=== PATIENT | male | born 1990 | race Caucasian/White ===

== ENCOUNTER 2016-12-09 09:08 | Emergency (ER) | payer OTHER ==
[~2016-12-09] VITALS: Ht 190.5 cm; Wt 82.8 kg
[2016-12-09 09:09] VITALS: TEMP 37.2; Ht 190.5 cm; Wt 82.8 kg
[2016-12-09 10:36] LABS: BASO % 0.2 %; BASO ABS # 0.02 K/uL (0-0.2); COMPLETE YES; EOS % 0.4 %; HEMATOCRIT 40.1 % (42-52); IG% 0.1 %; LYMPH ABS # 2.65 K/uL (1.2-3.4); MEAN CELL VOLUME 83.2 fL (80-100); MEAN CORPUSCULAR HEMOGLOBIN 29.3 pg (25-34); MEAN CORPUSCULAR HGB CONC 35.2 g/dl (32-36); MEAN PLATELET VOLUME 10.5 fL (7.4-10.4); MONO % 12.2 %; NEUT % 59.1 %; PLATELET COUNT 245 K/uL (130-400); RED BLOOD COUNT 4.82 M/uL (4.7-6.1); WHITE BLOOD COUNT 9.46 K/uL (4.8-10.8)
[2016-12-09 10:47] LABS: PARTIAL THROMBOPLASTIN RATIO 1.1
[2016-12-09 10:53] LABS: BUN/CREATININE RATIO 10.8 (10-20); CREATININE 0.88 mg/dl (0.60-1.40); MAGNESIUM 2.2 mg/dl (1.8-2.4); POTASSIUM 3.2 mmol/L (3.5-5.1)
[2016-12-09 10:57] LABS: C-REACTIVE PROTEIN 4.86 mg/dl (0-0.29)
--- NOTE | 2016-12-09 11:15 | DIAGNOSTIC IMAGING REPORT ---
LEFT FOREARM ULTRASOUND CLINICAL HISTORY: pain/swelling to mid forearm COMPARISON STUDY: None. FINDINGS: There is extensive subcutaneous edema within the mid left forearm is a thrombosed superficial vein at this location. Adjacent to the thrombus vessel there is a 1.3 x 1.0 x 0.6 cm complex hypoechoic area. IMPRESSION: Thrombus superficial vein within the mid left forearm. There is an adjacent 1.3 x 1.0 x 0.6 cm complex hypoechoic area. This may represent a small developing abscess or hematoma. Follow-up ultrasound is recommended to ensure resolution. Electronically signed by: Jhoan Yuan M.D. 12/09/2016 11:14 AM Dictated Date/Time: 12/09/2016 11:11 AM
--- NOTE | 2016-12-09 11:16 | DIAGNOSTIC IMAGING REPORT ---
LEFT UPPER EXTREMITY VENOUS DOPPLER HISTORY: pain/swelling to mid forearm COMPARISON STUDY: None. FINDINGS: The left internal jugular vein is patent. There is normal flow within the left subclavian vein. There is normal flow and compressibility within the left axillary, basilic, brachial, radial, ulnar, and visualized cephalic veins. There is a thrombosed superficial vein within the mid left forearm. IMPRESSION: No DVT within the left upper extremity. However, there is a thrombosed superficial vein within the mid left forearm. Electronically signed by: Jhoan Yuan M.D. 12/09/2016 11:15 AM Dictated Date/Time: 12/09/2016 11:14 AM
[2016-12-09] MEDS ORDERED: CEFTRIAXONE SOD INJ 1 GM ADDVIAL IV STA (11:49)
[2016-12-09] MEDS ORDERED: SULFAMETHOXAZOLE/TRIMETHOPRIM DS 800/160MG TAB PO STA (11:49)
--- NOTE | 2016-12-09 12:07 | DIAGNOSTIC IMAGING REPORT ---
LEFT FOREARM 2 VIEWS ROUTINE CLINICAL HISTORY: Left forearm pain and swelling. COMPARISON: None FINDINGS: No fracture or osseous lesion is identified within the left radius or ulna. Alignment of the left elbow is anatomic and there is no joint effusion. IMPRESSION: No osseous abnormality of the left radius or ulna. Electronically signed by: Gordo Alvarez M.D. 12/09/2016 12:05 PM Dictated Date/Time: 12/09/2016 12:04 PM
[2016-12-09] MEDS ORDERED: KETOROLAC TROMETHAMINE 30 MG/ML VIAL IV STA (12:27)
[2016-12-09] MEDS ORDERED: CEPH500C PO (13:31)
[2016-12-09] MEDS ORDERED: TRAM-10 PO (13:31)
[2016-12-09] MEDS ORDERED: SULF800T23 PO (13:31)
--- NOTE | 2016-12-09 13:32 | EMERGENCY ROOM VISIT NOTE ---
History First contact with patient: 09:47 Chief Complaint: ARM PAIN Stated Complaint: LEFT FOREARM SWOLLEN, FEVER, VOMITING History of Present Illness The patient is a 26 year old male who presents to the Emergency Department by private vehicle for evaluation of pain and swelling to the LEFT forearm. He reports that he recently returned from [place]. He has had symptoms of pain and increasing swelling over the past week. There has been no recent trauma to the affected area. He denies any recent IV drug use. He reports swelling to the area without redness. He reports subjective fevers at home. He has used Tylenol with minimal relief of symptoms. He is had nausea and vomiting at home as well. He denies any history of similar symptoms or history of MRSA infection. He rates his current discomfort as a 10/10. He reports pain with range of motion of the affected forearm. He denies any numbness or tingling into the distal extremity. He denies any dizziness, lightheadedness, chest pain , palpitations, shortness of breath. He has no history of blood clots or bleeding disorders otherwise. Review of Systems A complete 10-point Review of Systems was discussed with the patient, with pertinent positives and negatives listed in the History of Present Illness. All remaining Review of Systems questions can be considered negative unless otherwise specified. Past Medical/Surgical History Medical Problems: (1) Depression (2) PNA (pneumonia) (3) [place] Teeth Removal Family History Patient reports no known family medical history. Social History Smoking Status: Current Every Day Smoker Smokeless Tobacco Use: No Alcohol Use: occasionally Drug Use: none Marital Status: single Housing Status: lives alone Occupation Status: employed Current/Historical Medications Scheduled Cephalexin Monohydrate (Keflex), 500 MG PO TID Sulfa/Trimethoprim (Bactrim Ds 800MG/160MG), 1 TAB PO BID Scheduled PRN Tramadol (Ultram), 1-2 TAB PO Q4H PRN for Pain Allergies Coded Allergies: No Known Allergies (Unverified , NONE, 12/09/16) Physical Exam Vital Signs Date Time Temp Pulse Resp B/P Pulse Ox O2 Delivery O2 Flow Rate FiO2 12/09/16 13:48 84 16 135/74 96 12/09/16 12:20 70 16 122/74 97 Room Air 12/09/16 09:09 37.2 87 18 138/87 98 Room Air Pain Rating (0-10): 10 Physical Exam VITAL SIGNS - Vital signs and nursing notes were reviewed. GENERAL - 26-year-old male appearing his stated age and in noticeable discomfort throughout the exam. MUSCULOSKELETAL - palpable lump noted to the lateral surface of the mid LEFT forearm. No fluctuance to palpation. No overlying erythema or ecchymosis. Subjectively tender to palpation. Mild edema noted in this area. Decreased range of motion distally secondary to patient's subjective discomfort. No lymphangitic streaking. NEUROLOGIC - SENSORY: Spinothalamic tract was found to be intact with ability to discriminate sharp versus dull sensation at the level of the LEFT elbow down to the fingertips. No sensory deficits of the dorsal column were appreciated utilizing light touch for evaluation. VASCULAR - Capillary refill was brisk. +3/5 radial pulse palpated. Medical Decision & Procedures ER Provider Diagnostic Interpretation: Radiological imaging and reports were reviewed by myself. Radiologist's Interpretation as follows: LEFT FOREARM ULTRASOUND CLINICAL HISTORY: pain/swelling to mid forearm COMPARISON STUDY: None. FINDINGS: There is extensive subcutaneous edema within the mid left forearm is a thrombosed superficial vein at this location. Adjacent to the thrombus vessel there is a 1.3 x 1.0 x 0.6 cm complex hypoechoic area. IMPRESSION: Thrombus superficial vein within the mid left forearm. There is an adjacent 1.3 x 1.0 x 0.6 cm complex hypoechoic area. This may represent a small developing abscess or hematoma. Follow-up ultrasound is recommended to ensure resolution. LEFT FOREARM 2 VIEWS ROUTINE CLINICAL HISTORY: Left forearm pain and swelling. COMPARISON: None FINDINGS: No fracture or osseous lesion is identified within the left radius or ulna. Alignment of the left elbow is anatomic and there is no joint effusion. IMPRESSION: No osseous abnormality of the left radius or ulna. LEFT UPPER EXTREMITY VENOUS DOPPLER HISTORY: pain/swelling to mid forearm COMPARISON STUDY: None. FINDINGS: The left internal jugular vein is patent. There is normal flow within the left subclavian vein. There is normal flow and compressibility within the left axillary, basilic, brachial, radial, ulnar, and visualized cephalic veins. There is a thrombosed superficial vein within the mid left forearm. IMPRESSION: No DVT within the left upper extremity. However, there is a thrombosed superficial vein within the mid left forearm. Laboratory Results 12/09/16 10:10 Red Blood Count 4.82, Mean Corpuscular Volume 83.2, Mean Corpuscular Hemoglobin 29.3, Mean Corpuscular Hemoglobin Concent 35.2, Mean Platelet Volume 10.5, Neutrophils (%) (Auto) 59.1, Lymphocytes (%) (Auto) 28.0, Monocytes (%) (Auto) 12.2, Eosinophils (%) (Auto) 0.4, Basophils (%) (Auto) 0.2, Neutrophils # (Auto ) 5.59, Lymphocytes # (Auto) 2.65, Monocytes # (Auto) 1.15, Eosinophils # (Auto ) 0.04, Basophils # (Auto) 0.02 12/09/16 10:10 Test 12/09/16 10:10 White Blood Count 9.46 K/uL (4.8-10.8) Red Blood Count 4.82 M/uL (4.7-6.1) Hemoglobin 14.1 g/dL (14.0-18.0) Hematocrit 40.1 % (42-52) Mean Corpuscular Volume 83.2 fL (80-100) Mean Corpuscular Hemoglobin 29.3 pg (25-34) Mean Corpuscular Hemoglobin Concent 35.2 g/dl (32-36) Platelet Count 245 K/uL (130-400) Mean Platelet Volume 10.5 fL (7.4-10.4) Neutrophils (%) (Auto) 59.1 % Lymphocytes (%) (Auto) 28.0 % Monocytes (%) (Auto) 12.2 % Eosinophils (%) (Auto) 0.4 % Basophils (%) (Auto) 0.2 % Neutrophils # (Auto) 5.59 K/uL (1.4-6.5) Lymphocytes # (Auto) 2.65 K/uL (1.2-3.4) Monocytes # (Auto) 1.15 K/uL (0.11-0.59) Eosinophils # (Auto) 0.04 K/uL (0-0.5) Basophils # (Auto) 0.02 K/uL (0-0.2) RDW Standard Deviation 43.6 fL (36.4-46.3) RDW Coefficient of Variation 14.2 % (11.5-14.5) Immature Granulocyte % (Auto) 0.1 % Immature Granulocyte # (Auto) 0.01 K/uL (0.00-0.02) Erythrocyte Sedimentation Rate 14 mm/hr (0-14) Prothrombin Time 11.0 SECONDS (9.0-12.0) Prothromb Time International Ratio 1.0 (0.9-1.1) Activated Partial Thromboplast Time 29.8 SECONDS (21.0-31.0) Partial Thromboplastin Ratio 1.1 Anion Gap 9.0 mmol/L (3-11) Est Creatinine Clear Calc Drug Dose 147.7 ml/min Estimated GFR () 136.4 Estimated GFR (Non- 117.7 BUN/Creatinine Ratio 10.8 (10-20) Calcium Level 9.0 mg/dl (8.5-10.1) Magnesium Level 2.2 mg/dl (1.8-2.4) Total Bilirubin 0.5 mg/dl (0.2-1) Aspartate Amino Transf (AST/SGOT) 12 U/L (15-37) Alanine Aminotransferase (ALT/SGPT) 19 U/L (12-78) Alkaline Phosphatase 44 U/L (45-117) Total Creatine Kinase 26 U/L (39-308) C-Reactive Protein 4.86 mg/dl (0-0.29) Total Protein 6.9 gm/dl (6.4-8.2) Albumin 3.5 gm/dl (3.4-5.0) Globulin 3.4 gm/dl (2.5-4.0) Albumin/Globulin Ratio 1.0 (0.9-2) Medications Administered Medications (Trade) Dose Ordered Sig/Onofre Route Start Time Stop Time Status Last Admin Dose Admin Ceftriaxone Sodium (Rocephin Inj) 1 gm NOW STAT IV 12/09/16 11:49 12/09/16 11:50 DC 12/09/16 12:33 1 GM Trimethoprim/ Sulfamethoxazole (Septra Ds 800/ 160MG Tab) 1 tab NOW STAT PO 12/09/16 11:49 12/09/16 11:50 DC 12/09/16 12:33 1 TAB Ketorolac Tromethamine (Toradol Inj) 30 mg NOW STAT IV 12/09/16 12:27 12/09/16 12:28 DC 12/09/16 12:43 30 MG ED Course Patient was seen and evaluated by myself. Labs were drawn, saline lock in place. X-ray of the affected forearm and ultrasound of the affected area as well as DVT evaluation were performed. Laboratory results demonstrate no acute leukocytosis, worrisome anemia, or bandemia. The patient has no significant electrolyte abnormalities. ESR is not elevated. CRP is minimally elevated. Patient was treated with IV Rocephin and oral Bactrim. Imaging studies as above. Laboratory results and imaging studies were reviewed with the patient who acknowledges understanding. Patient was educated on wound recheck in 48 hours. He was educated on worrisome symptoms for return visit to the emergency department. Patient discharged home afebrile and in good condition. Medical Decision Given the patient's presentation and stated complaints, I did elect to perform the above-mentioned workup. The patient presents today with pain and swelling to the LEFT forearm. He has no fever leukocytosis. He does have subjective fevers at home, however. The patient declines any use of intravenous drugs, however on reviewing his records, the patient has had multi-substance abuse in the past. I do not appreciate any track ramirez on exam. X-ray demonstrates no foreign bodies. Ultrasound demonstrates an area of collection which could be consistent with abscess or hematoma to the affected area. Exam is not consistent with a cellulitis or abscess at this point. He will be covered prophylactically with Keflex and Bactrim. He will follow-up in 48 hours for wound recheck. He will return for any changing or worsening symptoms. Patient discharged home afebrile and in good condition. In the evaluation and treatment of this patient, the following differential diagnoses were considered: Cellulitis, dermatitis, foreign body, necrotizing fasciitis, amongst others. Impression Primary Impression: Left upper extremity swelling Departure Information Dispostion Home / Self-Care Condition GOOD Prescriptions Tramadol (Ultram) 50 Mg Tab 1-2 TAB PO Q4H Y for Pain, #16 TAB For Initial Treatment Prov: Nestor Wayne PA-C 12/09/16 Sulfa/Trimethoprim (Bactrim Ds 800MG/160MG) Tab 1 TAB PO BID for 10 Days, #20 TAB Prov: Nestor Wayne PA-C 12/09/16 Cephalexin Monohydrate (Keflex) 500 Mg Cap 500 MG PO TID for 10 Days, #30 CAP Prov: Nestor Wayne PA-C 12/09/16 Referrals Nohelia Pham M.D. (MEDICAL) (PCP) Patient Instructions My [facility] Additional Instructions You've been seen in the emergency department today for a hematoma or early abscess to the LEFT upper extremity. Please take the Keflex and Bactrim as prescribed. You have been prescribed Ultram to be used for pain control. This is a narcotic medication. You cannot drive or consume alcohol while on this medicine. This medicine should only be used for pain that cannot be controlled with over-the- counter pain medicines. For pain control, you can use the following [id number] medicines (if >12 yo): - Regular strength (325mg/tab) Tylenol (acetaminophen) 2 tabs every 4-6 hours as needed. Do not exceed 12 tablets in a 24 hour period. Avoid taking more than 4 grams (4000 mg) of Tylenol per day. This includes any other sources of acetaminophen you may take on a regular basis. - Regular strength (200 mg/tab) Advil (ibuprofen) 1-2 tabs every 4-6 hours as needed. Do not exceed a dose of 3200 mg per day. Follow-up with your primary care provider for recheck of the forearm in 48 hours. Return sooner for any changing or worsening symptoms.
[2016-12-09 13:48] VITALS: BP 135/74; PULSE 84; O2SAT 96
[2017-01-06] MEDS ORDERED: WARF5TAB90 PO (18:12)
[2017-01-06] MEDS ORDERED: CEPH-571 PO (18:12)
[2017-01-06] MEDS ORDERED: OXYC-57 PO (18:12)
[2017-01-06] MEDS ORDERED: LVNIS80 SQ (18:12)
[2017-01-06] MEDS ORDERED: METR-163 PO (18:12)
== END 2016-12-09 13:48 | disposition home or self-care (01) ==
LOC: C.EDB 09:09
DX: M79.89 Other specified soft tissue disorders (principal); F32.9 Major depressive disorder, single episode, unspecified; F17.210 Nicotine dependence, cigarettes, uncomplicated

== ENCOUNTER 2016-12-11 18:02 | Inpatient (IN) | payer OTHER ==
[~2016-12-11] VITALS: Ht 190.5 cm; Wt 81.3 kg
[~2016-12-11 18:02] MED LIST: CEPH500C PO; SULF800T23 PO; TRAM-10 PO
[2016-12-11 19:46] LABS: BASO % 0.3 %; BASO ABS # 0.04 K/uL (0-0.2); COMPLETE YES; EOS % 0.7 %; HEMATOCRIT 39.8 % (42-52); IG% 0.1 %; LYMPH % 22.2 %; LYMPH ABS # 3.01 K/uL (1.2-3.4); MEAN CELL VOLUME 84.1 fL (80-100); MEAN CORPUSCULAR HEMOGLOBIN 29.6 pg (25-34); MEAN CORPUSCULAR HGB CONC 35.2 g/dl (32-36); MEAN PLATELET VOLUME 10.3 fL (7.4-10.4); MONO % 11.3 %; NEUT % 65.4 %; PLATELET COUNT 270 K/uL (130-400); RED BLOOD COUNT 4.73 M/uL (4.7-6.1); WHITE BLOOD COUNT 13.57 K/uL (4.8-10.8)
[2016-12-11] MEDS ORDERED: HYDROmorphone INJ 1 MG/ML SYR IV STA ×2 (19:58→20:45)
[2016-12-11] MEDS ORDERED: ONDANSETRON INJ 2 MG/ML 2 ML VIAL IV STA (19:58)
[2016-12-11] MEDS ORDERED: HYDROmorphone INJ 0.5 MG/0.5 ML SYR ONE ×2 (20:09→20:48)
[2016-12-11 20:24] LABS: ALB/GLOB RATIO 0.8 (0.9-2); BUN/CREATININE RATIO 7.3 (10-20); CALCIUM 8.8 mg/dl (8.5-10.1); CREATININE 0.97 mg/dl (0.60-1.40); POTASSIUM 3.9 mmol/L (3.5-5.1)
[2016-12-11] MEDS ORDERED: FENTANYL CITRATE INJ 50 MCG/1 ML 2 ML VIAL IV PRN (21:45)
[2016-12-11] MEDS ORDERED: HYDROmorphone INJ 1 MG/ML SYR IV PRN (21:45)
[2016-12-11] MEDS ORDERED: ATROPINE SULFATE 0.1 MG/ML 5ML SYR IV PRN (21:45)
[2016-12-11] MEDS ORDERED: ONDANSETRON INJ 2 MG/ML 2 ML VIAL IV PRN (21:45)
[2016-12-11] MEDS ORDERED: MEPERIDINE HCL 25 MG/ML CARP IV PRN (21:45)
[2016-12-11] MEDS ORDERED: LABETALOL HCL IV 5 MG/ML 20ML IV PRN (21:45)
[2016-12-11] MEDS ORDERED: EpHEDrine SULFATE INJ 50 MG/ML AMP IV PRN (21:45)
--- NOTE | 2016-12-11 21:48 | History & Physical Bridge Note ---
H&P Re-Evaluation Bridge Note: I have examined the patient, reviewed the History & Physical and in the interval since the performance of the History & Physical I have noted the following changes of clinical significance: No changes noted. Left volar forearm abscess with impending compartment syndrome. Consult/H and P completed # [id number]. Gonzalo Castillo DO
[2016-12-11] MEDS ORDERED: MIDAZOLAM HCL 1 MG/ML 2ML VIAL ONE (21:57)
[2016-12-11] MEDS ORDERED: FENTANYL CITRATE INJ 50 MCG/1 ML 2 ML VIAL ONE ×4 (21:57→23:32)
[2016-12-11] MEDS ORDERED: BACITRACIN 50000 UNIT VIAL IR ONE (22:41)
--- NOTE | 2016-12-11 22:58 | [facility] Post Operative Brief Note ---
Immediate Operative Summary Operative Date Dec 11, 2016. Pre-Operative Diagnosis Left forearm abscess, Impending Compartment Syndrome Post-Operative Diagnosis Left forearm abscess, Impending Compartment Syndrome, Local Muscle necrosis Brachioradialis Procedure(s) Performed Incision and Drainage Volar Forearm Abscess; Debridement of fascia; Debridement of Brachioradialis Muscle Surgeon Dr. Castillo Marine Engine Machinist Apprentice Surgeon(s) none Estimated Blood Loss 20 cc Findings See Dict Specimens For culture #1 Left forearm abcess sent for aerobic/anaerobic/gram stain culture and sensitivity Drains Iodoform gauze 1/2" x 2 Anesthesia GLMA Complication(s) None Disposition Recovery Room / PACU
[2016-12-11] MEDS ORDERED: MAGNESIUM HYDROXIDE SUSP 30 ML UDC PO PRN (23:00)
[2016-12-11] MEDS ORDERED: ACETAMINOPHEN 325 MG TAB PO PRN (23:00)
[2016-12-11] MEDS ORDERED: ALUMINUM/MAGNESIUM/SIMETH (MAALOX MAX) 30 ML UDC PO PRN (23:00)
[2016-12-11] MEDS ORDERED: ZOLPIDEM TARTRATE 5 MG TAB PO PRN (23:00)
[2016-12-11] MEDS ORDERED: HYDROmorphone INJ 2 MG/ML SYR/VIAL ONE ×2 (23:08→23:47)
[2016-12-11] MEDS ORDERED: LIDOCAINE HCL 2% 2 ML VIAL (20MG/ML) ONE (23:08)
[2016-12-11] MEDS ORDERED: PROPOFOL IV EMULSION 10 MG/ML 20 ML VIAL IV ONE (23:08)
[2016-12-11] MEDS ORDERED: KETOROLAC TROMETHAMINE 30 MG/ML VIAL ONE (23:32)
[2016-12-12] VITALS (9 sets, daily range): BP systolic 95–119; BP diastolic 51–67; PULSE 56–72; TEMP 36.3–37; O2SAT 94–98; Ht 190.5 cm; Wt 81.3 kg
--- NOTE | 2016-12-12 00:27 | Anesthesiology Progress Note ---
Anesthesia Post Op Note Date & Time Dec 12, 2016 at 00:24 Vital Signs Pain Intensity: 8 Vital Signs Past 12 Hours Date Time Temp Pulse Resp B/P Pulse Ox O2 Delivery O2 Flow Rate FiO2 12/12/16 00:15 36.4 72 15 131/67 98 Nasal Cannula 2 12/12/16 00:05 68 15 111/78 97 Nasal Cannula 2 12/11/16 23:55 75 12 122/72 97 Nasal Cannula 2 12/11/16 23:45 70 12 120/77 98 Nasal Cannula 2 12/11/16 23:35 73 12 120/83 97 Nasal Cannula 2 12/11/16 23:25 72 12 128/80 100 Nasal Cannula 2 12/11/16 23:15 69 17 128/76 100 Mask 10 12/11/16 23:05 70 17 122/81 100 Mask 10 12/11/16 22:59 37.0 68 18 117/69 100 Mask 10 12/11/16 20:18 74 20 117/74 98 Room Air 12/11/16 18:24 37.2 93 18 127/81 97 Room Air Notes Mental Status: alert / awake / arousable, participated in evaluation Pt Amnestic to Procedure: Yes Nausea / Vomiting: adequately controlled Pain: adequately controlled Airway Patency, RR, SpO2: stable & adequate BP & HR: stable & adequate Hydration State: stable & adequate Anesthetic Complications: no major complications apparent
[2016-12-12] MEDS: OXYCODONE HCL IR 5 MG TAB (IMMEDIATE RELEASE) PO PRN ×5 (01:06→21:28)
--- NOTE | 2016-12-12 01:37 | EMERGENCY ROOM VISIT NOTE ---
History Report prepared by Tevin: June Carrillo Under the Supervision of: Dr. Tanmay Theodore M.D. First contact with patient: 19:45 Chief Complaint: INFECTION Stated Complaint: MASSIVE RED LUMP ON LEFT FORE ARM History of Present Illness The patient is a 26 year old male who presents to the Emergency Room with complaints of worsening redness to his left forearm that initially began a week and a half ago. The patient states that he was in [place] when he noticed a small red dot on his left arm. Since then, he has developed redness and swelling to his left forearm. 2 days ago, the patient came to the emergency room because he developed a fever and vomiting in addition to the redness and swelling to his left arm. He had an ultrasound which revealed a 1.3 cm abscess as well as a thrombosed superficial vein. It did not show a DVT. He was discharged home on Bactrim and Keflex and given prescriptions for pain medication. Since then, the redness on his left forearm has spread to his axilla. He has pain with any movement of his left arm. Last evening, his left hand became totally numb. He had difficulty getting dressed secondary to his numbness. He can move his left hand and fingers but does feel like he has some decreased strength. Last night, his fever reached up to 104. He had multiple episodes of vomiting last night. The patient has not had any relief of his pain when taking the prescription pain medication. He denies any known tick or bug bites. Denies IV drug use, injections, or recent blood work. Denies chest pain, shortness of breath, or other complaints. He does not smoke. Source of History: patient Onset: 1.5 weeks ago Position: arm (right) Quality: other (red, swollen) Timing: worsening Associated Symptoms: + fevers (tmax 104), + numbness (left hand), + vomiting , + weakness (left hand), No SOB, No chest pain Review of Systems See HPI for pertinent positives & negatives. A total of 10 systems reviewed and were otherwise negative. 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 Social History Smoking Status: Never Smoker Alcohol Use: occasionally Drug Use: none Marital Status: single Housing Status: lives alone Occupation Status: employed Current/Historical Medications Scheduled Cephalexin Monohydrate (Keflex), 500 MG PO TID Sulfa/Trimethoprim (Bactrim Ds 800MG/160MG), 1 TAB PO BID Scheduled PRN Tramadol (Ultram), 1-2 TAB PO Q4H PRN for Pain Allergies Coded Allergies: No Known Allergies (Unverified , NONE, 12/09/16) Physical Exam Vital Signs Date Time Temp Pulse Resp B/P Pulse Ox O2 Delivery O2 Flow Rate FiO2 12/11/16 23:05 70 17 122/81 100 Mask 10 12/11/16 22:59 37.0 68 18 117/69 100 Mask 10 12/11/16 20:18 74 20 117/74 98 Room Air 12/11/16 18:24 37.2 93 18 127/81 97 Room Air Physical Exam Constitutional: Vital signs reviewed. Eyes: Pupils are equal round reactive to light. Conjunctiva are noninjected. ENT: Pharynx is clear without erythema or exudate. Mucous membranes are moist. Neck supple without meningeal signs. Respiratory: Clear to auscultation bilaterally. Breath sounds are equal bilaterally. Cardiovascular: Regular rate and rhythm. No rubs or gallops. GI: Soft, nondistended and nontender. Bowel sounds are present. Musculoskeletal: Large erythematous abscess over the mid-forearm over the flexor aspect with cellulitis extending distally as well as proximally to the upper arm. Soft tissue is firm in the left forearm. No lymphadenopathy. Radial pulse is strong. Integumentary: No cyanosis. Neurological: The patient is awake and alert. Numbness to the entire left hand. No significant motor defect to the left hand. Psychiatric: Normal affect. Medical Decision & Procedures Laboratory Results 12/11/16 19:30 Red Blood Count 4.73, Mean Corpuscular Volume 84.1, Mean Corpuscular Hemoglobin 29.6, Mean Corpuscular Hemoglobin Concent 35.2, Mean Platelet Volume 10.3, Neutrophils (%) (Auto) 65.4, Lymphocytes (%) (Auto) 22.2, Monocytes (%) (Auto) 11.3, Eosinophils (%) (Auto) 0.7, Basophils (%) (Auto) 0.3, Neutrophils # (Auto ) 8.87, Lymphocytes # (Auto) 3.01, Monocytes # (Auto) 1.54, Eosinophils # (Auto ) 0.09, Basophils # (Auto) 0.04 12/11/16 19:30 Test 12/11/16 19:30 White Blood Count 13.57 K/uL (4.8-10.8) Red Blood Count 4.73 M/uL (4.7-6.1) Hemoglobin 14.0 g/dL (14.0-18.0) Hematocrit 39.8 % (42-52) Mean Corpuscular Volume 84.1 fL (80-100) Mean Corpuscular Hemoglobin 29.6 pg (25-34) Mean Corpuscular Hemoglobin Concent 35.2 g/dl (32-36) Platelet Count 270 K/uL (130-400) Mean Platelet Volume 10.3 fL (7.4-10.4) Neutrophils (%) (Auto) 65.4 % Lymphocytes (%) (Auto) 22.2 % Monocytes (%) (Auto) 11.3 % Eosinophils (%) (Auto) 0.7 % Basophils (%) (Auto) 0.3 % Neutrophils # (Auto) 8.87 K/uL (1.4-6.5) Lymphocytes # (Auto) 3.01 K/uL (1.2-3.4) Monocytes # (Auto) 1.54 K/uL (0.11-0.59) Eosinophils # (Auto) 0.09 K/uL (0-0.5) Basophils # (Auto) 0.04 K/uL (0-0.2) RDW Standard Deviation 43.3 fL (36.4-46.3) RDW Coefficient of Variation 14.0 % (11.5-14.5) Immature Granulocyte % (Auto) 0.1 % Immature Granulocyte # (Auto) 0.02 K/uL (0.00-0.02) Anion Gap 9.0 mmol/L (3-11) Est Creatinine Clear Calc Drug Dose 131.5 ml/min Estimated GFR () 123.5 Estimated GFR (Non- 106.6 BUN/Creatinine Ratio 7.3 (10-20) Calcium Level 8.8 mg/dl (8.5-10.1) Total Bilirubin 0.8 mg/dl (0.2-1) Aspartate Amino Transf (AST/SGOT) 12 U/L (15-37) Alanine Aminotransferase (ALT/SGPT) 14 U/L (12-78) Alkaline Phosphatase 43 U/L (45-117) Total Protein 7.3 gm/dl (6.4-8.2) Albumin 3.2 gm/dl (3.4-5.0) Globulin 4.1 gm/dl (2.5-4.0) Albumin/Globulin Ratio 0.8 (0.9-2) Laboratory results as reviewed by me. Medications Administered Medications (Trade) Dose Ordered Sig/Onofre Route Start Time Stop Time Status Last Admin Dose Admin Ondansetron HCl (Zofran Inj) 4 mg NOW STAT IV 12/11/16 19:58 12/11/16 20:01 DC 12/11/16 20:14 4 MG Hydromorphone HCl (Dilaudid Inj) 0.5 mg STK-MED ONCE .ROUTE 12/11/16 20:09 12/11/16 20:11 DC 12/11/16 20:14 0.5 MG Hydromorphone HCl (Dilaudid Inj) 0.5 mg NOW STAT IV 12/11/16 20:45 12/11/16 20:46 DC 12/11/16 20:45 0.5 MG Bacitracin (Bacitracin Inj) 100,000 units ONE ONCE IR 12/11/16 22:41 12/11/16 22:43 DC 12/11/16 22:41 100,000 UNITS Oxycodone HCl (Roxicodone Immediate Rel Tab) 1-2 TABS FOR PAIN 1 TABLET ... Q4H PRN PO 12/11/16 23:00 12/25/16 22:59 12/12/16 01:06 10 MG Hydromorphone HCl (Dilaudid Inj) 2 mg STK-MED ONCE .ROUTE 12/11/16 23:08 12/11/16 23:10 DC 12/11/16 23:30 0.5 MG ED Course 1947: The patient was evaluated in room B2. A complete history and physical exam was performed. 1954: I discussed the case with Dr. Castillo - Orthopedics. He will come in to see the patient. 1957: Ordered Zofran Inj 4 mg IV, Dilaudid Inj 0.5 mg IV. 2044: I reassessed the patient. He was still having pain. Dr. Castillo has not seen him yet. Ordered Dilaudid Inj 0.5 mg IV. 2136: I spoke with Dr. Castillo. He will take the patient to the OR and will take care of ordering antibiotics. Medical Decision This is a 26-year-old male presents with left arm pain. Differential diagnosis includes compartment syndrome, abscess, thrombophlebitis, cellulitis, lymphangitis. I did perform a limited focused review of portions of the patient 's old chart on the electronic medical record. The patient was here on the for left forearm swelling, fever, and vomiting. He had an ultrasound which showed a 1.3 cm abscess as well as a thrombosed superficial vein. It did not show DVT. He was placed on Bactrim and Keflex. I did evaluate the patient as noted above. The patient is presenting with worsening pain to his left arm. He was previously seen here for an abscess in superficial thrombophlebitis and placed on 2 antibiotics. He has been compliant with this medication but has recently developed worse pain, numbness to his left hand since yesterday as well as fevers. I was concerned the patient has developed compartment syndrome. IV access was established. I did treat the patient with Zofran and Dilaudid IV. I did review the patient's blood work as noted in the electronic medical record. I did discuss the case with Dr. Castillo of orthopedics. The patient states he previously had a relationship with [facility]. Dr. Castillo did come to the emergency department and assessed the patient and took him to the OR emergently for impending compartment syndrome and drainage of the abscess. Consults Time Called: 1952 Consulting Physician: Dr. Castillo - [facility]opedicos[facility] Returned Call: 1954 I discussed the case with him. He will come in to see the patient. Additional Consults: Time Called: 2134 Consulted Physician: Dr. Jonathan Ureña [facility] Returned Call: 2136 Additional Comments: I spoke with Dr. Castillo. He will take the patient to the OR and will take care of ordering antibiotics. Impression Primary Impression: Abscess of left forearm Additional Impressions: Left arm cellulitis Compartment syndrome Scribe Attestation The scribe's documentation has been prepared under my direct and personally reviewed by me in its entirety. I confirm that the note above accurately reflects all work, treatment, procedures, and medical decision making performed by me. Departure Information Dispostion Being Evaluated By Surgeon Referrals Nohelia Pham M.D. (MEDICAL) (PCP) Patient Instructions My [facility] Problem Qualifiers
[2016-12-12] MEDS: D5W AND 1/2NSS + 20MEQ KCL 1,000 ML IV SCH ×2 (01:47→11:18)
[2016-12-12] MEDS ORDERED: CEFAZOLIN IV 2,000 MG in DEXTROSE 5% 50ML 50 ML IV SCH (02:00)
--- NOTE | 2016-12-12 02:31 | HISTORY & PHYSICAL EXAMINATION ---
DATE OF CONSULTATION: 12/11/2016 EMERGENCY ROOM CONSULTATION HISTORY OF PRESENT ILLNESS: This is a right hand dominant 26-year-old who is seen at the request of Dr. Theodore in the Emergency Department. Apparently, the patient had complaints of pain and redness to his volar left forearm which initially began week and a half ago with a small red dot. The patient denies any particular injury. He does not use any IV drugs and he had no trauma to the arm which he can recall. Since that time he has developed palpable redness and swelling to his left forearm. Two days ago, the patient came to the [facility] Emergency Room. He developed a fever and vomiting in addition to the redness and swelling in his left forearm. He had an ultrasound which revealed a 1.3 cm abscess as well as a thrombosed superficial vein. It did not show DVT. He was discharged home on Bactrim and p.o. Keflex and given prescription for pain medication. Since that time the redness in his left forearm has spread to his more proximal antecubital fossa and then up into the brachium of the left upper extremity. He also complains of some discomfort in his left axilla. He has pain with movement of his left arm and hand. He states that his hand became worse with some numbness and tingling with limited strength in the hand and forearm due to worsening of his condition. He stated that he had a fever of 104 as of last evening. He had more vomiting last evening and had no relief of pain with prescription pain medication. He denied any tick or bug bites that he can recall. No recent blood work. No shortness of breath, chest pain. No double vision or blurry vision. He denies tobacco use. PAST MEDICAL HISTORY: Depression, pneumonia and wisdom tooth removal. ALLERGIES: No known drug allergies. MEDICATIONS: Keflex 500 mg p.o. t.i.d., Bactrim DS 1 tab p.o. b.i.d., Ultram 1-2 tabs p.o. q. 4 hours p.r.n. pain. SOCIAL HISTORY: Denies tobacco or drug use. Occasional to rare alcohol use. He is single, lives alone. 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 PHYSICAL EXAMINATION: GENERAL: This is a 26-year-old who is alert and oriented x3. Speech clear and fluent. Affect is appropriate. Cranial nerves II-XII are grossly intact. HEENT: EOMI, PERRLA. Oral mucosa is moist. Dentition is fair. Trachea is midline. No JVD. LUNGS: Clear to auscultation bilaterally. ABDOMEN: Soft, nontender, nondistended. No guarding, rebound or rigidity. HEART: Regular rate and rhythm. GENITAL AND RECTAL: Deferred. EXTREMITIES: Left upper extremity demonstrates intact skin in the left forearm. He has a raised erythematous region on the volar aspect of his left mid forearm. It is significantly tender to palpation. There is increased turgor of the left forearm compared to the right forearm. He has exquisite pain with examination. He has discomfort with passive extension of his left hand and digits, radiating from the left forearm. 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 Radial pulses 2/4 in bilateral upper extremities, symmetric and equal. Dorsal compartment of the left forearm is soft. The mobile wad is also soft. He has streaking redness into the left antecubital fossa and then along the medial border of the brachium, in their distribution of the basilic vein. No palpable ropes or cords are noted proximal to the antecubital fossa. LABORATORY DATA: Reviewed. IMAGING: Reviewed radiograph of the left forearm, no osseous abnormalities, dated 12/09/2016. Ultrasound dated 12/09/2016: Thrombosed superficial vein within the mid left forearm, adjacent to 1.3 x 1.0 x 0.6 cm complex hypoechoic area, representing small developing abscess or hematoma. IMPRESSION: 1. Left forearm volar abscess, possible hematoma with expansion. 2. Left hand weakness and concern for left volar compartment syndrome. RECOMMENDATIONS: NPO to the operative suite for an incision and drainage of left forearm volar abscess, likely debridement of muscle, tissue and fascia, admission to the hospital for IV antibiotics and further care and monitoring. Thank you for the opportunity to consult in the care of this patient.
--- NOTE | 2016-12-12 02:34 | OPERATIVE REPORT ---
DATE OF OPERATION: 12/11/2016 PREOPERATIVE DIAGNOSES: 1. Left volar forearm abscess. 2. Impending compartment syndrome, left upper extremity. 3. Left hand weakness. POSTOPERATIVE DIAGNOSES: 1. Left volar forearm abscess. 2. Impending compartment syndrome, left forearm. 3. Local necrosis of the brachioradialis. PROCEDURES: 1. Incision and drainage left volar forearm abscess. 2. Debridement fascia. 3. Debridement muscle brachioradialis. SURGEON: Dr. Castillo. RESIDENTIAL TREATMENT SPECIALIST: None. ANESTHESIA: General LMA. SPECIMENS: Aerobic, anaerobic and Gram stain cultures of the left volar forearm. DRAINS: Iodoform gauze 1/2 inch x2. COMPLICATIONS: None. BLOOD LOSS: 20 mL. PERTINENT HISTORY: This is a 26-year-old gentleman who noticed a red jennifer on his left volar forearm, denied any trauma, denied any drug use or injections. No recent blood draws, no trauma that worsened over the last [id number]. He was seen in the Emergency Department approximately 2 days ago, had IV and oral antibiotics dispensed. He had worsening of symptoms with worsening vomiting, fevers to 104 degrees Fahrenheit, loss of strength and sensation to the distal portion of his left hand and forearm. He presented to the Emergency Department, consultation was made by the emergency physician. The patient had a left forearm with increased turgor, loss of function of the hand, loss of sensation with palpable pulses and was then scheduled for surgery as indicated due to concern for impending compartment syndrome. All potential risks, benefits, complications, alternatives, rehab, potential for incomplete relief of symptoms, need for further surgery, DVT, PE, , persistent pain, swelling, scarring, weakness, neurovascular injury, wound complications, loss of function of the hand, forearm and wrist, loss of sensation in the left upper extremity, need for further surgery, possible risk for amputation was discussed with the patient. The patient decided to proceed with the procedure as indicated. DESCRIPTION OF PROCEDURE: The patient was taken to the operative suite, placed supine on the operating room table. After review of the consent and identification of proper operative site, the patient was anesthetized, LMA was placed. Tourniquet was placed high on the left upper extremity over cast padding. Left upper extremity was then sterilely prepped and draped in usual fashion, elevated and tourniquet inflated to 250 mmHg. There was no exsanguination performed due to the infection. Next, an incision was made in the volar compartment and the mobile wad. The incision was deepened through the subcutaneous tissue in the abscess compartment and high pressure abscess fluid extruded from the left volar forearm. Aerobic, anaerobic and Gram stain specimens were obtained and sent to the laboratory for processing. Next, the incision was expanded in the fascia of typical Pedro incision. Incision approximately 10 cm in length. The abscess fluid was then completely evacuated and was noted to be ma dusky changes of the volar fascia. This was debrided with a rongeur until clear. Next, the ulnar border of the brachioradialis was noted to have some local tissue necrosis, this was debrided with a rongeur until clear. Next, the pulsatile lavage 6 liters of fluid with bacitracin added was then used to cleanse the abscess pocket until clear. Once this was completed, a red flexible vessel loop was then knotted and then used to weave the volar incision loosely closed; however, appropriately approximated to encourage drainage and at the same time achieving a relatively close approximation. Next two 1/2 inch iodoform gauze were placed in the wound to encourage drainage. Next, the vessel loop was then stapled in a crisscross pattern with a skin stapler to the volar aspect of the forearm, tied off at the separate end and cut. Next, a lightly compressive sterile dressing was applied to the volar aspect of the forearm including ABD pads, 4 x 4's, Xeroform gauze, cast roll and Kerlix roll over wrapped with a 4-inch Merlin wrap. The tourniquet was released. The patient was awakened and taken to recovery in stable condition. I attest to the content of the Intraoperative Record and any orders documented therein. Any exceptio ns are noted below.
[2016-12-12] MEDS: MoRPHine SULFATE 4 MG/ML 1 ML CARP\\VIAL IV PRN ×4 (04:32→18:28)
[2016-12-12] MEDS: KETOROLAC TROMETHAMINE 30 MG/ML VIAL IV. SCH ×3 (05:33→17:29)
[2016-12-12 06:05] LABS: HEMATOCRIT 35.4 % (42-52); MEAN CELL VOLUME 83.3 fL (80-100); MEAN CORPUSCULAR HEMOGLOBIN 28.5 pg (25-34); MEAN CORPUSCULAR HGB CONC 34.2 g/dl (32-36); MEAN PLATELET VOLUME 10.3 fL (7.4-10.4); PLATELET COUNT 233 K/uL (130-400); RED BLOOD COUNT 4.25 M/uL (4.7-6.1); WHITE BLOOD COUNT 11.22 K/uL (4.8-10.8)
[2016-12-12 06:27] LABS: BUN/CREATININE RATIO 8.8 (10-20); CALCIUM 8.4 mg/dl (8.5-10.1); CREATININE 0.96 mg/dl (0.60-1.40); POTASSIUM 3.5 mmol/L (3.5-5.1)
[2016-12-12] MEDS ORDERED: ASPIRIN 325 MG ECTAB PO SCH (09:00)
[2016-12-12] MEDS ORDERED: SULFAMETHOXAZOLE/TRIMETHOPRIM DS 800/160MG TAB PO SCH (09:00)
--- NOTE | 2016-12-12 09:02 | Orthopedic Progress Note ---
Orthopedic Progress Note Date of Service Dec 12, 2016. Subjective Post OP Day: 1 Reports: feeling well, pain controlled w PO medications Additional Notes: Patient states he is feeling well. Still having pain in the left forearm. But, the sensation in the left hand has come back and feels normal. Objective N/V intact, capillary refill less than 2 sec., A&O x3 Left upper extremity: dressing kept in place. Fingers mobile in left hand. Light touch is intact in the LUE and equal to the RUE. Date Time Temp Pulse Resp B/P Pulse Ox O2 Delivery O2 Flow Rate FiO2 12/12/16 07:16 36.5 56 17 95/62 96 Room Air 12/12/16 03:15 36.3 57 16 97/56 94 Room Air 12/12/16 02:14 36.6 62 16 111/67 98 Room Air 12/12/16 01:21 36.3 65 16 119/51 97 Nasal Cannula 1.0 12/12/16 00:45 37.0 72 24 114/60 95 Nasal Cannula 2.0 12/12/16 00:45 37.0 72 24 114/60 95 Nasal Cannula 2.0 12/12/16 00:45 95 Nasal Cannula 2.0 12/12/16 00:45 95 Nasal Cannula 2.0 12/12/16 00:25 67 13 121/67 97 Nasal Cannula 2 12/12/16 00:15 36.4 72 15 131/67 98 Nasal Cannula 2 12/12/16 00:05 68 15 111/78 97 Nasal Cannula 2 12/11/16 23:55 75 12 122/72 97 Nasal Cannula 2 12/11/16 23:45 70 12 120/77 98 Nasal Cannula 2 12/11/16 23:35 73 12 120/83 97 Nasal Cannula 2 12/11/16 23:25 72 12 128/80 100 Nasal Cannula 2 12/11/16 23:15 69 17 128/76 100 Mask 10 12/11/16 23:05 70 17 122/81 100 Mask 10 12/11/16 22:59 37.0 68 18 117/69 100 Mask 10 12/11/16 20:18 74 20 117/74 98 Room Air 12/11/16 18:24 37.2 93 18 127/81 97 Room Air Laboratory Results 24 Hours: Test 12/11/16 19:30 12/12/16 05:22 White Blood Count 13.57 K/uL Red Blood Count 4.73 M/uL Hemoglobin 14.0 g/dL 12.1 g/dL Hematocrit 39.8 % 35.4 % Mean Corpuscular Volume 84.1 fL Mean Corpuscular Hemoglobin 29.6 pg Mean Corpuscular Hemoglobin Concent 35.2 g/dl Platelet Count 270 K/uL Mean Platelet Volume 10.3 fL Neutrophils (%) (Auto) 65.4 % Lymphocytes (%) (Auto) 22.2 % Monocytes (%) (Auto) 11.3 % Eosinophils (%) (Auto) 0.7 % Basophils (%) (Auto) 0.3 % Neutrophils # (Auto) 8.87 K/uL Lymphocytes # (Auto) 3.01 K/uL Monocytes # (Auto) 1.54 K/uL Eosinophils # (Auto) 0.09 K/uL Basophils # (Auto) 0.04 K/uL Additional Notes: GRAM STAIN Final 12/12/16-724 RESULT MANY WBCs SEEN MANY GRAM POSITIVE COCCI FEW GRAM POSITIVE BACILLI OR AER/ELO CULT Results Pending Assessment & Plan Assessment: ~6-7 hours s/p 1. Incision and drainage left volar forearm abscess. 2. Debridement fascia. 3. Debridement muscle brachioradialis Plan: Dressing kept in place today. Plan for dressing change tomorrow and removal of some of the packing. Will re-evaluate for possible repeat I & D tomorrow. Awaiting culture results for antibiotic choice. ID consulted. Continue IV Ancef until ID input for any change. Inhouse Planning Pain Management: Toradol, Morphine, PO Tylenol, Oxy IR Discharge Planning Discharge Planning: uncertain
[2016-12-12] MEDS: MULTIVITAMIN TAB PO SCH (09:05)
[2016-12-12] MEDS: DOCUSATE SODIUM 100 MG CAP PO SCH ×2 (09:05→21:28)
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
[2016-12-12] MEDS: CEFTAROLINE FOSAMIL INJ 600 MG in SODIUM CHLORIDE 0.9% 250ML 250 ML IV SCH ×2 (10:44→21:28)
[2016-12-12] MEDS: ASPIRIN 81 MG ECTAB PO SCH (11:17)
[2016-12-12] MEDS: SODIUM CHLORIDE 0.9% 1000ML 1,000 ML IV SCH (14:18)
[2016-12-12] MEDS: TRAMADOL HCL 50 MG TAB PO PRN ×2 (16:15→21:27)
[2016-12-12] MEDS: ACETAMINOPHEN 500 MG TAB PO SCH (21:29)
[2016-12-13] VITALS (8 sets, daily range): BP systolic 96–132; BP diastolic 59–83; PULSE 55–100; TEMP 36.4–37.7; O2SAT 96–98
[2016-12-13] MEDS: KETOROLAC TROMETHAMINE 30 MG/ML VIAL IV. SCH (00:16)
[2016-12-13] MEDS: SODIUM CHLORIDE 0.9% 1000ML 1,000 ML IV SCH ×2 (03:42→17:43)
[2016-12-13] MEDS: MoRPHine SULFATE 4 MG/ML 1 ML CARP\\VIAL IV PRN ×2 (03:46→08:02)
[2016-12-13 05:38] LABS: HEMATOCRIT 34.9 % (42-52); MEAN CELL VOLUME 84.1 fL (80-100); MEAN CORPUSCULAR HEMOGLOBIN 28.2 pg (25-34); MEAN CORPUSCULAR HGB CONC 33.5 g/dl (32-36); MEAN PLATELET VOLUME 9.9 fL (7.4-10.4); PLATELET COUNT 210 K/uL (130-400); RED BLOOD COUNT 4.15 M/uL (4.7-6.1); WHITE BLOOD COUNT 7.24 K/uL (4.8-10.8)
[2016-12-13] MEDS: ACETAMINOPHEN 500 MG TAB PO SCH ×3 (06:07→21:53)
[2016-12-13] MEDS: OXYCODONE HCL IR 5 MG TAB (IMMEDIATE RELEASE) PO PRN ×2 (06:15→23:34)
[2016-12-13 06:31] LABS: BUN/CREATININE RATIO 7.5 (10-20); CALCIUM 8.4 mg/dl (8.5-10.1); CREATININE 0.83 mg/dl (0.60-1.40); POTASSIUM 4.1 mmol/L (3.5-5.1)
[2016-12-13] MEDS: MULTIVITAMIN TAB PO SCH (09:00)
[2016-12-13] MEDS: ASPIRIN 81 MG ECTAB PO SCH (09:00)
[2016-12-13] MEDS: DOCUSATE SODIUM 100 MG CAP PO SCH ×2 (09:00→21:53)
[2016-12-13] MEDS: CEFTAROLINE FOSAMIL INJ 600 MG in SODIUM CHLORIDE 0.9% 250ML 250 ML IV SCH ×2 (09:13→21:52)
--- NOTE | 2016-12-13 11:47 | Orthopedic Progress Note ---
Orthopedic Progress Note Date of Service Dec 13, 2016. Subjective Post OP Day: 2 Reports: complaints, Denies: pain controlled w PO medications (Still having a lot of pain despite IV Morphine and PO Oxy IR.) Objective N/V intact, capillary refill less than 2 sec., dressing C/D/I, A&O x3 LUE fingers are mobile. Sensation intact. Mild fluctuance over the left olecranon--possible start of septic olecranon bursitis in addition to the forearm infection. LUE swelling into the upper arm. Date Time Temp Pulse Resp B/P Pulse Ox O2 Delivery O2 Flow Rate FiO2 12/13/16 08:28 36.7 55 16 96/59 96 Room Air 12/13/16 07:45 Room Air 12/13/16 06:09 36.4 12/12/16 23:15 Room Air 12/12/16 22:37 36.7 68 17 98/61 95 Room Air 12/12/16 19:29 36.9 70 17 105/62 97 Room Air 12/12/16 16:00 Room Air 12/12/16 15:20 36.9 70 17 102/61 97 Room Air Laboratory Results 24 Hours: Test 12/13/16 05:25 Hematocrit 34.9 % Hemoglobin 11.7 g/dL Assessment & Plan Assessment: POD #2 s/p 1. Incision and drainage left volar forearm abscess. 2. Debridement fascia. 3. Debridement muscle brachioradialis Possible left elbow septic olecranon bursitis starting. Plan: Dressing kept in place today. ID changed IV antibiotic to Teflaro. Awaiting final cultures and sensitivities. Plan for to go to OR today for repeat I & D of the forearm and possible I & D of the left elbow bursitis. Inhouse Planning Pain Management: Toradol, Morphine, PO Tylenol, Oxy IR Discharge Planning Discharge Planning: uncertain
--- NOTE | 2016-12-13 11:59 | History & Physical Bridge Note ---
H&P Re-Evaluation Bridge Note: I have examined the patient, reviewed the History & Physical and in the interval since the performance of the History & Physical I have noted the following changes of clinical significance: No changes noted
[2016-12-13] MEDS: MoRPHine SULFATE 2 MG/ML CARP IV PRN ×6 (12:13→23:34)
[2016-12-13] MEDS ORDERED: PROPOFOL IV EMULSION 10 MG/ML 20 ML VIAL IV ONE (13:17)
[2016-12-13] MEDS ORDERED: LIDOCAINE HCL 2% 2 ML VIAL (20MG/ML) ONE (13:17)
[2016-12-13] MEDS ORDERED: ONDANSETRON INJ 2 MG/ML 2 ML VIAL ONE (13:17)
[2016-12-13] MEDS ORDERED: FENTANYL CITRATE INJ 50 MCG/1 ML 2 ML VIAL ONE ×3 (13:18→15:19)
[2016-12-13] MEDS ORDERED: MIDAZOLAM HCL 1 MG/ML 2ML VIAL ONE (13:18)
[2016-12-13] MEDS ORDERED: PHENYLEPHRINE 100MCG/ML 5ML SYR IV PRN (13:30)
[2016-12-13] MEDS ORDERED: EpHEDrine SULFATE INJ 50 MG/ML AMP IV PRN (13:30)
[2016-12-13] MEDS ORDERED: ATROPINE SULFATE 0.1 MG/ML 5ML SYR IV PRN (13:30)
[2016-12-13] MEDS ORDERED: ONDANSETRON INJ 2 MG/ML 2 ML VIAL IV PRN (13:30)
[2016-12-13] MEDS ORDERED: BACITRACIN 50000 UNIT VIAL IR ONE (15:27)
[2016-12-13] MEDS: HYDROmorphone INJ 2 MG/ML SYR/VIAL IV PRN ×4 (16:27→16:50)
--- NOTE | 2016-12-13 16:28 | [facility] Post Operative Brief Note ---
Immediate Operative Summary Operative Date Dec 13, 2016. Pre-Operative Diagnosis Left forearm abscess, septic left olecranon bursitis Post-Operative Diagnosis Same as pre-operative diagnosis Procedure(s) Performed Left Forearm Irrigation and Debridement, Left Olecranon Bursectomy, Partial Fasciectomy Forearm, Forearm Fascial Biopsy Surgeon Dr. Gene Castillo Inside Barrel Lathe Operator Surgeon(s) None Estimated Blood Loss 20ml Findings See Dict Specimens B: Left olecranon bursa Drains 1/2" iodoform gauze x 3 forearm and x3 elbow Anesthesia GLMA Complication(s) None Disposition Recovery Room / PACU
--- NOTE | 2016-12-13 16:56 | Anesthesiology Progress Note ---
Anesthesia Post Op Note Date & Time Dec 13, 2016 at 16:56 Vital Signs Pain Intensity: 8 Vital Signs Past 12 Hours Date Time Temp Pulse Resp B/P Pulse Ox O2 Delivery O2 Flow Rate FiO2 12/13/16 16:50 71 15 135/80 98 Nasal Cannula 2 12/13/16 16:40 76 12 134/80 94 Room Air 12/13/16 16:30 79 15 137/82 93 Room Air 12/13/16 16:22 36.7 98 12 133/88 93 Room Air 12/13/16 08:28 36.7 55 16 96/59 96 Room Air 12/13/16 07:45 Room Air 12/13/16 06:09 36.4 Notes Mental Status: alert / awake / arousable, participated in evaluation Pt Amnestic to Procedure: Yes Nausea / Vomiting: adequately controlled Pain: adequately controlled Airway Patency, RR, SpO2: stable & adequate BP & HR: stable & adequate Hydration State: stable & adequate Anesthetic Complications: no major complications apparent
--- NOTE | 2016-12-13 17:26 | OPERATIVE REPORT ---
DATE OF OPERATION: 12/13/2016 PREOPERATIVE DIAGNOSES: 1. Left forearm abscess. 2. Left septic olecranon bursitis. POSTOPERATIVE DIAGNOSES: Same. PROCEDURES: 1. Left forearm repeat irrigation and debridement including muscle and fascia. 2. Olecranon bursectomy. 3. Partial fasciectomy of the forearm. 4. Fascial biopsy. SURGEON: Gene Castillo DO [employer]: None. ANESTHESIA: General LMA. SPECIMENS: Aerobic, anaerobic and Gram stain specimens from the left olecranon bursa and fascial biopsy from the left volar forearm. DRAINS: [id number] iodoform gauze x3 in the forearm and x3 in the left olecranon region of the elbow. COMPLICATIONS: None. BLOOD LOSS: 20 mL. PERTINENT HISTORY OF PRESENT ILLNESS: This is a 26-year-old who had previous incision and drainage of a left forearm abscess 2 days prior, was placed on IV antibiotics in the hospital and he has had iodoform gauze and drains in the forearm. Initially, he improved with IV antibiotics; however, then began feeling poorly and had some pain in his posterior left elbow adjacent to the left olecranon. The patient was scheduled for repeat I\T\D of his left forearm and then was also scheduled for resection of a septic olecranon bursitis as indicated. All potential risks, benefits, complications, alternatives, rehab, potential for incomplete relief of symptoms, need for further surgery, DVT, PE, , persistent pain, swelling, scarring, weakness, neurovascular injury or wound dehiscence was discussed with the patient. The patient decided to proceed with the procedure as indicated. DESCRIPTION OF PROCEDURE: The patient was taken to the operative suite, placed supine on the operating room table. I reviewed the consent and identification of proper operative site, the patient was anesthetized, LMA was placed. Tourniquet was placed high on the left upper extremity over cast padding. Left upper extremity was then sterilely prepped and draped. The packing pulled from the left volar forearm. The left upper extremity was then elevated and the tourniquet was inflated to 250 mmHg. There was no exsanguination due to the infection. Next, the vessel loop closure was removed from the left forearm, skin marcial were left intact and the volar forearm was then carefully debrided with a rongeur including the fascia and some of the muscular fibers in the volar aspect of the forearm. The fibers were noted to be pink and with normal consistency, some increased turgor in general; however, there was no sequestered fluid collections were encountered. The tissue was not overly friable and fascial biopsy was obtained with a rongeur. Next, a partial fasciectomy was performed in the region of the left forearm volar aspect. This was performed with a rongeur. The tissue was noted to be contractile with electrocautery. Color was pink and red with appearance of viable tissue. The wound was then packed with moist sponge. New top gloves and top sheet were applied and attention was then directed toward the left olecranon bursa. There was noted to be boggy fluctuant region centered over the olecranon bursa and in light of the fact that the patient had an abscess in the forearm, incision was made for olecranon bursectomy. A 15 blade scalpel was used to make an incision in a curvilinear approach over the left olecranon bursa. Incision was deepened through subcutaneous tissue. Meticulous hemostasis was achieved with electrocautery. Full thickness skin flaps were developed and care was taken not to overly undermine the soft tissue. Olecranon bursa was then carefully dissected and then excised in its entirety using a Metzenbaum scissor. The bursa was partially ruptured and cultured for aerobic, anaerobic, Gram stain. Next, after the bursectomy had been completed, pulsatile lavage approximately 3 liters of bacitracin was used to cleanse the left olecranon bursal region. Next, the skin over the olecranon bursa was then closed using interrupted 3-0 nylon sutures, closed over iodoform gauze drains x3. Next, a top gloves were changed and the top sheet was applied followed by further irrigation of the left volar forearm with pulsatile lavage approximately 3 liters with bacitracin. Next, a vessel loop was then used to provisionally close the left volar forearm through the skin marcial that were left intact. This flexible wound closure was left intact to allow for soft tissue swelling and ease of repeat irrigation and debridement. The wound was packed with half inch iodoform gauze drains x3 and a lightly compressive sterile dressing was applied to the left forearm and left elbow consisting of Xeroform gauze, sterile 4 x 4's, ABD pads x2, sterile Webril and sterile Merlin wraps from the palm to the upper arm. The tourniquet was released. The patient was awakened and taken to recovery in stable condition. I attest to the content of the Intraoperative Record and any orders documented therein. Any exceptio ns are noted below.
--- NOTE | 2016-12-13 17:26 | Infectious Disease Progress Nt ---
Progress Note Date of Service Dec 13, 2016. Subjective Pt evaluation today including: conversation w/ patient, conversation w/ family , physical exam, chart review, lab review, review of studies, conversation w/ guidance consultant, review of inpatient medication list Patient developed worsening left elbow swelling consistent with development of septic bursitis. now status postoperative debridement of bursa and previously infected area. Cultures now growing alpha strep, non enterococcal, further identification sensitivities pending. Patient comfortable and hemodynamically stable postop. Currently afebrile. All Other Systems: Reviewed and Negative Medications Current Inpatient Medications Medications (Trade) Dose Ordered Sig/Onofre Route Start Time Stop Time Status Last Admin Dose Admin Oxycodone HCl (Roxicodone Immediate Rel Tab) 1-2 TABS FOR PAIN 1 TABLET ... Q4H PRN PO 12/11/16 23:00 12/25/16 22:59 12/13/16 06:15 10 MG Magnesium Hydroxide (Milk Of Magnesia Susp) 30 ml Q6H PRN PO 12/11/16 23:00 01/10/17 22:59 Docusate Sodium (coLACE CAP) 100 mg BID PO 12/12/16 09:00 01/11/17 08:59 12/12/16 21:28 100 MG Diphenhydramine HCl (Benadryl Inj) 25 mg Q8H PRN IV 12/11/16 23:00 01/10/17 22:59 Al Hydrox/Mg Hydrox/Simethicone (Maalox Max Susp) 15 ml Q4H PRN PO 12/11/16 23:00 01/10/17 22:59 Zolpidem Tartrate (Ambien Tab) 5 mg HSZ PRN PO 12/11/16 23:00 01/10/17 22:59 Multivitamins 1 tab 1 tab QAM PO 12/12/16 09:00 01/11/17 08:59 12/12/16 09:05 1 TAB Ceftaroline Fosamil/Sodium Chloride (Teflaro Inj/Nss 250ml) 270 ml @ 250 mls/hr Q12@0900,2100 IV 12/12/16 10:00 12/22/16 09:59 12/13/16 09:13 250 MLS/HR Aspirin 81 mg 81 mg QAM PO 12/12/16 11:00 01/11/17 10:59 12/12/16 11:17 81 MG Sodium Chloride (Nss 1000ml) 1,000 ml @ 75 mls/hr [id number] IV 12/12/16 14:00 01/11/17 13:59 12/13/16 03:42 75 MLS/HR Tramadol HCl (Ultram Tab) `1-2 tabs for pain 1 tab ... Q4H PRN PO 12/12/16 14:30 01/11/17 14:29 12/12/16 21:27 100 MG Acetaminophen (Tylenol Tab) 1,000 mg Q8 PO 12/12/16 22:00 01/11/17 21:59 12/13/16 06:07 1,000 MG Morphine Sulfate (MoRPHine SULFATE INJ) 2 mg Q1HWA PRN IV 12/13/16 12:00 12/27/16 11:59 12/13/16 12:13 2 MG Hydromorphone HCl (Dilaudid Inj) 0.5 mg Q5M PRN IV 12/13/16 13:30 12/13/16 18:30 12/13/16 16:50 0.5 MG Ondansetron HCl (Zofran Inj) 4 mg ONE PRN IV 12/13/16 13:30 12/13/16 18:30 Ephedrine Sulfate (EpHEDrine SULFATE INJ) 5 mg Q5M PRN IV 12/13/16 13:30 12/13/16 18:30 Atropine Sulfate (Atropine Sulfate 0.1MG/Ml Inj) 0.5 mg Q1M PRN IV 12/13/16 13:30 12/13/16 18:30 Phenylephrine HCl (Parminder-Synephrine 500MCG/5ML Syr) 100 mcg Q5M PRN IV 12/13/16 13:30 12/13/16 18:30 Objective Vital Signs Date Time Temp Pulse Resp B/P Pulse Ox O2 Delivery O2 Flow Rate FiO2 12/13/16 17:10 36.3 68 12 126/83 98 Nasal Cannula 2 12/13/16 17:00 70 14 125/75 98 Nasal Cannula 2 12/13/16 16:50 71 15 135/80 98 Nasal Cannula 2 12/13/16 16:40 76 12 134/80 94 Room Air 12/13/16 16:30 79 15 137/82 93 Room Air 12/13/16 16:22 36.7 98 12 133/88 93 Room Air 12/13/16 08:28 36.7 55 16 96/59 96 Room Air 12/13/16 07:45 Room Air 12/13/16 06:09 36.4 12/12/16 23:15 Room Air 12/12/16 22:37 36.7 68 17 98/61 95 Room Air 12/12/16 19:29 36.9 70 17 105/62 97 Room Air Physical Exam General Appearance: WD/WN, no apparent distress Eyes: normal inspection, EOMI, sclerae normal ENT: normal ENT inspection, hearing grossly normal, pharynx normal Neck: supple, no adenopathy, trachea midline Respiratory/Chest: lungs clear, normal breath sounds, no respiratory distress Cardiovascular: regular rate, rhythm, no gallop, no murmur Abdomen: normal bowel sounds, non tender, soft, no organomegaly Extremities: non-tender, no calf tenderness, normal capillary refill Neurologic/Psychiatric: alert, oriented x 3 Skin: normal color, no rash, + pertinent finding ( Surgical dressing intact left arm) Lymphatic: no adenopathy Laboratory Results Date/Time Source Procedure Growth Status 12/13/16 15:09 Joint Fluid/Space (Synovial) Elbow Left Gram Stain Pending Received 12/13/16 15:09 Joint Fluid/Space (Synovial) Elbow Left Bacterial Culture Pending Received Last 24 Hours Test 12/13/16 05:25 White Blood Count 7.24 K/uL Red Blood Count 4.15 M/uL Hemoglobin 11.7 g/dL Hematocrit 34.9 % Mean Corpuscular Volume 84.1 fL Mean Corpuscular Hemoglobin 28.2 pg Mean Corpuscular Hemoglobin Concent 33.5 g/dl RDW Standard Deviation 43.1 fL RDW Coefficient of Variation 14.0 % Platelet Count 210 K/uL Mean Platelet Volume 9.9 fL Sodium Level 142 mmol/L Potassium Level 4.1 mmol/L Chloride Level 108 mmol/L Carbon Dioxide Level 28 mmol/L Anion Gap 6.0 mmol/L Blood Urea Nitrogen 6 mg/dl Creatinine 0.83 mg/dl Est Creatinine Clear Calc Drug Dose 153.7 ml/min Estimated GFR () 139.8 Estimated GFR (Non- 120.6 BUN/Creatinine Ratio 7.5 Random Glucose 98 mg/dl Calcium Level 8.4 mg/dl Assessment and Plan year-old male with necrotizing infection and abscess of left forearm with developing compartment syndrome, status post initial debridement, then with developing septic bursitis, now status post re-debridement with cultures thus far growing alpha strep. Patient to be continued on current IV antibiotics pending final culture results. Length of IV antibiotics will be determined by clinical response. Will follow.
[2016-12-14] VITALS (9 sets, daily range): BP systolic 103–133; BP diastolic 66–77; PULSE 67–108; TEMP 36.6–39.6; O2SAT 94–97
[2016-12-14] MEDS: MoRPHine SULFATE 2 MG/ML CARP IV PRN ×8 (00:53→23:48)
[2016-12-14] MEDS: OXYCODONE HCL IR 5 MG TAB (IMMEDIATE RELEASE) PO PRN ×5 (03:13→22:20)
[2016-12-14] MEDS ORDERED: NURSING VERBAL MED ORDER ONE ×2 (04:45→22:15)
[2016-12-14] MEDS ORDERED: KETOROLAC TROMETHAMINE 30 MG/ML VIAL ONE ×2 (04:46→22:18)
[2016-12-14] MEDS ORDERED: KETOROLAC TROMETHAMINE 30 MG/ML VIAL IV. STA ×2 (05:01→22:18)
[2016-12-14] MEDS: SODIUM CHLORIDE 0.9% 1000ML 1,000 ML IV SCH ×2 (05:33→19:34)
[2016-12-14] MEDS: ACETAMINOPHEN 500 MG TAB PO SCH ×3 (05:34→21:53)
[2016-12-14 06:21] LABS: HEMATOCRIT 37.8 % (42-52); MEAN CELL VOLUME 82.5 fL (80-100); MEAN CORPUSCULAR HEMOGLOBIN 28.6 pg (25-34); MEAN CORPUSCULAR HGB CONC 34.7 g/dl (32-36); MEAN PLATELET VOLUME 10.2 fL (7.4-10.4); PLATELET COUNT 329 K/uL (130-400); RED BLOOD COUNT 4.58 M/uL (4.7-6.1); WHITE BLOOD COUNT 12.61 K/uL (4.8-10.8)
[2016-12-14] MEDS: MULTIVITAMIN TAB PO SCH (08:55)
[2016-12-14] MEDS: ASPIRIN 81 MG ECTAB PO SCH (08:55)
[2016-12-14] MEDS: DOCUSATE SODIUM 100 MG CAP PO SCH ×2 (08:55→21:06)
[2016-12-14] MEDS: CEFTAROLINE FOSAMIL INJ 600 MG in SODIUM CHLORIDE 0.9% 250ML 250 ML IV SCH ×2 (08:57→21:07)
--- NOTE | 2016-12-14 14:00 | Orthopedic Progress Note ---
Orthopedic Progress Note Date of Service Dec 14, 2016. Subjective Post OP Day: 3 Reports: feeling well, Denies: SOB, calf pain, chest pain, light headedness, nausea / vomiting, pain controlled w PO medications Objective calves soft nontender, N/V intact, capillary refill less than 2 sec., A&O x3, hemovac drainage (packing pulled today and reapplied new dressing) Date Time Temp Pulse Resp B/P Pulse Ox O2 Delivery O2 Flow Rate FiO2 12/14/16 08:08 36.6 67 16 104/68 97 Room Air 12/14/16 07:47 Room Air 12/14/16 06:31 37.1 12/14/16 03:44 39.5 12/14/16 03:03 103 16 133/77 95 Room Air 12/14/16 02:51 39.2 12/14/16 02:40 39.6 108 18 122/68 94 Room Air 12/13/16 23:30 Room Air 12/13/16 22:45 37.7 100 18 124/71 97 Room Air 12/13/16 20:23 37.1 84 18 132/83 98 Room Air 12/13/16 19:14 37.1 78 18 128/79 97 Room Air 12/13/16 18:22 37.2 70 18 124/77 97 Room Air 12/13/16 18:00 36.8 74 16 130/77 96 Room Air 12/13/16 17:20 97 Nasal Cannula 2.0 12/13/16 17:20 Nasal Cannula 2.0 12/13/16 17:20 37.0 75 16 128/79 97 Nasal Cannula 2.0 12/13/16 17:10 36.3 68 12 126/83 98 Nasal Cannula 2 12/13/16 17:00 70 14 125/75 98 Nasal Cannula 2 12/13/16 16:50 71 15 135/80 98 Nasal Cannula 2 12/13/16 16:40 76 12 134/80 94 Room Air 12/13/16 16:30 79 15 137/82 93 Room Air 12/13/16 16:22 36.7 98 12 133/88 93 Room Air Laboratory Results 24 Hours: Test 12/14/16 05:51 Hematocrit 37.8 % Hemoglobin 13.1 g/dL Assessment & Plan Assessment: POD #3 s/p 1. Incision and drainage left volar forearm abscess. 2. Debridement fascia. 3. Debridement muscle brachioradialis POD #1 S/P repeat I and D forearm with olecranon bursectomy . Plan: Dressing changed and partial packing pulled. ID changed IV antibiotic to Teflaro. Awaiting final cultures and sensitivities. Plan for to go to OR tomorrow for repeat I & D of the forearm and repeat I & D of the left elbow with closure of incisions tomorrow NPO after midnight. Inhouse Planning Pain Management: Toradol, Morphine, PO Tylenol, Oxy IR Discharge Planning Discharge Planning: uncertain
[2016-12-15] VITALS (10 sets, daily range): BP systolic 108–134; BP diastolic 66–78; PULSE 67–84; TEMP 36.5–37.6; O2SAT 94–100
[2016-12-15] MEDS: MoRPHine SULFATE 2 MG/ML CARP IV PRN ×7 (04:38→21:24)
[2016-12-15] MEDS: ACETAMINOPHEN 500 MG TAB PO SCH ×3 (05:01→21:26)
[2016-12-15 05:37] LABS: HEMATOCRIT 38.1 % (42-52); MEAN CORPUSCULAR HEMOGLOBIN 27.9 pg (25-34); MEAN CORPUSCULAR HGB CONC 33.6 g/dl (32-36); MEAN PLATELET VOLUME 10.1 fL (7.4-10.4); PLATELET COUNT 280 K/uL (130-400); RED BLOOD COUNT 4.59 M/uL (4.7-6.1)
[2016-12-15] MEDS ORDERED: LIDOCAINE HCL 2% 2 ML VIAL (20MG/ML) ONE (07:37)
[2016-12-15] MEDS ORDERED: PROPOFOL IV EMULSION 10 MG/ML 20 ML VIAL IV ONE ×2 (07:37→09:22)
[2016-12-15] MEDS ORDERED: HYDROmorphone INJ 2 MG/ML SYR/VIAL IV PRN (08:00)
[2016-12-15] MEDS ORDERED: ATROPINE SULFATE 0.1 MG/ML 5ML SYR IV PRN (08:00)
[2016-12-15] MEDS ORDERED: PHENYLEPHRINE 100MCG/ML 5ML SYR IV PRN (08:00)
[2016-12-15] MEDS ORDERED: EpHEDrine SULFATE INJ 50 MG/ML AMP IV PRN (08:00)
[2016-12-15] MEDS ORDERED: ONDANSETRON INJ 2 MG/ML 2 ML VIAL IV PRN (08:00)
[2016-12-15] MEDS ORDERED: MIDAZOLAM HCL 1 MG/ML 2ML VIAL ONE (08:09)
[2016-12-15] MEDS ORDERED: FENTANYL CITRATE INJ 50 MCG/1 ML 2 ML VIAL ONE ×4 (08:09→09:16)
[2016-12-15] MEDS ORDERED: BACITRACIN 50000 UNIT VIAL IR ONE (08:55)
[2016-12-15] MEDS: CEFTAROLINE FOSAMIL INJ 600 MG in SODIUM CHLORIDE 0.9% 250ML 250 ML IV SCH ×2 (09:00→21:33)
[2016-12-15] MEDS ORDERED: DEXAMETHASONE SOD INJ 4 MG/ML VIAL ONE (09:22)
[2016-12-15] MEDS ORDERED: ONDANSETRON INJ 2 MG/ML 2 ML VIAL ONE (09:22)
[2016-12-15] MEDS ORDERED: DiphenhydrAMINE HCL 50 MG/ML VIAL ONE (09:38)
[2016-12-15] MEDS ORDERED: HYDROmorphone INJ 1 MG/ML SYR ONE (09:55)
--- NOTE | 2016-12-15 10:13 | [facility] Post Operative Brief Note ---
Immediate Operative Summary Operative Date Dec 15, 2016. Pre-Operative Diagnosis ABSCESS LEFT FOREARM; SEPTIC OLECRANON BURSITIS Post-Operative Diagnosis ABSCESS LEFT FOREARM; SEPTIC OLECRANON BURSITIS Procedure(s) Performed IRRIGATION AND DEBRIDEMENT LEFT FOREARM; IRRIGATION AND DEBRIDEMENT LEFT ELBOW Surgeon DR. 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
[2016-12-15] MEDS: SODIUM CHLORIDE 0.9% 1000ML 1,000 ML IV SCH ×2 (10:53→21:26)
--- NOTE | 2016-12-15 10:58 | Anesthesiology Progress Note ---
Anesthesia Post Op Note Date & Time Dec 15, 2016 at 10:58 Vital Signs Pain Intensity: 9.0 Vital Signs Past 12 Hours Date Time Temp Pulse Resp B/P Pulse Ox O2 Delivery O2 Flow Rate FiO2 12/15/16 10:36 79 14 135/67 97 Nasal Cannula 2 12/15/16 10:25 36.9 77 12 136/80 97 Nasal Cannula 2 12/15/16 10:15 78 17 133/81 96 Nasal Cannula 2 12/15/16 10:05 83 13 141/82 95 Mask 10 12/15/16 09:55 82 16 135/85 99 Mask 10 12/15/16 09:47 37.9 89 15 145/85 99 Mask 10 12/15/16 07:10 Room Air 12/15/16 06:46 37.6 81 18 122/77 98 Room Air 12/15/16 05:35 36.9 73 16 123/75 100 Room Air 12/14/16 23:45 Room Air Notes Mental Status: alert / awake / arousable, participated in evaluation Pt Amnestic to Procedure: Yes Nausea / Vomiting: adequately controlled Pain: adequately controlled Airway Patency, RR, SpO2: stable & adequate BP & HR: stable & adequate Hydration State: stable & adequate Anesthetic Complications: no major complications apparent
--- NOTE | 2016-12-15 11:19 | OPERATIVE REPORT ---
DATE OF OPERATION: 12/15/2016 PREOPERATIVE DIAGNOSES: 1. Abscess, left forearm. 2. Septic olecranon bursitis. POSTOPERATIVE DIAGNOSIS: Same. PROCEDURE: 1. Irrigation and debridement, left forearm. 2. Irrigation and debridement, left elbow. SURGEON: Dr. Castillo. MASK DESIGNER: None. ANESTHESIA: General LMA. SPECIMENS: None. DRAINS: Hemovac x2 and 1/2 inch iodoform gauze x4. COMPLICATIONS: None. BLOOD LOSS: 40 mL. 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 Seen in the Emergency Department. Ultrasound demonstrated a fluid collection, noted to have an abscess, and then began the process of multiple irrigations and debridements of the forearm and now the left elbow. He has been on IV antibiotics and has had drains placed after every procedure; however, continues to have discharged from the forearm and the elbow. The patient was then scheduled for removal of packing and delayed primary closure today as indicated. All potential risks, benefits, complications, alternatives, rehab, potential for incomplete relief of symptoms, need for further surgery, DVT, PE, , persistent pain, swelling, scarring, weakness, neurovascular injury, wound complications were discussed with the patient. The patient decided to proceed with the procedure as indicated. PROCEDURE: The patient was taken to the operative suite, placed supine on the operating room table. I reviewed the consent and identification of proper operative site, patient anesthetized, LMA was placed. Tourniquet was placed high on the left upper extremity over cast padding, and packing pulled and sterilely prepped and draped in usual fashion. Next, the limb was then elevated and tourniquet inflated to 250 mmHg. There was no exsanguination performed due to the infection. The vessel loop closure from the left forearm was removed and there was noted to be purulent drainage from the forearm, therefore there was no indication for delayed primary closure and repeat irrigation and debridement was then performed using first a curette to curette the fascia and the soft tissues. There was no evidence of friable tissue. There was also no clear evidence of muscle necrosis. All purulent material was then evacuated from the forearm and pulsatile lavage was then used to cleanse the tissues with bacitracin, approximately 4.5 liters was used. Next, attention was then directed toward the elbow and sutures were removed. There was noted to be purulent drainage and decision made to perform a repeat irrigation and debridement with curette and rongeur to bleeding tissue. There is healthy tissue. There was no evidence of inflammation in the fascia. The wound was then irrigated with approximately 4 liters of sterile normal saline and pulse lavage with bacitracin. The incision was then loosely closed over a Hemovac drain and 2 separate 1/2 inch iodoform gauze drains. Next, attention was then directed back toward the forearm and the volar radial incision was then packed with iodoform gauze, drains x2 and a Hemovac drain. This was loosely closed using a vessel loop closure to allow free drainage of the left forearm. Next, a sterile lightly compressive dressing was applied to the left forearm and the left elbow, followed by application of Merlin wrap. The tourniquet was released. The patient was awakened and taken to recovery in stable condition. I attest to the content of the Intraoperative Record and any orders documented therein. Any exceptio ns are noted below.
[2016-12-15] MEDS ORDERED: CEFAZOLIN SOD 1 GM VIAL ONE (12:43)
[2016-12-15] MEDS: ASPIRIN 81 MG ECTAB PO SCH (13:24)
[2016-12-15] MEDS: DOCUSATE SODIUM 100 MG CAP PO SCH ×2 (13:24→21:25)
[2016-12-15] MEDS: MULTIVITAMIN TAB PO SCH (13:25)
[2016-12-15] MEDS: OXYCODONE HCL IR 5 MG TAB (IMMEDIATE RELEASE) PO PRN (17:10)
[2016-12-15] MEDS: DiphenhydrAMINE HCL 50 MG/ML VIAL IV PRN (21:24)
[2016-12-16] MEDS: OXYCODONE HCL IR 5 MG TAB (IMMEDIATE RELEASE) PO PRN ×5 (01:47→21:07)
[2016-12-16 04:15] VITALS: BP 94/64; PULSE 63; TEMP 36.4; O2SAT 97
[2016-12-16] MEDS: ACETAMINOPHEN 500 MG TAB PO SCH ×3 (05:37→21:55)
[2016-12-16 06:09] LABS: HEMATOCRIT 34.5 % (42-52); MEAN CELL VOLUME 82.9 fL (80-100); MEAN CORPUSCULAR HEMOGLOBIN 28.1 pg (25-34); MEAN CORPUSCULAR HGB CONC 33.9 g/dl (32-36); MEAN PLATELET VOLUME 10.2 fL (7.4-10.4); PLATELET COUNT 339 K/uL (130-400); RED BLOOD COUNT 4.16 M/uL (4.7-6.1)
[2016-12-16 07:15] VITALS: BP 109/67; PULSE 66; TEMP 36.6; O2SAT 95
[2016-12-16] MEDS: MoRPHine SULFATE 2 MG/ML CARP IV PRN ×5 (07:23→21:59)
--- NOTE | 2016-12-16 07:39 | Orthopedic Progress Note ---
Orthopedic Progress Note Date of Service Dec 16, 2016. Subjective Post OP Day: 1 Reports: complaints (Still having quite a bit of pain in the right forearm.), feeling well, Denies: pain controlled w PO medications Objective N/V intact, capillary refill less than 2 sec., dressing C/D/I, A&O x3 LUE: Incision at the elbow is well approximated. No erythema noted. Iodoform gauze packing noted in 3 areas. One area removed completely. 2 other areas had ~ 6-8 inches of packing removed. The left forearm continues to have the vessel loop closure. No purulence noted today. Skin is still taut but seems to be softer. No erythema noted. 2 packing sites of the forearm are in place. ~8-10 inches of packing removed from each site. There was a hemovac drain in place that had drained ~15 cc since yesterday's surgery. It was removed today. Date Time Temp Pulse Resp B/P Pulse Ox O2 Delivery O2 Flow Rate FiO2 12/16/16 07:15 36.6 66 18 109/67 95 Room Air 12/16/16 04:15 36.4 63 18 94/64 97 Room Air 12/15/16 23:01 36.7 67 18 108/66 96 Room Air 12/15/16 19:31 Room Air 12/15/16 19:08 36.8 84 14 113/72 95 Room Air 12/15/16 15:20 Room Air 12/15/16 15:06 36.5 80 18 114/70 94 Room Air 12/15/16 13:45 36.6 82 19 108/68 98 Nasal Cannula 2.0 12/15/16 12:45 36.6 74 16 119/77 97 2.0 12/15/16 11:45 36.7 74 17 131/78 96 Nasal Cannula 2.0 12/15/16 11:15 36.7 73 18 134/77 96 Nasal Cannula 2.0 12/15/16 10:45 37.0 77 14 128/78 94 Nasal Cannula 2.0 12/15/16 10:45 94 Nasal Cannula 2.0 12/15/16 10:36 79 14 135/67 97 Nasal Cannula 2 12/15/16 10:25 36.9 77 12 136/80 97 Nasal Cannula 2 12/15/16 10:15 78 17 133/81 96 Nasal Cannula 2 12/15/16 10:05 83 13 141/82 95 Mask 10 12/15/16 09:55 82 16 135/85 99 Mask 10 12/15/16 09:47 37.9 89 15 145/85 99 Mask 10 Laboratory Results 24 Hours: Test 12/16/16 05:18 Hematocrit 34.5 % Hemoglobin 11.7 g/dL Assessment & Plan Assessment: POD #1 s/p 1. Irrigation and debridement, left forearm. 2. Irrigation and debridement, left elbow. POD #4 s/p 1. Incision and drainage left volar forearm abscess. 2. Debridement fascia. 3. Debridement muscle brachioradialis POD #3 S/P repeat I and D forearm with olecranon bursectomy . Plan: Dressing changed and partial packing pulled. Continue IV Teflaro. May require another I & D and possible primary closure of the left forearm. Will discuss case with Dr. Castillo. Inhouse Planning Pain Management: Toradol, Morphine, PO Tylenol, Oxy IR Discharge Planning Discharge Planning: uncertain
--- NOTE | 2016-12-16 08:21 | Anesthesiology Progress Note ---
Anesthesia Post Op Note Date & Time Dec 16, 2016 at 08:20 Vital Signs Pain Intensity: 9.0 Vital Signs Past 12 Hours Date Time Temp Pulse Resp B/P Pulse Ox O2 Delivery O2 Flow Rate FiO2 12/16/16 07:15 36.6 66 18 109/67 95 Room Air 12/16/16 07:15 Room Air 12/16/16 04:15 36.4 63 18 94/64 97 Room Air 12/15/16 23:01 36.7 67 18 108/66 96 Room Air Notes Mental Status: alert / awake / arousable, participated in evaluation Pt Amnestic to Procedure: Yes Nausea / Vomiting: adequately controlled Pain: adequately controlled Airway Patency, RR, SpO2: stable & adequate BP & HR: stable & adequate Hydration State: stable & adequate Anesthetic Complications: no major complications apparent
[2016-12-16] MEDS: DOCUSATE SODIUM 100 MG CAP PO SCH ×2 (08:48→21:07)
[2016-12-16] MEDS: ASPIRIN 81 MG ECTAB PO SCH (08:48)
[2016-12-16] MEDS: MULTIVITAMIN TAB PO SCH (08:48)
[2016-12-16] MEDS: CEFTAROLINE FOSAMIL INJ 600 MG in SODIUM CHLORIDE 0.9% 250ML 250 ML IV SCH ×2 (08:54→21:07)
[2016-12-16] MEDS: TRAMADOL HCL 50 MG TAB PO PRN (08:55)
[2016-12-16] MEDS: SODIUM CHLORIDE 0.9% 1000ML 1,000 ML IV SCH (11:02)
--- NOTE | 2016-12-16 11:03 | Infectious Disease Progress Nt ---
Progress Note Date of Service Dec 16, 2016. Subjective Pt evaluation today including: conversation w/ patient, physical exam, chart review, lab review, review of studies, conversation w/ claims consultant ([facility]), review of inpatient medication list WBC count this morning was 9.20. Creatinine was 0.83. Blood cultures continued to show no growth. Culture from left lower arm abscess is growing alpha strep and now also growing anaerobic gram negative bacilli. Reviewed orthopedic progress notes. Noted packing taken out this morning and changed- may consider another I & D or primary closure. Patient continues to have pain in his left arm. He continues to have swelling of the left fingers and also tenderness up into the left elbow. He denies N/V/D , urinary symptoms, SOB, or cough. All Other Systems: Reviewed and Negative Medications Current Inpatient Medications Medications (Trade) Dose Ordered Sig/Onofre Route Start Time Stop Time Status Last Admin Dose Admin Oxycodone HCl (Roxicodone Immediate Rel Tab) 1-2 TABS FOR PAIN 1 TABLET ... Q4H PRN PO 12/11/16 23:00 12/25/16 22:59 12/16/16 05:38 10 MG Magnesium Hydroxide (Milk Of Magnesia Susp) 30 ml Q6H PRN PO 12/11/16 23:00 01/10/17 22:59 Docusate Sodium (coLACE CAP) 100 mg BID PO 12/12/16 09:00 01/11/17 08:59 12/16/16 08:48 100 MG Diphenhydramine HCl (Benadryl Inj) 25 mg Q8H PRN IV 12/11/16 23:00 01/10/17 22:59 12/15/16 21:24 25 MG Al Hydrox/Mg Hydrox/Simethicone (Maalox Max Susp) 15 ml Q4H PRN PO 12/11/16 23:00 01/10/17 22:59 Zolpidem Tartrate (Ambien Tab) 5 mg HSZ PRN PO 12/11/16 23:00 01/10/17 22:59 Multivitamins 1 tab 1 tab QAM PO 12/12/16 09:00 01/11/17 08:59 12/16/16 08:48 1 TAB Ceftaroline Fosamil/Sodium Chloride (Teflaro Inj/Nss 250ml) 270 ml @ 250 mls/hr Q12@0900,2100 IV 12/12/16 10:00 12/22/16 09:59 12/16/16 08:54 250 MLS/HR Aspirin 81 mg 81 mg QAM PO 12/12/16 11:00 01/11/17 10:59 12/16/16 08:48 81 MG Sodium Chloride (Nss 1000ml) 1,000 ml @ 75 mls/hr [id number] IV 12/12/16 14:00 01/11/17 13:59 12/15/16 21:26 75 MLS/HR Tramadol HCl (Ultram Tab) `1-2 tabs for pain 1 tab ... Q4H PRN PO 12/12/16 14:30 01/11/17 14:29 12/16/16 08:55 100 MG Acetaminophen (Tylenol Tab) 1,000 mg Q8 PO 12/12/16 22:00 01/11/17 21:59 12/16/16 05:37 1,000 MG Morphine Sulfate 2 mg 2 mg Q1HWA PRN IV 12/13/16 12:00 12/27/16 11:59 12/16/16 07:23 2 MG Metronidazole/Prmx (Flagyl / Nss/ Premixed Nss) 100 ml @ 100 mls/hr Q8H IV 12/16/16 11:00 12/26/16 10:59 UNV Objective Vital Signs Date Time Temp Pulse Resp B/P Pulse Ox O2 Delivery O2 Flow Rate FiO2 12/16/16 07:15 36.6 66 18 109/67 95 Room Air 12/16/16 07:15 Room Air 12/16/16 04:15 36.4 63 18 94/64 97 Room Air 12/15/16 23:01 36.7 67 18 108/66 96 Room Air 12/15/16 19:31 Room Air 12/15/16 19:08 36.8 84 14 113/72 95 Room Air 12/15/16 15:20 Room Air 12/15/16 15:06 36.5 80 18 114/70 94 Room Air 12/15/16 13:45 36.6 82 19 108/68 98 Nasal Cannula 2.0 12/15/16 12:45 36.6 74 16 119/77 97 2.0 12/15/16 11:45 36.7 74 17 131/78 96 Nasal Cannula 2.0 12/15/16 11:15 36.7 73 18 134/77 96 Nasal Cannula 2.0 Physical Exam General Appearance: WD/WN, no apparent distress Eyes: normal inspection, sclerae normal ENT: hearing grossly normal Neck: supple, trachea midline Respiratory/Chest: no respiratory distress, no accessory muscle use Cardiovascular: regular rate, rhythm Extremities: + pertinent finding (left arm with large dressing in place. Left fingers continue to be swollen. Tenderness and mild erythema into the left axilla) Neurologic/Psychiatric: alert, normal mood/affect Skin: warm/dry, no rash, + pertinent finding (mild erythema as described above) Laboratory Results RUN DATE: 12/16/16 [facility] LAB PAGE 1 RUN TIME: 1004 Specimen Inquiry PATIENT: MANASA MAURER LOC: Camila # : [id number] AGE/SX: 26/M ROOM: E311 REG : 12/11/[address]: Gene Castillo D.O. : 1990 BED: 1 DIS : STATUS: ADM IN TLOC: SPEC #: [id number] GASTON: 12/11/16 STATUS: RES REQ #: [id number] RECD: 12/11/[address] [facility] [address]: Tanmay Theodore M.D. SOURCE: ABSCESS ENTR: 12/11/16 [facility] DR: Gene Castillo D.O. [facility]: Liborio WHEELER Evan T MD Burke, P Brian, M.D. (MEDICAL) ORDERED: AER/ELO CULTSMR Procedure Result Verified Site GRAM STAIN Final 12/12/16 RESULT MANY WBCs SEEN MANY GRAM POSITIVE COCCI FEW GRAM POSITIVE BACILLI OR AER/ELO CULT Preliminary 12/16/16 Organism 1 ALPHA STREP. NOT ENTEROCOCCUS QUANITY MODERATE SENS NO SENSITIVITY TO FOLLOW Organism 2 ANAEROBIC GRAM NEGATIVE BACILL QUANITY MODERATE SENS NO SENSITIVITY TO FOLLOW Item Value Date Time Gram Stain - Final Resulted 12/13/16 1509 Joint Fluid/Space (Synovial) Elbow Left Gram Stain - Final Resulted 12/11/16 2225 Abscess Arm , Left Lower Blood Culture - Preliminary Resulted 12/11/162014 Blood NO GROWTH TO DATE. Blood Culture - Preliminary Resulted 12/11/162009 Blood NO GROWTH TO DATE. Last 24 Hours Test 12/16/16 05:18 White Blood Count 9.20 K/uL Red Blood Count 4.16 M/uL Hemoglobin 11.7 g/dL Hematocrit 34.5 % Mean Corpuscular Volume 82.9 fL Mean Corpuscular Hemoglobin 28.1 pg Mean Corpuscular Hemoglobin Concent 33.9 g/dl RDW Standard Deviation 40.9 fL RDW Coefficient of Variation 13.4 % Platelet Count 339 K/uL Mean Platelet Volume 10.2 fL Assessment and Plan Patient with necrotizing infection, abscess, and developing compartment syndrome of the left forearm along with septic left olecranon bursitis now s/p multiple I & D's. Initial surgical culture growing alpha strep and now also anaerobic GNB. He is currently on IV Teflaro. Will add IV Flagyl as well to cover anaerobes. He likely will need continued IV antibiotic therapy even post- discharge. Will probably change to IV Ceftriaxone plus PO Flagyl prior to discharge, but will continue current therapy pending final cultures, further washout/closure, and improvement. The patient will also need a PICC line if possible. We will follow. Plan: 1. Continue Teflaro 2. Add Flagyl PROVIDER ADDENDUM: Pt. reviewed with Ms. Rose. Agree with above assessment.
[2016-12-16 11:17] VITALS: BP 105/65; PULSE 68; TEMP 36.5; O2SAT 96
[2016-12-16] MEDS: METRONIDAZOLE / NSS 500 MG in PREMIXED NSS 100 ML IV SCH ×2 (12:00→19:44)
[2016-12-16 14:50] VITALS: BP 132/75; PULSE 61; TEMP 36.6; O2SAT 97
[2016-12-16 23:19] VITALS: BP 114/76; PULSE 62; PULSE 63; TEMP 36.8; O2SAT 96; O2SAT 97
[2016-12-17] MEDS: SODIUM CHLORIDE 0.9% 1000ML 1,000 ML IV SCH ×2 (00:02→13:21)
[2016-12-17] MEDS: DiphenhydrAMINE HCL 50 MG/ML VIAL IV PRN (00:02)
[2016-12-17] MEDS: OXYCODONE HCL IR 5 MG TAB (IMMEDIATE RELEASE) PO PRN ×2 (04:14→18:22)
[2016-12-17] MEDS: METRONIDAZOLE / NSS 500 MG in PREMIXED NSS 100 ML IV SCH ×3 (04:15→19:59)
[2016-12-17] MEDS: MoRPHine SULFATE 2 MG/ML CARP IV PRN ×7 (05:50→21:10)
[2016-12-17] MEDS: ACETAMINOPHEN 500 MG TAB PO SCH ×3 (05:53→22:00)
[2016-12-17 07:31] VITALS: BP 108/69; PULSE 64; TEMP 36.6; O2SAT 96
[2016-12-17] MEDS: DOCUSATE SODIUM 100 MG CAP PO SCH ×2 (08:16→21:10)
[2016-12-17] MEDS: MULTIVITAMIN TAB PO SCH (08:16)
[2016-12-17] MEDS: ASPIRIN 81 MG ECTAB PO SCH (08:16)
[2016-12-17] MEDS: TRAMADOL HCL 50 MG TAB PO PRN ×2 (08:24)
[2016-12-17] MEDS: CEFTAROLINE FOSAMIL INJ 600 MG in SODIUM CHLORIDE 0.9% 250ML 250 ML IV SCH ×2 (08:24→21:10)
--- NOTE | 2016-12-17 09:53 | Orthopedic Progress Note ---
Orthopedic Progress Note Date of Service Dec 17, 2016. Subjective Post OP Day: 2 Reports: complaints (Pain is better controlled today. ), feeling well Objective N/V intact, capillary refill less than 2 sec., A&O x3 LUE fingers are mobile. Overall swelling of the forearm has improved. No erythema or streaking noted. Some purulence noted at the forearm and the elbow when the remaining packing was removed. New dressing applied. Date Time Temp Pulse Resp B/P Pulse Ox O2 Delivery O2 Flow Rate FiO2 12/17/16 07:31 36.6 64 16 108/69 96 Room Air 12/17/16 07:30 Room Air 12/17/16 00:00 Room Air 12/16/16 23:19 36.8 62 18 114/76 97 Room Air 12/16/16 17:09 Room Air 12/16/16 14:50 36.6 61 18 132/75 97 Room Air 12/16/16 11:17 36.5 68 18 105/65 96 Room Air Laboratory Results 24 Hours: GRAM STAIN Final 12/12/16-12 RESULT MANY WBCs SEEN MANY GRAM POSITIVE COCCI FEW GRAM POSITIVE BACILLI OR AER/ELO CULT Preliminary 12/16/16-532 Organism 1 ALPHA STREP. NOT ENTEROCOCCUS QUANITY MODERATE SENS NO SENSITIVITY TO FOLLOW Organism 2 ANAEROBIC GRAM NEGATIVE BACILL QUANITY MODERATE SENS NO SENSITIVITY TO FOLLOW Assessment & Plan Assessment: POD #2 s/p 1. Irrigation and debridement, left forearm. 2. Irrigation and debridement, left elbow. POD #5 s/p 1. Incision and drainage left volar forearm abscess. 2. Debridement fascia. 3. Debridement muscle brachioradialis POD #4 S/P repeat I and D forearm with olecranon bursectomy . Plan: Dressing changed and packing pulled. Continue IV Teflaro. May require another I & D and possible primary closure of the left forearm. Will discuss case with Dr. Castillo Will have patient NPO in case he goes to OR today. May need to consider transfer to place with hyperbaric tx. Inhouse Planning Pain Management: Toradol, Morphine, PO Tylenol, Oxy IR Discharge Planning Discharge Planning: uncertain
--- NOTE | 2016-12-17 11:24 | Infectious Disease Progress Nt ---
Progress Note Date of Service Dec 17, 2016. Subjective Pt evaluation today including: conversation w/ patient, physical exam, chart review, lab review, review of studies, conversation w/ solutions consultant, review of inpatient medication list A bit more purulence expressed from wound today. Pain better controlled. Remains afebrile. Cultures growing strep and anaerobic gram-negative bacilli. Continues on ceftaroline and metronidazole. Awaiting decision regarding need for further operative debridement and closure. All Other Systems: Reviewed and Negative Medications Current Inpatient Medications Medications (Trade) Dose Ordered Sig/Onofre Route Start Time Stop Time Status Last Admin Dose Admin Oxycodone HCl (Roxicodone Immediate Rel Tab) 1-2 TABS FOR PAIN 1 TABLET ... Q4H PRN PO 12/11/16 23:00 12/25/16 22:59 12/17/16 04:14 10 MG Magnesium Hydroxide (Milk Of Magnesia Susp) 30 ml Q6H PRN PO 12/11/16 23:00 01/10/17 22:59 Docusate Sodium (coLACE CAP) 100 mg BID PO 12/12/16 09:00 01/11/17 08:59 12/17/16 08:16 100 MG Diphenhydramine HCl (Benadryl Inj) 25 mg Q8H PRN IV 12/11/16 23:00 01/10/17 22:59 12/17/16 00:02 25 MG Al Hydrox/Mg Hydrox/Simethicone (Maalox Max Susp) 15 ml Q4H PRN PO 12/11/16 23:00 01/10/17 22:59 Zolpidem Tartrate (Ambien Tab) 5 mg HSZ PRN PO 12/11/16 23:00 01/10/17 22:59 Multivitamins 1 tab 1 tab QAM PO 12/12/16 09:00 01/11/17 08:59 12/17/16 08:16 1 TAB Ceftaroline Fosamil/Sodium Chloride (Teflaro Inj/Nss 250ml) 270 ml @ 250 mls/hr Q12@0900,2100 IV 12/12/16 10:00 12/22/16 09:59 12/17/16 08:24 250 MLS/HR Aspirin 81 mg 81 mg QAM PO 12/12/16 11:00 01/11/17 10:59 12/17/16 08:16 81 MG Sodium Chloride (Nss 1000ml) 1,000 ml @ 75 mls/hr [id number] IV 12/12/16 14:00 01/11/17 13:59 12/17/16 00:02 75 MLS/HR Tramadol HCl (Ultram Tab) `1-2 tabs for pain 1 tab ... Q4H PRN PO 12/12/16 14:30 01/11/17 14:29 12/17/16 08:24 100 MG Acetaminophen (Tylenol Tab) 1,000 mg Q8 PO 12/12/16 22:00 01/11/17 21:59 12/17/16 05:53 1,000 MG Morphine Sulfate 2 mg 2 mg Q1HWA PRN IV 12/13/16 12:00 12/27/16 11:59 12/17/16 10:59 2 MG Metronidazole/Prmx (Flagyl / Nss/ Premixed Nss) 100 ml @ 100 mls/hr Q8H IV 12/16/16 12:00 12/26/16 11:59 12/17/16 04:15 100 MLS/HR Objective Vital Signs Date Time Temp Pulse Resp B/P Pulse Ox O2 Delivery O2 Flow Rate FiO2 12/17/16 07:31 36.6 64 16 108/69 96 Room Air 12/17/16 07:30 Room Air 12/17/16 00:00 Room Air 12/16/16 23:19 36.8 62 18 114/76 97 Room Air 12/16/16 17:09 Room Air 12/16/16 14:50 36.6 61 18 132/75 97 Room Air Physical Exam General Appearance: WD/WN, no apparent distress Eyes: normal inspection, EOMI ENT: normal ENT inspection, pharynx normal Neck: supple, no adenopathy, trachea midline Respiratory/Chest: lungs clear, normal breath sounds, no respiratory distress Cardiovascular: regular rate, rhythm, no gallop, no murmur Abdomen: normal bowel sounds, non tender, soft, no organomegaly Extremities: no calf tenderness, normal capillary refill Neurologic/Psychiatric: alert, oriented x 3 Skin: normal color, no rash, + pertinent finding ( Slightly improved erythema left arm, small amount of purulence) Laboratory Results RUN DATE: 12/16/16 [facility] [address] LAB PAGE 1 RUN TIME: 1456 Specimen Inquiry PATIENT: MANASA MAURER LOC: Camila U # : [id number] AGE/SX: 26/M ROOM: 11 REG : 12/11/[address]: Gene Castillo D.O. : 1990 BED: 1 DIS : STATUS: ADM IN TLOC: SPEC #: [id number] G[place]ON: 12/11/16 STATUS: RES REQ #: [id number] RECD: 12/11/[address]: Tanmay Theodore M.D. SOURCE: ABSCESS ENTR: 12/11/16 [facility] DR: Gene Castillo D.O. [facility]: Liborio WHEELER Evan T MD Burke, P Brian, M.D. (MEDICAL) ORDERED: AER/ELO CULTSMR Procedure Result Verified Site GRAM STAIN Final 12/12/1671 RESULT MANY WBCs SEEN MANY GRAM POSITIVE COCCI FEW GRAM POSITIVE BACILLI OR AER/ELO CULT Preliminary 12/16/163072 Organism 1 ALPHA STREP. NOT ENTEROCOCCUS QUANITY MODERATE SENS NO SENSITIVITY TO FOLLOW Organism 2 ANAEROBIC GRAM NEGATIVE BACILL QUANITY MODERATE SENS NO SENSITIVITY TO FOLLOW Assessment and Plan Patient with necrotizing infection, abscess, and developing compartment syndrome of the left forearm along with septic left olecranon bursitis now s/p multiple I & D's. Initial surgical culture growing alpha strep and now also anaerobic GNB. He is currently on IV Teflaro and IV Flagyl as well to cover anaerobes. He likely will need continued IV antibiotic therapy even post- discharge. Will probably change to IV Ceftriaxone plus PO Flagyl prior to discharge, but will continue current therapy pending final cultures, further washout/closure, and improvement. The patient will also need a PICC line if possible. We will follow. Plan: 1. Continue Teflaro and Flagyl
[2016-12-17 14:59] VITALS: BP 114/77; PULSE 72; TEMP 36.7; O2SAT 95
[2016-12-17 19:00] VITALS: O2SAT 95
[2016-12-17 22:46] VITALS: BP 114/67; PULSE 61; TEMP 36.8; O2SAT 97
[2016-12-18] VITALS (8 sets, daily range): BP systolic 101–131; BP diastolic 62–80; PULSE 59–79; TEMP 36.3–36.9; O2SAT 92–99
[2016-12-18] MEDS: MoRPHine SULFATE 2 MG/ML CARP IV PRN ×8 (00:02→22:15)
[2016-12-18] MEDS: METRONIDAZOLE / NSS 500 MG in PREMIXED NSS 100 ML IV SCH ×3 (04:16→21:05)
[2016-12-18] MEDS: SODIUM CHLORIDE 0.9% 1000ML 1,000 ML IV SCH ×2 (04:17→15:24)
[2016-12-18] MEDS: ACETAMINOPHEN 500 MG TAB PO SCH ×3 (05:56→22:11)
[2016-12-18] MEDS: CEFTAROLINE FOSAMIL INJ 600 MG in SODIUM CHLORIDE 0.9% 250ML 250 ML IV SCH ×2 (08:59→22:10)
[2016-12-18] MEDS: DOCUSATE SODIUM 100 MG CAP PO SCH ×2 (08:59→22:11)
[2016-12-18] MEDS: OXYCODONE HCL IR 5 MG TAB (IMMEDIATE RELEASE) PO PRN ×2 (08:59→20:58)
[2016-12-18] MEDS: MULTIVITAMIN TAB PO SCH (08:59)
[2016-12-18] MEDS: ASPIRIN 81 MG ECTAB PO SCH (09:00)
[2016-12-18] MEDS ORDERED: MIDAZOLAM HCL 1 MG/ML 2ML VIAL ONE (16:50)
[2016-12-18] MEDS ORDERED: FENTANYL CITRATE INJ 50 MCG/1 ML 2 ML VIAL ONE ×3 (16:51→19:06)
[2016-12-18] MEDS ORDERED: EpHEDrine SULFATE INJ 50 MG/ML AMP IV PRN (17:00)
[2016-12-18] MEDS ORDERED: ONDANSETRON INJ 2 MG/ML 2 ML VIAL IV PRN (17:00)
[2016-12-18] MEDS ORDERED: ATROPINE SULFATE 0.1 MG/ML 5ML SYR IV PRN (17:00)
--- NOTE | 2016-12-18 17:18 | History & Physical Bridge Note ---
H&P Re-Evaluation Bridge Note: I have examined the patient, reviewed the History & Physical and in the interval since the performance of the History & Physical I have noted the following changes of clinical significance: Trace purulence forearm, diminished erythema. Will require repeat I and D forearm and elbow with implantation antibiotic beads forearm and elbow with placement of wound vac.
[2016-12-18] MEDS ORDERED: CEFAZOLIN SOD 1000MG/55 ML D5W IV ONE (17:36)
[2016-12-18] MEDS ORDERED: PROPOFOL IV EMULSION 10 MG/ML 20 ML VIAL IV ONE (18:54)
[2016-12-18] MEDS ORDERED: ONDANSETRON INJ 2 MG/ML 2 ML VIAL ONE (18:54)
[2016-12-18] MEDS ORDERED: LIDOCAINE HCL 2% 2 ML VIAL (20MG/ML) ONE (18:54)
[2016-12-18] MEDS ORDERED: DEXAMETHASONE SOD INJ 4 MG/ML VIAL ONE (18:54)
[2016-12-18] MEDS ORDERED: CEFAZOLIN SOD 1 GM VIAL ONE (18:54)
[2016-12-18] MEDS ORDERED: BACITRACIN 50000 UNIT VIAL IR ONE (19:06)
[2016-12-18] MEDS ORDERED: VANCOMYCIN 1 GM TOP ONE (19:07)
[2016-12-18] MEDS ORDERED: GENTAMICIN 80 MG IRRIG ONE (19:10)
[2016-12-18] MEDS: FENTANYL CITRATE INJ 50 MCG/1 ML 2 ML VIAL IV PRN ×4 (20:00→20:15)
--- NOTE | 2016-12-18 20:01 | [facility] Post Operative Brief Note ---
Immediate Operative Summary Operative Date Dec 18, 2016. Pre-Operative Diagnosis Abscess left forearm, fasciitis, abscess left elbow Post-Operative Diagnosis Abscess left forearm; fasciitis; Local muscle necrosis Brachioradialis; abscess left elbow Procedure(s) Performed Repeat Left Upper Extremity Forearm Irrigation and Debridement 11cm wound with Primary Closure over Stimulan Antibiotic Beads; Subtotal Fasciectomy Forearm; Debridement Brachioradialis Muscle; Application Prevena Drain Forearm; Repeat Irrigation and Debridement Left Elbow with Primary Closure over Stimulan Antibiotic Beads Surgeon Dr. Castillo Teacher Pres[employer] Surgeon(s) Dr. Marie Estimated Blood Loss 20ml Findings See dict Specimens None Drains Prevena drain forearm Anesthesia GLMA Complication(s) None Disposition Recovery Room / PACU
[2016-12-18] MEDS ORDERED: ALBUT/IPRATROP 3MG/0.5MG NEB 3 ML VIAL INH PRN (20:15)
[2016-12-18] MEDS: HYDROmorphone INJ 1 MG/ML SYR IV PRN ×3 (20:15→20:25)
--- NOTE | 2016-12-18 20:35 | Anesthesiology Progress Note ---
Anesthesia Post Op Note Date & Time Dec 18, 2016 at 20:34 Vital Signs Pain Intensity: 5 Vital Signs Past 12 Hours Date Time Temp Pulse Resp B/P Pulse Ox O2 Delivery O2 Flow Rate FiO2 12/18/16 20:20 78 20 147/83 98 Nasal Cannula 3 12/18/16 20:14 79 16 98 Diffusion Mask 10.0 12/18/16 20:10 76 20 133/85 98 Mask 10 12/18/16 20:00 92 20 128/86 98 Mask 10 12/18/16 19:56 36.3 90 20 139/86 98 Mask 10 12/18/16 15:17 36.6 60 14 101/62 97 Room Air Notes Mental Status: alert / awake / arousable, participated in evaluation Pt Amnestic to Procedure: Yes Nausea / Vomiting: adequately controlled Pain: adequately controlled, improving with treatment Airway Patency, RR, SpO2: stable & adequate BP & HR: stable & adequate Hydration State: stable & adequate Anesthetic Complications: no major complications apparent Patient coughing postop so have nebulizer with excellent results. Pain improving with IV dilaudid. Ok for transfer back to floor.
--- NOTE | 2016-12-18 21:47 | DIAGNOSTIC IMAGING REPORT ---
LEFT FOREARM 2 VIEWS ROUTINE CLINICAL HISTORY: Postop study. Abscess. COMPARISON: None. DISCUSSION: 3 views are provided for interpretation. Multiple radiopaque granular opacities are visualized within the mid forearm, as well as adjacent to the olecranon. There is air within soft tissues. The findings may represent iatrogenically placed antibiotic pledgets. No fractures are visualized. IMPRESSION: Postsurgical changes. Electronically signed by: Anatoly Jacques M.D. 12/18/2016 9:45 PM Dictated Date/Time: 12/18/2016 9:43 PM
--- NOTE | 2016-12-18 21:58 | Infectious Disease Progress Nt ---
Progress Note Date of Service Dec 18, 2016. Subjective Pt evaluation today including: conversation w/ patient, physical exam, chart review, lab review, review of studies, conversation w/ territory sales consultant, review of inpatient medication list Patient is status post re-debridement with placement of antibiotic beads. Still with significant pain in his arm. Remains afebrile. Cultures growing strep, prevotella, and peptostreptococcus. Tolerating antibiotics without apparent difficulty. All Other Systems: Reviewed and Negative Medications Current Inpatient Medications Medications (Trade) Dose Ordered Sig/Onofre Route Start Time Stop Time Status Last Admin Dose Admin Oxycodone HCl (Roxicodone Immediate Rel Tab) 1-2 TABS FOR PAIN 1 TABLET ... Q4H PRN PO 12/11/16 23:00 12/25/16 22:59 12/18/16 20:58 10 MG Magnesium Hydroxide (Milk Of Magnesia Susp) 30 ml Q6H PRN PO 12/11/16 23:00 01/10/17 22:59 Docusate Sodium (coLACE CAP) 100 mg BID PO 12/12/16 09:00 01/11/17 08:59 12/18/16 08:59 100 MG Diphenhydramine HCl (Benadryl Inj) 25 mg Q8H PRN IV 12/11/16 23:00 01/10/17 22:59 12/17/16 00:02 25 MG Al Hydrox/Mg Hydrox/Simethicone (Maalox Max Susp) 15 ml Q4H PRN PO 12/11/16 23:00 01/10/17 22:59 Zolpidem Tartrate (Ambien Tab) 5 mg HSZ PRN PO 12/11/16 23:00 01/10/17 22:59 Multivitamins 1 tab 1 tab QAM PO 12/12/16 09:00 01/11/17 08:59 12/18/16 08:59 1 TAB Ceftaroline Fosamil/Sodium Chloride (Teflaro Inj/Nss 250ml) 270 ml @ 250 mls/hr Q12@0900,2100 IV 12/12/16 10:00 12/22/16 09:59 12/18/16 08:59 250 MLS/HR Aspirin 81 mg 81 mg QAM PO 12/12/16 11:00 01/11/17 10:59 12/17/16 08:16 81 MG Sodium Chloride (Nss 1000ml) 1,000 ml @ 75 mls/hr [id number] IV 12/12/16 14:00 01/11/17 13:59 12/18/16 15:24 75 MLS/HR Tramadol HCl (Ultram Tab) `1-2 tabs for pain 1 tab ... Q4H PRN PO 12/12/16 14:30 01/11/17 14:29 12/17/16 08:24 100 MG Acetaminophen (Tylenol Tab) 1,000 mg Q8 PO 12/12/16 22:00 01/11/17 21:59 12/18/16 13:51 1,000 MG Morphine Sulfate 2 mg 2 mg Q1HWA PRN IV 12/13/16 12:00 12/27/16 11:59 12/18/16 20:59 2 MG Metronidazole/Prmx (Flagyl / Nss/ Premixed Nss) 100 ml @ 100 mls/hr Q8H IV 12/16/16 12:00 12/26/16 11:59 12/18/16 21:05 100 MLS/HR Fentanyl Citrate (Fentanyl Inj) 25 mcg Q5M PRN IV 12/18/16 17:00 12/18/16 22:00 12/18/16 20:15 25 MCG Hydromorphone HCl (Dilaudid Inj) 0.25 mg Q5M PRN IV 12/18/16 17:00 12/18/16 22:00 12/18/16 20:25 1.5 MG Ondansetron HCl (Zofran Inj) 4 mg ONE PRN IV 12/18/16 17:00 12/18/16 22:00 Ephedrine Sulfate (EpHEDrine SULFATE INJ) 5 mg Q5M PRN IV 12/18/16 17:00 12/18/16 22:00 Atropine Sulfate (Atropine Sulfate 0.1MG/Ml Inj) 0.5 mg Q1M PRN IV 12/18/16 17:00 12/18/16 22:00 Albuterol/ Ipratropium (Duoneb) 3 ml ONE PRN INH 12/18/16 20:15 12/19/16 01:15 12/18/16 20:14 3 ML Objective Vital Signs Date Time Temp Pulse Resp B/P Pulse Ox O2 Delivery O2 Flow Rate FiO2 2/1/17 20:40 71 16 145/87 97 Nasal Cannula 3 12/18/16 20:30 36.4 71 26 134/85 97 Nasal Cannula 3 12/18/16 20:20 78 20 147/83 98 Nasal Cannula 3 12/18/16 20:14 79 16 98 Diffusion Mask 10.0 12/18/16 20:10 76 20 133/85 98 Mask 10 12/18/16 20:00 92 20 128/86 98 Mask 10 12/18/16 19:56 36.3 90 20 139/86 98 Mask 10 12/18/16 15:17 36.6 60 14 101/62 97 Room Air 12/18/16 07:40 Room Air 12/18/16 07:34 36.9 59 19 105/65 98 Room Air 12/18/16 00:00 Room Air 12/17/16 22:46 36.8 61 17 114/67 97 Room Air Physical Exam General Appearance: WD/WN, no apparent distress Eyes: normal inspection, EOMI ENT: normal ENT inspection, pharynx normal Neck: supple, no adenopathy, trachea midline Respiratory/Chest: lungs clear, normal breath sounds, no respiratory distress Cardiovascular: regular rate, rhythm, no gallop, no JVD, no murmur Abdomen: normal bowel sounds, non tender, soft, no organomegaly Extremities: no pedal edema, no calf tenderness, normal capillary refill Neurologic/Psychiatric: alert, oriented x 3 Skin: normal color, no rash Lymphatic: no adenopathy Assessment and Plan Patient with necrotizing infection, abscess, and developing compartment syndrome of the left forearm along with septic left olecranon bursitis now s/p multiple I & D's. Initial surgical culture growing alpha strep and now also anaerobic GNB. He is currently on IV Teflaro and IV Flagyl as well to cover anaerobes. He likely will need continued IV antibiotic therapy even post- discharge. Will probably change to IV Ceftriaxone plus PO Flagyl prior to discharge, but will continue current therapy pending final cultures, Plan: 1. Continue Teflaro and Flagyl
[2016-12-18] MEDS: TRAMADOL HCL 50 MG TAB PO PRN (22:14)
--- NOTE | 2016-12-19 00:13 | SURGICAL CONSULTATION ---
DATE OF CONSULTATION: 12/18/2016 ATTENDING PHYSICIAN: Dr. Gene Castillo. REASON FOR CONSULTATION: Evaluate for possible antibiotic bead placement. HISTORY OF PRESENT ILLNESS: This is a 26-year-old male who is actually healthy, who was out in [place] vacationing with his and 2 small children when he noticed a small area of redness on the volar aspect of his mid forearm. This worsened, he had fever and chills and was noted to have a questionable superficial cellulitis. He was seen in the ER and discharged after receiving parenteral antibiotics and prescription for Bactrim and Keflex. He worsened and had evidence of an early compartment syndrome and was taken to the operating room urgently and had necrotizing fasciitis and necrosis. He was treated with antibiotics and he had improved, but he is still having pain and tingling in his arm. He does not recall any type of injury. He has had no history of IV drug abuse. There is no insect bite. PAST MEDICAL HISTORY: 1. Depression. 2. Lifetime nonsmoker. PAST SURGICAL HISTORY: 1. Extraction of wisdom teeth. 2. Repeated incision and drainage of his forearm. ALLERGIES: No known drug allergies. MEDICATIONS: None before this incident. SOCIAL HISTORY: The patient states he is ; however, he also states that he lives alone. His father is very supportive. He has 1-year-old and 3-year-old children. He has never smoked cigarettes. 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 FAMILY MEDICAL HISTORY: His parents are still quite young and he states that he is unaware of any major medical conditions. His children are healthy. REVIEW OF SYSTEMS: He had no weight loss. He did travel to [place] but has had no international travel. He denies any IV drug use. Denies any trauma to his forearm during work. He has had no GI or symptoms. He has had no weight loss, no night sweats, no productive cough. Denies chest pain or palpitations. He has had no other skin breakdown other than that noted in the history of present illness. PHYSICAL EXAMINATION: GENERAL: This is a well-developed, well-nourished male who appears his stated age of 26. He stands 6 feet 3 inches tall and weighs 180 pounds. HEENT: Extraocular movements are intact. Pupils are equally round and reactive. His sclerae are anicteric. He has no obvious oral mucosal lesions. I detect no oral candidiasis. His tongue is midline. NECK: Supple. He has no supraclavicular or cervical lymphadenopathy or neck vein distention. He has no axillary adenopathy. LUNGS: Clear. HEART: He has a regular rate and rhythm of his heart. ABDOMEN: Soft, nontender. EXTREMITIES: He has no peripheral edema. He has excellent peripheral pulses. He does have a small area on his distal right foot which appears to have been the site of some scratching, but no evidence of abscess. NEUROLOGIC: He is completely awake and alert. I unwrapped his arm and he does have an incision which is partially closed on the volar aspect of his left mid forearm and also has skin clips holding an olecranon area incision which is longitudinal, closed. There is very little in the way of erythema. He does have what appears to be purulent drainage from both on the dressings, however. ASSESSMENT AND PLAN: Recurrent abscess with apparent fasciitis of his left volar forearm and left olecranon process. Dr. Castillo is planning on taking this patient back for another washout due to the purulence. As I have had experience with pharmaceutical calcium sulfate, Dr Castillo has asked me to assist. We will comply. I had a long talk with the patient about this. Thank you very much. GIUSEPPE
[2016-12-19] MEDS: MoRPHine SULFATE 2 MG/ML CARP IV PRN ×2 (00:36→03:05)
--- NOTE | 2016-12-19 01:49 | OPERATIVE REPORT ---
DATE OF OPERATION: 12/18/2016 PREOPERATIVE DIAGNOSES: 1. Abscess, left forearm. 2. Fasciitis of the forearm. 3. Abscess, elbow. 4. Local muscle necrosis of the brachioradialis, open incision forearm 11.5 cm. PROCEDURE: 1. Repeat left upper extremity forearm irrigation and debridement with primary closure over Stimulan antibiotic beads. 2. Subtotal fasciectomy of the forearm. 3. Debridement of the brachioradialis muscle. 4. Application Prevena drain to the forearm. 5. Repeat irrigation and debridement with primary closure of the elbow over Stimulan antibiotic beads. SURGEON: Dr. Castillo. COLLATERAL SPECIALIST: Virgilio Marie MD, who was present for positioning, sterile prep and drape, incision, assistance with retraction and debridement of tissue, placement of antibiotic beads, irrigation, wound closure. ANESTHESIA: General LMA. SPECIMENS: None. Note, specimens taken on 2 other occasions. DRAINS: Prevena drain, left forearm incision. COMPLICATIONS: None. BLOOD LOSS: 20 mL PERTINENT HISTORY: This is a 26-year-old who had developed an abscess in left forearm, had several other incision and drainage, irrigation and debridement, with multiple attempts with drains and iodoform packing with continued IV antibiotics. Continued to have purulent discharge and open incision in the left forearm and purulence also noted in the left elbow closure. The patient was then scheduled for repeat irrigation and debridement with primary closure as indicated. All potential risks, benefits, complications, alternatives, rehab, potential for incomplete relief of symptoms, need for further surgery, DVT, PE, , persistent pain, swelling, scarring, weakness, neurovascular injury, loss of function, weakness, wound complications up to and including amputation were discussed with the patient. The patient decided to proceed with the procedure as indicated. PROCEDURE IN DETAIL: The patient was taken to the operative suite, placed supine on the operating room table. After review of the consent and identification of proper operative site, the patient was anesthetized, LMA was placed. Tourniquet was placed high on the left upper extremity over cast padding. Left upper extremity had the Vesseloops temporizing wound closure removed from the left forearm, skin clips removed from left forearm, and sutures removed from the left elbow. Purulent discharge was noted in the left forearm and the left elbow. Next, the left upper extremity was then sterilely prepped and draped in usual fashion. The limb was elevated and the pneumatic tourniquet was inflated to 250 mmHg. There was no exsanguination performed due to the nature of the infection. There was no culture obtained because there were 2 other cultures obtained on prior procedures with positive identification of the bacterial species present. The left forearm incision was noted to be approximately 11.5 cm in length, elbow incision was approximately 6 cm in length. The forearm was addressed first with evacuation of any obvious purulent abscess fluid and debridement with a rongeur and curette of the soft tissue including the fascia and subcutaneous fat. There was noted to be pseudomembranous tissue overlying the fascia. Therefore, a subtotal fasciectomy was performed in the left forearm with a rongeur, forceps, and Metzenbaum scissors. This included the flexor compartment, the extensor compartment, and the mobile wad. The brachioradialis was noted to have local muscle necrosis along its radial and volar border. This was debrided with Metzenbaum scissors and forceps and rongeur. The remainder of the brachioradialis was left intact as there was contractility of it with minor electrocautery. After debridement was completed in the forearm, attention was then directed toward the elbow. There was pseudomembranous tissue overlying the fascia. This was removed with healthy fascia beneath. Decision was made to retain the fascia in the elbow. The subcutaneous fat was also debrided with a curette and rongeur. After all questionable or necrotic-appearing tissue was resected, pulsatile lavage 6 liters with bacitracin added was used to cleanse the left forearm incision and the left elbow incision until clear. Next, new top gloves and top sheet were placed on the field, and Stimulan antibiotic beads mixed with vancomycin powder and gentamicin liquid was prepared with the bead packets provided, one 10 mL, one 5 mL. Next, after bead preparation was completed, the completed Stimulan beads were then placed, first into the forearm wound and the forearm incision was then closed primarily over the Stimulan beads using interrupted horizontal and vertical 2-0 nylon mattress sutures. Next, attention was then directed toward the elbow and Stimulan beads were then placed into the soft tissues of the elbow, taking care to provide a consistent layer of beads throughout the space in the elbow. Incision was then closed using interrupted vertical and horizontal mattress 2-0 nylon sutures. The forearm was noted to be supple, no fluctuance, and there was noted to be no undue tissue tension at the suture line of the forearm or of the elbow. Next, after preparation of the skin of the forearm, a Prevena suction drain was applied to the incision line of the forearm. It was felt necessary to perform external wound drainage due to the copious amounts of abscess fluid which had been noted on the 3 prior debridements of the forearm. This was not case with the elbow and further drainage of the elbow was not indicated. Next, a sterile compressive dressing was applied to the left forearm and elbow, overwrapped with an Merlin wrap. Tourniquet was released. The patient was awakened and taken to recovery in stable condition. I attest to the content of the Intraoperative Record and any orders documented therein. Any exceptio ns are noted below.
[2016-12-19 02:58] VITALS: BP 113/67; PULSE 72; TEMP 36.7; O2SAT 95
[2016-12-19] MEDS: METRONIDAZOLE / NSS 500 MG in PREMIXED NSS 100 ML IV SCH ×3 (04:19→19:48)
[2016-12-19] MEDS: SODIUM CHLORIDE 0.9% 1000ML 1,000 ML IV SCH ×2 (05:43→19:48)
[2016-12-19] MEDS: ACETAMINOPHEN 500 MG TAB PO SCH ×3 (05:44→21:58)
[2016-12-19 06:59] VITALS: BP 105/66; PULSE 60; TEMP 36.5; O2SAT 95
--- NOTE | 2016-12-19 07:38 | Orthopedic Progress Note ---
Orthopedic Progress Note Date of Service Dec 19, 2016. Subjective Post OP Day: 1 Reports: complaints (Main complaint is pain not being controlled.), Denies: pain controlled w PO medications Objective N/V intact, dressing C/D/I, A&O x3 Patient is alert but sleeping this AM. Fingers mobile LUE. Prevena dressing in place and functioning. Lying comfortably in bed. Date Time Temp Pulse Resp B/P Pulse Ox O2 Delivery O2 Flow Rate FiO2 12/19/16 06:59 36.5 60 20 105/66 95 Room Air 12/19/16 02:58 36.7 72 17 113/67 95 Room Air 12/19/16 00:42 Room Air 12/18/16 22:50 36.4 67 17 125/75 92 Room Air 12/18/16 21:50 36.5 78 16 127/75 99 Nasal Cannula 2.0 12/18/16 21:20 36.5 74 16 129/78 96 Nasal Cannula 2.0 12/18/16 20:55 94 Nasal Cannula 2.0 12/18/16 20:55 Nasal Cannula 2.0 12/18/16 20:50 36.3 71 14 131/80 94 Nasal Cannula 2.0 12/18/16 20:40 71 16 145/87 97 Nasal Cannula 3 12/18/16 20:30 36.4 71 26 134/85 97 Nasal Cannula 3 12/18/16 20:20 78 20 147/83 98 Nasal Cannula 3 12/18/16 20:14 79 16 98 Diffusion Mask 10.0 12/18/16 20:10 76 20 133/85 98 Mask 10 12/18/16 20:00 92 20 128/86 98 Mask 10 12/18/16 19:56 36.3 90 20 139/86 98 Mask 10 12/18/16 15:17 36.6 60 14 101/62 97 Room Air 12/18/16 07:40 Room Air Assessment & Plan Assessment: POD #1 s/p 1. Repeat left upper extremity forearm irrigation and debridement with primary closure over Stimulan antibiotic beads. 2. Subtotal fasciectomy of the forearm. 3. Debridement of the brachioradialis muscle. 4. Application Prevena drain to the forearm. 5. Repeat irrigation and debridement with primary closure of the elbow over Stimulan antibiotic beads s/p 1. Irrigation and debridement, left forearm. 2. Irrigation and debridement, left elbow. s/p 1. Incision and drainage left volar forearm abscess. 2. Debridement fascia. 3. Debridement muscle brachioradialis s/p repeat I and D forearm with olecranon bursectomy . Plan: Dressing kept in place. Order PICC line for placement for IV ABX therapy. Consent for PICC line signed by patient. D/C planning. Continue IV Teflaro. Inhouse Planning Pain Management: Oxycontin, Morphine (Will d/c tomorrow AM to try to get patient to PO medications only in preparation for d/c.), PO Tylenol, Oxy IR Discharge Planning Discharge Planning: uncertain
[2016-12-19] MEDS: OXYCODONE HCL IR 5 MG TAB (IMMEDIATE RELEASE) PO PRN ×4 (07:39→21:59)
--- NOTE | 2016-12-19 09:18 | SURGERY PROGRESS NOTE ---
DATE: 12/19/2016 Mr. Frazier is seen today [address] Castillo performed an irrigation with debridement of the volar forearm, as well as the olecranon area, with primary closure over pharmaceutical grade calcium sulfate reconstituted with vancomycin and gentamicin. Really looks quite good. I took down his outer dressings, but left the incisional dressing and wound VAC on. His arm is much softer. He has really very little in the way of edema. I replaced the wrap. He states he is still having pain, but I think he looks quite good. He has got good flexion and extension of his fingers.
[2016-12-19] MEDS: ASPIRIN 81 MG ECTAB PO SCH (09:35)
[2016-12-19] MEDS: OXYCODONE HCL 10 MG TABCR (OXYCONTIN) PO SCH ×2 (09:35→21:15)
[2016-12-19] MEDS: MULTIVITAMIN TAB PO SCH (09:35)
[2016-12-19] MEDS: DOCUSATE SODIUM 100 MG CAP PO SCH ×2 (09:35→21:12)
--- NOTE | 2016-12-19 09:57 | Anesthesiology Progress Note ---
Anesthesia Post Op Note Date & Time Dec 19, 2016 at 09:57 Vital Signs Pain Intensity: 8.0 Vital Signs Past 12 Hours Date Time Temp Pulse Resp B/P Pulse Ox O2 Delivery O2 Flow Rate FiO2 12/19/16 07:45 Room Air 12/19/16 06:59 36.5 60 20 105/66 95 Room Air 12/19/16 02:58 36.7 72 17 113/67 95 Room Air 12/19/16 00:42 Room Air 12/18/16 22:50 36.4 67 17 125/75 92 Room Air Notes Mental Status: alert / awake / arousable, participated in evaluation Pt Amnestic to Procedure: Yes Nausea / Vomiting: adequately controlled Pain: adequately controlled Airway Patency, RR, SpO2: stable & adequate BP & HR: stable & adequate Hydration State: stable & adequate Anesthetic Complications: no major complications apparent
[2016-12-19] MEDS: CEFTAROLINE FOSAMIL INJ 600 MG in SODIUM CHLORIDE 0.9% 250ML 250 ML IV SCH ×2 (10:44→21:12)
[2016-12-19] MEDS: TRAMADOL HCL 50 MG TAB PO PRN ×3 (10:44→23:58)
[2016-12-19 10:55] VITALS: BP 114/71; PULSE 56; TEMP 36.7; O2SAT 96
[2016-12-19 15:01] VITALS: BP 116/72; PULSE 62; TEMP 36.6; O2SAT 94
--- NOTE | 2016-12-19 19:36 | Infectious Disease Progress Nt ---
Progress Note Date of Service Dec 19, 2016. Subjective Pt evaluation today including: conversation w/ patient, physical exam, chart review, lab review, review of studies, conversation w/ [facility] consultant, review of inpatient medication list Patient relatively comfortable, offers no new complaints today. Tolerating antibiotics. Remains afebrile and hemodynamically stable. All Other Systems: Reviewed and Negative Medications Current Inpatient Medications Medications (Trade) Dose Ordered Sig/Onofre Route Start Time Stop Time Status Last Admin Dose Admin Oxycodone HCl (Roxicodone Immediate Rel Tab) 1-2 TABS FOR PAIN 1 TABLET ... Q4H PRN PO 12/11/16 23:00 12/25/16 22:59 12/19/16 18:02 10 MG Magnesium Hydroxide (Milk Of Magnesia Susp) 30 ml Q6H PRN PO 12/11/16 23:00 01/10/17 22:59 Docusate Sodium (coLACE CAP) 100 mg BID PO 12/12/16 09:00 01/11/17 08:59 12/19/16 09:35 100 MG Diphenhydramine HCl (Benadryl Inj) 25 mg Q8H PRN IV 12/11/16 23:00 01/10/17 22:59 12/17/16 00:02 25 MG Al Hydrox/Mg Hydrox/Simethicone (Maalox Max Susp) 15 ml Q4H PRN PO 12/11/16 23:00 01/10/17 22:59 Zolpidem Tartrate (Ambien Tab) 5 mg HSZ PRN PO 12/11/16 23:00 01/10/17 22:59 Multivitamins 1 tab 1 tab QAM PO 12/12/16 09:00 01/11/17 08:59 12/19/16 09:35 1 TAB Ceftaroline Fosamil/Sodium Chloride (Teflaro Inj/Nss 250ml) 270 ml @ 250 mls/hr Q12@0900,2100 IV 12/12/16 10:00 12/22/16 09:59 12/19/16 10:44 250 MLS/HR Aspirin 81 mg 81 mg QAM PO 12/12/16 11:00 01/11/17 10:59 12/19/16 09:35 81 MG Sodium Chloride (Nss 1000ml) 1,000 ml @ 75 mls/hr [id number] IV 12/12/16 14:00 01/11/17 13:59 12/19/16 05:43 75 MLS/HR Tramadol HCl (Ultram Tab) `1-2 tabs for pain 1 tab ... Q4H PRN PO 12/12/16 14:30 01/11/17 14:29 12/19/16 10:44 100 MG Acetaminophen (Tylenol Tab) 1,000 mg Q8 PO 12/12/16 22:00 01/11/17 21:59 12/19/16 13:29 1,000 MG Morphine Sulfate 2 mg 2 mg Q1HWA PRN IV 12/13/16 12:00 12/20/16 06:00 12/19/16 03:05 2 MG Metronidazole/Prmx (Flagyl / Nss/ Premixed Nss) 100 ml @ 100 mls/hr Q8H IV 12/16/16 12:00 12/26/16 11:59 12/19/16 13:29 100 MLS/HR Oxycodone HCl (Oxycontin Tab) 10 mg Q12 PO 12/19/16 07:45 01/02/17 07:44 12/19/16 09:35 10 MG Heparin Sodium (Porcine) (Heparin 10 Unit/ ml 5 ml Flush) 5 ml PRN PRN FLUSH 12/19/16 11:00 01/18/17 10:59 Objective Vital Signs Date Time Temp Pulse Resp B/P Pulse Ox O2 Delivery O2 Flow Rate FiO2 12/19/16 17:45 Room Air 12/19/16 15:01 36.6 62 16 116/72 94 Room Air 12/19/16 11:53 Room Air 12/19/16 10:55 36.7 56 16 114/71 96 Room Air 12/19/16 07:45 Room Air 12/19/16 06:59 36.5 60 20 105/66 95 Room Air 12/19/16 02:58 36.7 72 17 113/67 95 Room Air 12/19/16 00:42 Room Air 12/18/16 22:50 36.4 67 17 125/75 92 Room Air 12/18/16 21:50 36.5 78 16 127/75 99 Nasal Cannula 2.0 12/18/16 21:20 36.5 74 16 129/78 96 Nasal Cannula 2.0 12/18/16 20:55 94 Nasal Cannula 2.0 12/18/16 20:55 Nasal Cannula 2.0 12/18/16 20:50 36.3 71 14 131/80 94 Nasal Cannula 2.0 12/18/16 20:40 71 16 145/87 97 Nasal Cannula 3 12/18/16 20:30 36.4 71 26 134/85 97 Nasal Cannula 3 12/18/16 20:20 78 20 147/83 98 Nasal Cannula 3 12/18/16 20:14 79 16 98 Diffusion Mask 10.0 12/18/16 20:10 76 20 133/85 98 Mask 10 12/18/16 20:00 92 20 128/86 98 Mask 10 12/18/16 19:56 36.3 90 20 139/86 98 Mask 10 Physical Exam General Appearance: WD/WN, no apparent distress Eyes: normal inspection, EOMI, sclerae normal ENT: normal ENT inspection, pharynx normal Neck: supple, no adenopathy, trachea midline Respiratory/Chest: lungs clear, normal breath sounds, no respiratory distress Cardiovascular: regular rate, rhythm, no gallop, no murmur Abdomen: normal bowel sounds, non tender, soft, no organomegaly Extremities: no calf tenderness, normal capillary refill Neurologic/Psychiatric: alert, oriented x 3 Skin: normal color, no rash, + pertinent finding ( Surgical dressing intact) Lymphatic: no adenopathy Laboratory Results RUN DATE: 12/18/16 [facility] LAB PAGE 1 RUN TIME: 1448 Specimen Inquiry PATIENT: MANASA MAURER LOC: [place] U # : [id number] AGE/SX: 26/M ROOM: [facility] REG : 12/11/[address]: Gene Castillo D.O. : 1990 BED: 1 DIS : STATUS: ADM IN TLOC: SPEC #: [id number] [place]: 12/11/16 STATUS: COMP REQ #: [id number] RECD: 12/11/16 [facility] DR: Tanmay Theodore M.D. SOURCE: ABSCESS ENTR: 12/11/[address] [facility] [address]: Gene Castillo [facility] Liborio WHEELER Evan T MD Burke, P Brian, M.D. (MEDICAL) ORDERED: AER/ELO CULTSMR Procedure Result Verified Site GRAM STAIN Final 12/12/16 RESULT MANY WBCs SEEN MANY GRAM POSITIVE COCCI FEW GRAM POSITIVE BACILLI OR AER/ELO CULT Final 12/18/16 Organism 1 ALPHA STREP. NOT ENTEROCOCCUS QUANITY MODERATE SENS NO SENSITIVITY TO FOLLOW Organism 2 PREVOTELLA MELANINOGENICA QUANITY MODERATE SENS NO SENSITIVITY TO FOLLOW Organism 3 PEPTOSTREPTOCOCCUS SPECIES QUANITY MODERATE SENS NO SENSITIVITY TO FOLLOW Assessment and Plan Patient with necrotizing infection, abscess, and developing compartment syndrome of the left forearm along with septic left olecranon bursitis now s/p multiple I & D's. Initial surgical culture growing alpha strep and now also anaerobic GNB. He is currently on IV Teflaro and IV Flagyl as well to cover anaerobes. He likely will need continued IV antibiotic therapy even post- discharge. Will probably change to IV Ceftriaxone plus PO Flagyl prior to discharge, but will continue current therapy pending final cultures, Plan: 1. Continue Teflaro and Flagyl
[2016-12-19 23:20] VITALS: BP 104/65; PULSE 57; TEMP 36.5; O2SAT 97
[2016-12-20] MEDS: MoRPHine SULFATE 2 MG/ML CARP IV PRN (00:56)
[2016-12-20] MEDS: OXYCODONE HCL IR 5 MG TAB (IMMEDIATE RELEASE) PO PRN ×4 (02:19→16:51)
[2016-12-20] MEDS: METRONIDAZOLE / NSS 500 MG in PREMIXED NSS 100 ML IV SCH ×2 (04:57→12:09)
[2016-12-20] MEDS: ACETAMINOPHEN 500 MG TAB PO SCH ×2 (06:02→13:39)
[2016-12-20] MEDS: ASPIRIN 81 MG ECTAB PO SCH (08:07)
[2016-12-20] MEDS: DOCUSATE SODIUM 100 MG CAP PO SCH (08:07)
[2016-12-20] MEDS: MULTIVITAMIN TAB PO SCH (08:07)
[2016-12-20] MEDS: SODIUM CHLORIDE 0.9% 1000ML 1,000 ML IV SCH (08:07)
[2016-12-20] MEDS: CEFTAROLINE FOSAMIL INJ 600 MG in SODIUM CHLORIDE 0.9% 250ML 250 ML IV SCH (08:14)
[2016-12-20] MEDS: OXYCODONE HCL 10 MG TABCR (OXYCONTIN) PO SCH (08:20)
--- NOTE | 2016-12-20 08:50 | Orthopedic Progress Note ---
Orthopedic Progress Note Date of Service Dec 20, 2016. Subjective Post OP Day: 2 Reports: feeling well, Denies: SOB, calf pain, chest pain, light headedness, nausea / vomiting Additional Notes: COMPLAINING OF PAIN, 8-9/10. APPEARS FAIRLY COMFORTABLE IN BED. HAVING DIFFICULTY FINDING A COMFORTABLE POSITION MORE THAN ANYTHING. Objective calves soft nontender, N/V intact, dressing C/D/I, A&O x3, toes mobile Date Time Temp Pulse Resp B/P Pulse Ox O2 Delivery O2 Flow Rate FiO2 12/19/16 23:20 36.5 57 17 104/65 97 Room Air 12/19/16 17:45 Room Air 12/19/16 15:01 36.6 62 16 116/72 94 Room Air 12/19/16 11:53 Room Air 12/19/16 10:55 36.7 56 16 114/71 96 Room Air Assessment & Plan Assessment: POD #2 s/p 1. Repeat left upper extremity forearm irrigation and debridement with primary closure over Stimulan antibiotic beads. 2. Subtotal fasciectomy of the forearm. 3. Debridement of the brachioradialis muscle. 4. Application Prevena drain to the forearm. 5. Repeat irrigation and debridement with primary closure of the elbow over Stimulan antibiotic beads s/p 1. Irrigation and debridement, left forearm. 2. Irrigation and debridement, left elbow. s/p 1. Incision and drainage left volar forearm abscess. 2. Debridement fascia. 3. Debridement muscle brachioradialis s/p repeat I and D forearm with olecranon bursectomy . Plan: Dressing kept in place. PICC LINE IN PLACE WORK ON PAIN CONTROL POSSIBLE DC LATER TODAY IF IV ABX FINALIZED. PATIENT HAS HOME COVERAGE, JUST WAITING ON RX. WILL NEED TO CHECK WITH DR. SMALLWOOD FOR FINAL RECOMMENDATIONS. Inhouse Planning Pain Management: Oxycontin, Morphine (Will d/c tomorrow AM to try to get patient to PO medications only in preparation for d/c.), PO Tylenol, Oxy IR Discharge Planning Discharge Planning: uncertain
--- NOTE | 2016-12-20 08:54 | Discharge Instructions ---
Discharge Instructions Admission Reason for Admission: Abscess Of Forearm Left Discharge Discharge Diagnosis / Problem: SP I&D FOREARM Discharge Goals Goal(s): Decrease discomfort, Improve function, Increase independence Activity Recommendations Activity Limitations: per Instructions/Follow-up section . Instructions / Follow-Up Instructions / Follow-Up ACTIVITY RECOMMENDATIONS: SELF CARE INSTRUCTIONS C. Please keep your incision covered. You may shower 48 hours after surgery. Do not apply soap or any ointment/ lotions directly over incision. Do not soak incision in bath tub/swimming pool. D. You may use ice as needed to operative shoulder. SPECIAL CARE INSTRUCTIONS: VERY IMPORTANT TO READ AND REVIEW A. There are a few signs you need to watch for after you are home. Call [facility] at [phone] if you experience any of the followin. Increased severe pain. Some pain is expected especially when you exercise. 2. Increased swelling in your arm; pain or swelling in either upper extremity. 3. Any fluid drainage from the incision. 4. Shortness of breath or chest pain. B. Please call [facility] at [phone] if you have any questions or concerns about your operation or recovery. C. Call your physician if: 1. Temperature is greater than 101 degrees (F). 2. Pain is not relieved by prescribed pain medications. 3. Increase drainage or redness from incision. 4. Unanswered questions or concerns. FOLLOW UP VISIT: Please call [facility] at [phone] to schedule a follow up appointment with or his PA in 10-14 days from your surgery date. CONTINUE IV ANTIBIOTICS PRESCRIBED. PREVENA WOUND VAC CARE PER HOME NURSING. Current Hospital Diet Patient's current hospital diet: Regular Diet Discharge Diet Recommended Diet: Regular Diet Procedures Procedures Performed: Repeat Left Upper Extremity Forearm Irrigation and Debridement 11cm wound with Primary Closure over Stimulan Antibiotic Beads; Subtotal Fasciectomy Forearm; Debridement Brachioradialis Muscle; Application Prevena Drain Forearm; Repeat Irrigation and Debridement Left Elbow with Primary Closure over Stimulan Antibiotic Beads Pending Studies Studies pending at discharge: no Medical Emergencies . Who to Call and When: Medical Emergencies: If at any time you feel your situation is an emergency, please call 911 immediately. . Non-Emergent Contact Non-Emergency issues call your: Primary Care Provider . "Provider Documentation" section prepared by Lilian Ramirez. VTE Core Measure Inpt VTE Proph given/why not?: Other Anticoagulation, T.E.D. Stockings, SCD's
[2016-12-20] MEDS ORDERED: ASPEC81 PO (08:59)
[2016-12-20] MEDS ORDERED: OXYSR10 PO (08:59)
[2016-12-20] MEDS ORDERED: RXC5 PO (08:59)
[2016-12-20] MEDS ORDERED: ACET-1138 PO (08:59)
[2016-12-20 11:45] VITALS: BP 133/89; PULSE 84; TEMP 36.7; O2SAT 98
--- NOTE | 2016-12-20 14:48 | Infectious Disease Progress Nt ---
Progress Note Date of Service Dec 20, 2016. Subjective Pt evaluation today including: conversation w/ patient, physical exam, chart review, lab review, review of studies, conversation w/ lactation consultant, review of inpatient medication list pain better controlled today. Remains afebrile. Tolerating antibiotics without apparent difficulty. Anticipating discharge. All Other Systems: Reviewed and Negative Medications Current Inpatient Medications Medications (Trade) Dose Ordered Sig/Onofre Route Start Time Stop Time Status Last Admin Dose Admin Oxycodone HCl (Roxicodone Immediate Rel Tab) 1-2 TABS FOR PAIN 1 TABLET ... Q4H PRN PO 12/11/16 23:00 12/25/16 22:59 12/20/16 12:09 10 MG Magnesium Hydroxide (Milk Of Magnesia Susp) 30 ml Q6H PRN PO 12/11/16 23:00 01/10/17 22:59 Docusate Sodium (coLACE CAP) 100 mg BID PO 12/12/16 09:00 01/11/17 08:59 12/20/16 08:07 100 MG Diphenhydramine HCl (Benadryl Inj) 25 mg Q8H PRN IV 12/11/16 23:00 01/10/17 22:59 12/17/16 00:02 25 MG Al Hydrox/Mg Hydrox/Simethicone (Maalox Max Susp) 15 ml Q4H PRN PO 12/11/16 23:00 01/10/17 22:59 Zolpidem Tartrate (Ambien Tab) 5 mg HSZ PRN PO 12/11/16 23:00 01/10/17 22:59 Multivitamins (Multivitamin Tab) 1 tab QAM PO 12/12/16 09:00 01/11/17 08:59 12/20/16 08:07 1 TAB Aspirin 81 mg 81 mg QAM PO 12/12/16 11:00 01/11/17 10:59 12/20/16 08:07 81 MG Sodium Chloride (Nss 1000ml) 1,000 ml @ 75 mls/hr [id number] IV 12/12/16 14:00 01/11/17 13:59 12/20/16 08:07 75 MLS/HR Tramadol HCl (Ultram Tab) `1-2 tabs for pain 1 tab ... Q4H PRN PO 12/12/16 14:30 2/25/17 14:29 12/19/16 23:58 100 MG Acetaminophen 1000 mg 1,000 mg Q8 PO 12/12/16 22:00 01/11/17 21:59 12/20/16 13:39 1,000 MG Metronidazole/Prmx (Flagyl / Nss/ Premixed Nss) 100 ml @ 100 mls/hr Q8H IV 12/16/16 12:00 12/26/16 11:59 12/20/16 12:09 100 MLS/HR Oxycodone HCl (Oxycontin Tab) 10 mg Q12 PO 12/19/16 07:45 01/02/17 07:44 12/20/16 08:20 10 MG Heparin Sodium (Porcine) 5 ml 5 ml PRN PRN FLUSH 12/19/16 11:00 01/18/17 10:59 Ceftriaxone Sodium/Dextrose (Rocephin Inj/D5 50ml) 70 ml @ 100 mls/hr Q24H IV 12/20/16 14:45 12/30/16 14:44 UNV Objective Vital Signs Date Time Temp Pulse Resp B/P Pulse Ox O2 Delivery O2 Flow Rate FiO2 12/20/16 08:00 Room Air 12/19/16 23:20 36.5 57 17 104/65 97 Room Air 12/19/16 17:45 Room Air 12/19/16 15:01 36.6 62 16 116/72 94 Room Air Physical Exam General Appearance: WD/WN, no apparent distress Eyes: normal inspection, EOMI, sclerae normal ENT: normal ENT inspection, pharynx normal Neck: supple, trachea midline Respiratory/Chest: lungs clear, normal breath sounds, no respiratory distress Cardiovascular: regular rate, rhythm, no gallop, no murmur Abdomen: normal bowel sounds, non tender, soft, no organomegaly Extremities: non-tender, no calf tenderness Neurologic/Psychiatric: alert, oriented x 3 Skin: normal color, no rash Lymphatic: no adenopathy Assessment and Plan Patient with necrotizing infection, abscess, and developing compartment syndrome of the left forearm along with septic left olecranon bursitis now s/p multiple I & D's. Cultures with Strep, Prevotella, and Peptostreptococcus. Would give IV ceftriaxone 2 grams daily with oral Flagyl 500 tid for 2 weeks, assuming appropriate clinical response.
[2016-12-20 14:51] VITALS: BP 118/70; PULSE 58; TEMP 36.5; O2SAT 97
[2016-12-20] MEDS ORDERED: METR500T PO (14:57)
[2016-12-20] MEDS ORDERED: CEFT1INJ57 IV (14:57)
[2016-12-20] MEDS: TRAMADOL HCL 50 MG TAB PO PRN (15:43)
[2016-12-20] MEDS ORDERED: CEFTRIAXONE SOD INJ 2,000 MG in DEXTROSE 5% 50ML 50 ML IV SCH (16:00)
[2016-12-20 16:01] VITALS: BP 118/70; PULSE 58; TEMP 36.5; O2SAT 97
--- NOTE | 2016-12-20 17:07 | PROGRESS NOTE ---
DATE: 12/20/2016 Mr. Frazier was seen today. He is going home. He states his pain is remarkably better. He has less swelling in his hand, has good range of motion of his fingers and wrist joint. He has remained afebrile. Dr. Castillo is going to be seeing Mr. Frazier in the office; i would like to see him back 1 more time in 2 weeks for a final wound check. [id number]
--- NOTE | 2016-12-26 12:05 | Discharge Summary ---
Orthopedic Discharge Summary Admission Date/Reason Dec 11, 2016 at 23:08 Abscess Of Forearm Left. Discharge Date/Disposition Dec 20, 2016 Home with services Diagnosis Principal Diagnosis: left forearm abscess Secondary Diagnoses/Problems: left septic olecranon bursitis Procedure(s) Performed 12.11.16 I & D of the left forearm 1.. Repeat I & D left forearm and repeat I & D left olecranon 1.. Repeat I & D left forearm and repeat I & D left olecranon 2.1.17 Repeat I & D of the left forearm and repeat I & D left olecranon with closure of the wounds over Stimulan antibiotic beads. Consultations Medicine Infectious Disease Medication Reconciliation New Medications: Ceftriaxone Sod (Rocephin) 1 Gm Inj 2 GM IV DAILY for 14 Days, VIAL Metronidazole (Flagyl) 500 Mg Tab 1 TAB PO BID for 14 Days, #28 TAB Acetaminophen (Tylenol Extra Strength) 500 Mg Tab 1000 MG PO Q8 for 30 Days, #180 TAB Aspirin (Aspirin EC Low Dose) 81 Mg Ectab 81 MG PO QAM for 30 Days Oxycodone HCl (Oxycontin) 10 Mg Tabcr 10 MG PO Q12, #20 Oxycodone HCl (Oxycodone HCl) 5 Mg Tab 5-10 MG PO Q4H PRN for Pain, #60 TAB Discontinued Medications: Tramadol (Ultram) 50 Mg Tab 1-2 TAB PO Q4H PRN for Pain, #16 TAB For Initial Treatment Admission Physical Exam As per Admitting History & Physical. Hospital Course The patient was admitted on 12.11.16 through the ER for the left forearm abscess. The first procedure was done that evening. Throughout the stay, antibiotic choices were made based on the cultures from the first procedure. He had daily dressing changes for pulling of packing and re-evaluation for surgery. He subsequently had the above noted procedures performed. Throughout the stay, pain control was a goal and medicines were change as indicated. He was d/c'd home with home health once the final procedure was done and he had his PICC line in place. Discharge Instructions Please refer to the electronic Patient Visit Report (Discharge Instructions) for additional information.
[2017-01-06] MEDS ORDERED: LVNIS80 SQ (18:12)
[2017-01-06] MEDS ORDERED: CEPH-571 PO (18:12)
[2017-01-06] MEDS ORDERED: METR-163 PO (18:12)
[2017-01-06] MEDS ORDERED: OXYC-57 PO (18:12)
[2017-01-06] MEDS ORDERED: WARF5TAB90 PO (18:12)
== END 2016-12-20 17:00 | disposition home health service (06) | DRG 580 ==
LOC: ENRESERVTM → ENRESERVDT → C.EDB 18:05 → C.3E 23:08
PROVIDERS: ADMIT Orthopaedic Surgery Sports Medicine; ATTEND Orthopaedic Surgery Sports Medicine
PROC: 0KBB0ZZ Excision of Left Lower Arm and Wrist Muscle, Open Approach (ICD-10-PCS; principal; 2016-12-11 21:03)
PROC: 0J9H00Z Drainage of Left Lower Arm Subcutaneous Tissue and Fascia with Drainage Device, Open Approach (ICD-10-PCS; principal; 2016-12-11 21:03)
PROC: 0KBB0ZZ Excision of Left Lower Arm and Wrist Muscle, Open Approach (ICD-10-PCS; 2016-12-13 12:00)
PROC: 0JBH0ZX Excision of Left Lower Arm Subcutaneous Tissue and Fascia, Open Approach, Diagnostic (ICD-10-PCS; 2016-12-13 12:00)
PROC: 0MT40ZZ Resection of Left Elbow Bursa and Ligament, Open Approach (ICD-10-PCS; 2016-12-13 12:00)
PROC: 0MB40ZZ Excision of Left Elbow Bursa and Ligament, Open Approach (ICD-10-PCS; 2016-12-15)
PROC: 0M9 Bursae and Ligaments, Drainage (ICD-10-PCS; 2016-12-15)
PROC: 0J9H00Z Drainage of Left Lower Arm Subcutaneous Tissue and Fascia with Drainage Device, Open Approach (ICD-10-PCS; 2016-12-15)
PROC: 0J9H00Z Drainage of Left Lower Arm Subcutaneous Tissue and Fascia with Drainage Device, Open Approach (ICD-10-PCS; 2016-12-18)
PROC: 0M9 Bursae and Ligaments, Drainage (ICD-10-PCS; 2016-12-18)
PROC: 3E01329 Introduction of Other Anti-infective into Subcutaneous Tissue, Percutaneous Approach (ICD-10-PCS; 2016-12-18)
PROC: 3E0U029 Introduction of Other Anti-infective into Joints, Open Approach (ICD-10-PCS; 2016-12-18)
PROC: 0KBB0ZZ Excision of Left Lower Arm and Wrist Muscle, Open Approach (ICD-10-PCS; 2016-12-18)
PROC: 05HB33Z Insertion of Infusion Device into Right Basilic Vein, Percutaneous Approach (ICD-10-PCS; 2016-12-19)
DX: L02.414 Cutaneous abscess of left upper limb (principal); M79.A12 Nontraumatic compartment syndrome of left upper extremity; I82.612 Acute embolism and thrombosis of superficial veins of left upper extremity; B95.4 Other streptococcus as the cause of diseases classified elsewhere; L03.114 Cellulitis of left upper limb; M72.8 Other fibroblastic disorders; M62.89 Other specified disorders of muscle; M71.122 Other infective bursitis, left elbow

== ENCOUNTER 2016-12-31 09:08 | Emergency (ER) | payer OTHER ==
[~2016-12-31] VITALS: Ht 188 cm; Wt 82.2 kg
[~2016-12-31 09:08] MED LIST changes: +ACET-1138 PO; +ASPEC81 PO; +CEFT1INJ57 IV; -CEPH500C PO; +METR500T PO; +OXYSR10 PO; +RXC5 PO; -SULF800T23 PO; -TRAM-10 PO
[2016-12-31 09:14] VITALS: Ht 188 cm; Wt 82.2 kg
[2016-12-31] MEDS ORDERED: ONDANSETRON INJ 2 MG/ML 2 ML VIAL IV STA (09:35)
[2016-12-31] MEDS ORDERED: HYDROmorphone INJ 0.5 MG/0.5 ML SYR IV STA (09:35)
[2016-12-31] MEDS ORDERED: OPTIRAY 320 IV PRN (09:45)
[2016-12-31 09:53] LABS: BASO % 0.7 %; BASO ABS # 0.08 K/uL (0-0.2); COMPLETE YES; EOS % 2.2 %; HEMATOCRIT 35.7 % (42-52); IG% 0.2 %; LYMPH % 22.5 %; LYMPH ABS # 2.46 K/uL (1.2-3.4); MEAN CELL VOLUME 83.6 fL (80-100); MEAN CORPUSCULAR HEMOGLOBIN 28.3 pg (25-34); MEAN CORPUSCULAR HGB CONC 33.9 g/dl (32-36); MEAN PLATELET VOLUME 9.6 fL (7.4-10.4); MONO % 10.4 %; PLATELET COUNT 341 K/uL (130-400); RED BLOOD COUNT 4.27 M/uL (4.7-6.1); WHITE BLOOD COUNT 10.93 K/uL (4.8-10.8)
[2016-12-31 10:09] LABS: BUN/CREATININE RATIO 15.4 (10-20); CALCIUM 9.3 mg/dl (8.5-10.1); CREATININE 0.84 mg/dl (0.60-1.40); POTASSIUM 3.8 mmol/L (3.5-5.1)
[2016-12-31] MEDS ORDERED: SODIUM CHLORIDE 0.9% 1000ML 1,000 ML IV STA (10:42)
--- NOTE | 2016-12-31 11:26 | DIAGNOSTIC IMAGING REPORT ---
CT left arm LEFT UPPER EXTREMITY WITH CLINICAL HISTORY: eval for abscess/seroma collection. Abscess. TECHNIQUE: Transaxial acquisition with multi axial reformatted images COMPARISON STUDY: None FINDINGS: Peripherally enhancing collection/seroma adjacent to the radius. This appears to contain small radiopaque densities and/or debris. This extends a linear fashion overlying for 16 cm adjacent to the radius. Maximum cross-sectional measurements are approximately 2 cm. This primarily within the subcutaneous fat and extends radially about the forearm and distal radius for a transverse dimension of 5 x 2.5 cm. There is a second linear collection posterior to the elbow measuring 2.5 x 9 cm. This again contains radiopaque densities and/or debris. The muscular components of the forearm and distal arm are intact. Both collections appear to be primarily within the subcutaneous fat red no well-defined acute bony abnormality. IMPRESSION: 1. Large linear fluid pocket/abscess versus seroma with a peripherally enhancing rim extending throughout the bulk of the length of the forearm adjacent to the distal radius. 2. This extends and semicircular pattern within the subcutaneous fat and again contains radiopaque debris. 3. Second curvilinear collection posterior to the elbow again within the subcutaneous fat measuring 9 x 2.5 cm. This again potentially relates to seroma versus abscess and shows peripheral rim enhancement. This again contains radiopaque debris 4. No evidence for muscular or bony involvement at the current time, although a component of reactive muscular edema may be present. Electronically signed by: Ancelmo Reyes M.D. 12/31/2016 11:25 AM Dictated Date/Time: 12/31/2016 11:12 AM
[2016-12-31] MEDS ORDERED: OXYC1TAB3 PO (13:35)
[2016-12-31 13:48] VITALS: BP 131/82; PULSE 75; TEMP 36.7; O2SAT 99
--- NOTE | 2016-12-31 14:07 | EMERGENCY ROOM VISIT NOTE ---
History Report prepared by Tevin: Pipo Anne Under the Supervision of: Dr. Tanmay Theodore M.D. First contact with patient: 09:24 Chief Complaint: ARM PAIN Stated Complaint: SURG. X 2 WKS, PAIN History of Present Illness The patient is a 26 year old male who presents to the Emergency Room with complaints of constant pain and swelling in the left forearm that began last , 5 days prior to arrival. The patient had an incision and drainage performed on an abscess in the left forearm on December 13. The patient had a Wound-Vac placed on over the incision, which was removed last . Since the Wound-Vac was removed the area has become increasingly painful and swollen. There is no numbness or weakness in the left arm. The patient is taking Rocephin through a PICC line in his right upper extremity. He is currently not taking anything for pain since he ran out of his prescription of oxycodone. He denies any fever or vomiting. 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 A total of 10 systems reviewed and were otherwise negative. 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 Social History Smoking Status: Never Smoker Alcohol Use: occasionally Drug Use: none Marital Status: single Housing Status: lives alone Occupation Status: employed Current/Historical Medications Scheduled Ceftriaxone Sod (Rocephin), 2 GM IV DAILY Metronidazole (Flagyl), 1 TAB PO BID Scheduled PRN Oxycodone Ir (Roxicodone Ir), 5 MG PO Q4H PRN for Pain Allergies Coded Allergies: No Known Allergies (Unverified , NONE, 12/31/16) Physical Exam Vital Signs Date Time Temp Pulse Resp B/P Pulse Ox O2 Delivery O2 Flow Rate FiO2 12/31/16 13:48 36.7 75 18 131/82 99 12/31/16 11:55 65 18 103/61 98 Room Air 12/31/16 10:40 75 16 94/54 97 Room Air 12/31/16 09:14 37.1 90 20 119/73 99 Room Air Physical Exam Constitutional: Vital signs reviewed. Eyes: Pupils are equal round reactive to light. Conjunctiva are noninjected. ENT: Pharynx is clear without erythema or exudate. Mucous membranes are moist. Neck supple without meningeal signs. Respiratory: Clear to auscultation bilaterally. Breath sounds are equal bilaterally. Cardiovascular: Regular rate and rhythm. No rubs or gallops. GI: Soft, nondistended and nontender. Bowel sounds are present. Musculoskeletal: There is a PICC line in the right upper extremity. The left upper extremity has a sutured wound over the left forearm without any drainage or erythema, there is significant swelling and fluctuance without induration. There is swelling over the wound over the olecranon without significant swelling and fluctuance, no drainage, normal distal pulse. Normal motor and sensation in the left hand. Neurological: The patient is awake and alert. No focal deficits. Psychiatric: Normal affect. Medical Decision & Procedures ER Provider Diagnostic Interpretation: Other radiology results as stated below per my review and the radiologist's interpretation: CT left arm LEFT UPPER EXTREMITY WITH CLINICAL HISTORY: eval for abscess/seroma collection. Abscess. TECHNIQUE: Transaxial acquisition with multi axial reformatted images COMPARISON STUDY: None FINDINGS: Peripherally enhancing collection/seroma adjacent to the radius. This appears to contain small radiopaque densities and/or debris. This extends a linear fashion overlying for 16 cm adjacent to the radius. Maximum cross-sectional measurements are approximately 2 cm. This primarily within the subcutaneous fat and extends radially about the forearm and distal radius for a transverse dimension of 5 x 2.5 cm. There is a second linear collection posterior to the elbow measuring 2.5 x 9 cm. This again contains radiopaque densities and/or debris. The muscular components of the forearm and distal arm are intact. Both collections appear to be primarily within the subcutaneous fat red no well-defined acute bony abnormality. IMPRESSION: 1. Large linear fluid pocket/abscess versus seroma with a peripherally enhancing rim extending throughout the bulk of the length of the forearm adjacent to the distal radius. 2. This extends and semicircular pattern within the subcutaneous fat and again contains radiopaque debris. 3. Second curvilinear collection posterior to the elbow again within the subcutaneous fat measuring 9 x 2.5 cm. This again potentially relates to seroma versus abscess and shows peripheral rim enhancement. This again contains radiopaque debris 4. No evidence for muscular or bony involvement at the current time, although a component of reactive muscular edema may be present. Electronically signed by: Ancelmo Reyes M.D. 12/31/2016 11:25 AM Dictated Date/Time: 12/31/2016 11:12 AM Laboratory Results 12/31/16 09:46 Red Blood Count 4.27, Mean Corpuscular Volume 83.6, Mean Corpuscular Hemoglobin 28.3, Mean Corpuscular Hemoglobin Concent 33.9, Mean Platelet Volume 9.6, Neutrophils (%) (Auto) 64.0, Lymphocytes (%) (Auto) 22.5, Monocytes (%) (Auto) 10.4, Eosinophils (%) (Auto) 2.2, Basophils (%) (Auto) 0.7, Neutrophils # (Auto ) 6.99, Lymphocytes # (Auto) 2.46, Monocytes # (Auto) 1.14, Eosinophils # (Auto ) 0.24, Basophils # (Auto) 0.08 12/31/16 09:46 Test 12/31/16 09:46 White Blood Count 10.93 K/uL (4.8-10.8) Red Blood Count 4.27 M/uL (4.7-6.1) Hemoglobin 12.1 g/dL (14.0-18.0) Hematocrit 35.7 % (42-52) Mean Corpuscular Volume 83.6 fL (80-100) Mean Corpuscular Hemoglobin 28.3 pg (25-34) Mean Corpuscular Hemoglobin Concent 33.9 g/dl (32-36) Platelet Count 341 K/uL (130-400) Mean Platelet Volume 9.6 fL (7.4-10.4) Neutrophils (%) (Auto) 64.0 % Lymphocytes (%) (Auto) 22.5 % Monocytes (%) (Auto) 10.4 % Eosinophils (%) (Auto) 2.2 % Basophils (%) (Auto) 0.7 % Neutrophils # (Auto) 6.99 K/uL (1.4-6.5) Lymphocytes # (Auto) 2.46 K/uL (1.2-3.4) Monocytes # (Auto) 1.14 K/uL (0.11-0.59) Eosinophils # (Auto) 0.24 K/uL (0-0.5) Basophils # (Auto) 0.08 K/uL (0-0.2) RDW Standard Deviation 44.4 fL (36.4-46.3) RDW Coefficient of Variation 14.6 % (11.5-14.5) Immature Granulocyte % (Auto) 0.2 % Immature Granulocyte # (Auto) 0.02 K/uL (0.00-0.02) Anion Gap 11.0 mmol/L (3-11) Est Creatinine Clear Calc Drug Dose 153.6 ml/min Estimated GFR () 139.1 Estimated GFR (Non- 120.0 BUN/Creatinine Ratio 15.4 (10-20) Calcium Level 9.3 mg/dl (8.5-10.1) Laboratory results as reviewed by me. Medications Administered Medications (Trade) Dose Ordered Sig/Onofre Route Start Time Stop Time Status Last Admin Dose Admin Hydromorphone HCl (Dilaudid Inj) 0.5 mg NOW STAT IV 12/31/16 09:35 12/31/16 09:37 DC 12/31/16 09:56 0.5 MG Ondansetron HCl 4 mg 4 mg NOW STAT IV 12/31/16 09:35 12/31/16 09:37 DC 12/31/16 09:56 4 MG Sodium Chloride (Nss 1000ml) 1,000 ml @ 999 mls/hr Q1H1M STAT IV 12/31/16 10:42 12/31/16 11:42 DC 12/31/16 11:04 999 MLS/HR Heparin Sodium (Porcine) (Heparin 100 Unit/ml 5ml Flush) 5 ml STK-MED ONCE .ROUTE 12/31/16 13:40 12/31/16 13:42 DC 12/31/16 13:47 5 ML ED Course 0929: The patient was evaluated in room B6. A complete history and physical exam was performed. 0935: Ordered Zofran 4 mg IV, Dilaudid 0.5 mg IV. 1042: Per the nursing staff the patient is still experiencing significant pain. 1042: Ordered Sodium Chloride 1000 mL @ 999 mL/hr IV. 1138: I put out a page to [facility] at this time. 1146: I looked the patient up on the PDMP at this time, see PDMP section for additional information. 1249: I discussed the case with Dr. Castillo - [facility] at this time , he will evaluate the CT and call me back. 1319: I discussed the case with Dr. Castillo at this time he states that he would not drain the site at this time. He would like to follow up as an outpatient in his office next week. He states that I could prescribe more pain medications if he requests them. He notes that these are antibiotic rich fluid collections that are benefitting the patient's recovery. 1331: Dr. Miguel has seen the patient at this time. He confirms that the wound looks very good. 1334: I spoke with the patient about results of his visit at this time. He agrees to follow up as an outpatient. He is requesting pain medication for home. 1340: Ordered Heparin Sodium 5 mL IV. Medical Decision This is a 26-year-old male who presents with left arm pain. Differential diagnosis includes seroma, abscess, wound infection, compartment syndrome. I did perform a limited focused review of portions of the patient's old chart on the electronic medical record. The patient was diagnosed with a left forearm abscess and admitted to the hospital on December 13 and sent to the operating room. Dr. Castillo performed an Incision and Drainage and fasciectomy on the left forearm. I did evaluate the patient as noted above. The patient is presenting with swelling to his wounds on his left arm. He has no signs of compartment syndrome and is neurovascularly intact. There is no drainage from the wound or any evidence of cellulitis surrounding the wound. He does have fluctuance to the wounds. IV access was established. I did treat the patient with Dilaudid and Zofran IV. I did order and review the patient's blood work as noted in the electronic medical record. His white blood cell count is minimally elevated. I did order a CT of the left arm. I did review the images myself as well as the radiology report as described above. I did discuss the case with Dr. Castillo who performed his original surgery. He reviewed the CT scan and felt that there was no need to drain the fluid collections. He stated that there were antibiotic beads placed in the wounds and that the fluid was actually helping him. Dr. Marie, who had seen the patient during his hospitalization , did come and evaluate the patient in the emergency department. He agreed that the fluid collections did not need to be drained. They recommended follow up in a week. The patient was discharged with a prescription for oxycodone. [place] Drug Monitoring Program Search Results: patient reviewed within database, see additional documentation Drug Monitoring Findings: The patient was prescribed an 8 day supply of Percocet on December 25. He also received 10 days of OxyContin on the . Consults Time Called: 1138 Consulting Physician: Dr. Castillo [facility] Returned Call: [phone] I discussed the case with Dr. Castillo [facility] at this time, he will evaluate the CT and call me back. Impression Primary Impression: Fluid collection at surgical site Additional Impression: Postoperative pain of extremity Scribe Attestation The scribe's documentation has been prepared under my direct and personally reviewed by me in its entirety. I confirm that the note above accurately reflects all work, treatment, procedures, and medical decision making performed by me. Departure Information Dispostion Home / Self-Care Prescriptions Oxycodone Ir (Roxicodone Ir) 5 Mg Tab 5 MG PO Q4H Y for Pain, #20 TAB Prov: Tanmay Theodore M.D. 12/31/16 Referrals Nohelia Pham M.D. (MEDICAL) (PCP) Forms HOME CARE DOCUMENTATION FORM, IMPORTANT VISIT INFORMATION Patient Instructions My [facility] Additional Instructions You have been examined and treated today on an emergency basis only. This is not a substitute for, or an effort to provide, complete comprehensive medical care. It is impossible to recognize and treat all injuries or illnesses in a single emergency department visit. It is therefore important that you follow up closely with Dr. Castillo. Call as soon as possible for an appointment. Return for worsening symptoms or if you develop fever, vomiting, numbness or weakness to your hand, discoloration to your hand, pus like drainage from your wound or any other concerning symptoms. Problem Qualifiers Primary Impression: Fluid collection at surgical site Encounter type: initial encounter Qualified Codes: T88.8XXA - Other specified complications of surgical and medical care, not elsewhere classified, initial encounter
--- NOTE | 2016-12-31 14:36 | SURGICAL CONSULTATION ---
DATE OF CONSULTATION: 12/31/2016 DATE OF CONSULTATION: 12/31/2016. REASON FOR CONSULTATION: Followup of left upper extremity washout and implantation of pharmaceutical calcium sulfate beads with Dr. Marcin Castillo. REFERRING DOCTOR: Dr. Tanmay Theodore. HISTORY OF PRESENT ILLNESS: This is a 26-year-old male who developed an abscess in his left forearm and then had an abscess around his left olecranon process area. Dr. Castillo took him to the operating room a few times and the last time being on 12/19/2016. He was discharged home. I saw him back today when he came to the Emergency Room complaining of increased swelling in his arm. He does have some swelling in his arm; however, he is afebrile. His white count is 10,930, hemoglobin 12.1. His other labs looked fine. I evaluated his arm. He has no erythema whatsoever. He does have fluid over his left olecranon process in this forearm however there is no evidence of infection. This is due to fluid accumulation with the pharmaceutical calcium sulfate beads. I would not open this. I would not drain it. I looked at the CT scan and this is homogenous fluid and it will resorb. At this point, it was an extremely difficult infection to eradicate and I would not jeopardize this by draining this fluid off. I will see the patient back in the office in 48 hours. I discussed this with Dr. Theodore.
[2017-01-06] MEDS ORDERED: CEPH-571 PO (18:12)
[2017-01-06] MEDS ORDERED: METR-163 PO (18:12)
[2017-01-06] MEDS ORDERED: LVNIS80 SQ (18:12)
[2017-01-06] MEDS ORDERED: OXYC-57 PO (18:12)
[2017-01-06] MEDS ORDERED: WARF5TAB90 PO (18:12)
== END 2016-12-31 13:50 | disposition home or self-care (01) ==
LOC: C.EDB 09:09
DX: T88.8XXA Other specified complications of surgical and medical care, not elsewhere classified, initial encounter (principal); X58.XXXA Exposure to other specified factors, initial encounter; G89.18 Other acute postprocedural pain; L02.412 Cutaneous abscess of left axilla

== ENCOUNTER 2017-01-02 22:27 | Emergency (ER) | payer OTHER ==
[~2017-01-02] VITALS: Ht 188 cm; Wt 80.7 kg
[~2017-01-02 22:27] MED LIST changes: -ACET-1138 PO; -ASPEC81 PO; +OXYC1TAB3 PO; -OXYSR10 PO; -RXC5 PO
[2017-01-02 22:33] VITALS: Ht 188 cm; Wt 80.7 kg
[2017-01-02] MEDS ORDERED: HYDR-5688 PO (22:49)
[2017-01-02] MEDS ORDERED: VANCOMYCIN INJ 1,000 MG in SODIUM CHLORIDE 0.9% 250ML 250 ML IV STA (23:41)
[2017-01-02] MEDS ORDERED: ONDANSETRON INJ 2 MG/ML 2 ML VIAL IV PRN (23:45)
--- NOTE | 2017-01-02 23:53 | EMERGENCY ROOM VISIT NOTE ---
History Report prepared by Tevin: Marilyn Pope Under the Supervision of: Dr. Chalo Paz M.D. 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 The patient states he currently has a picc line placed in his right arm to get antibiotics for spider bite that he got in the end of November 2016. The patient states that one week ago he had the dressing for the picc line changed and he then started to notice pain and swelling in his right arm. He states the pain was manageable while he was taking pain medication but states he is no longer taken the pain medication which causes his pain level to increase. He states he is no longer able to life his right arm over his head secondary to pain. The patient states that he is currently getting Rocephin in his picc line. He states that his spider bite is healing and has antibiotic beads in his left forearm. The patient denies any fevers, chills or abdominal pain. 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 Review of Systems All systems have been listed, reviewed, and are negative other than those previously mentioned. Please see Additional Medical History Sheet. 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 Social History Smoking Status: Never Smoker Alcohol Use: occasionally Drug Use: none Marital Status: single Housing Status: lives alone Occupation Status: employed Current/Historical Medications Scheduled Ceftriaxone Sod (Rocephin), 2 GM IV DAILY Metronidazole (Flagyl), 1 TAB PO BID Scheduled PRN Hydrocodone/Acetaminophen 5MG/325MG ([place] 5MG/325MG), 1 TABLET PO PRN UD PRN for Pain Allergies Coded Allergies: No Known Allergies (Unverified , NONE, 12/31/16) Physical Exam Vital Signs Date Time Temp Pulse Resp B/P Pulse Ox O2 Delivery O2 Flow Rate FiO2 01/03/17 00:18 37.2 90 16 137/67 96 Room Air 01/02/17 22:33 37.6 112 18 124/74 94 Room Air Physical Exam GENERAL: Patient awake, alert, oriented x 3. Patient follows commands. Patient does not appear toxic. Patient is adequately hydrated and well- nourished. SKIN: No erythema, pallor, cyanosis or rash HEENT: Normal head, pupils equal, reactive to light and accommodation. LUNGS: Clear to auscultation. No wheezes, no rales, no rhonchi. HEART: No murmurs. No gallops. No rubs ABDOMEN: No masses, no rebound, no hepatomegaly or splenomegaly. EXTREMITIES: Left forearm has jennifer swelling with sutured incisions. right arm has erythema extending from wrist to axilla with picc line in upper arm. NEUROLOGIC: Cranial nerves II-XII within normal limits. No gross motor sensory function deficits. Medical Decision & Procedures ER Provider Diagnostic Interpretation: X ray results are stated below per my interpretation: Chest X-Ray: Predominate right hilum, no acute infiltrates, no cardiomegaly. Laboratory Results 01/02/17 23:55 Red Blood Count 4.44, Mean Corpuscular Volume 83.3, Mean Corpuscular Hemoglobin 28.4, Mean Corpuscular Hemoglobin Concent 34.1, Mean Platelet Volume 10.2, Neutrophils (%) (Auto) 53.1, Lymphocytes (%) (Auto) 32.3, Monocytes (%) (Auto) 13.2, Eosinophils (%) (Auto) 0.9, Basophils (%) (Auto) 0.3, Neutrophils # (Auto ) 6.14, Lymphocytes # (Auto) 3.73, Monocytes # (Auto) 1.53, Eosinophils # (Auto ) 0.10, Basophils # (Auto) 0.04 01/02/17 23:55 Test 01/02/17 23:55 01/03/17 00:06 White Blood Count 11.56 K/uL (4.8-10.8) Red Blood Count 4.44 M/uL (4.7-6.1) Hemoglobin 12.6 g/dL (14.0-18.0) Hematocrit 37.0 % (42-52) Mean Corpuscular Volume 83.3 fL (80-100) Mean Corpuscular Hemoglobin 28.4 pg (25-34) Mean Corpuscular Hemoglobin Concent 34.1 g/dl (32-36) Platelet Count 361 K/uL (130-400) Mean Platelet Volume 10.2 fL (7.4-10.4) Neutrophils (%) (Auto) 53.1 % Lymphocytes (%) (Auto) 32.3 % Monocytes (%) (Auto) 13.2 % Eosinophils (%) (Auto) 0.9 % Basophils (%) (Auto) 0.3 % Neutrophils # (Auto) 6.14 K/uL (1.4-6.5) Lymphocytes # (Auto) 3.73 K/uL (1.2-3.4) Monocytes # (Auto) 1.53 K/uL (0.11-0.59) Eosinophils # (Auto) 0.10 K/uL (0-0.5) Basophils # (Auto) 0.04 K/uL (0-0.2) RDW Standard Deviation 44.2 fL (36.4-46.3) RDW Coefficient of Variation 14.5 % (11.5-14.5) Immature Granulocyte % (Auto) 0.2 % Immature Granulocyte # (Auto) 0.02 K/uL (0.00-0.02) Anion Gap 10.0 mmol/L (3-11) Est Creatinine Clear Calc Drug Dose 139.2 ml/min Estimated GFR () 133.4 Estimated GFR (Non- 115.1 BUN/Creatinine Ratio 13.8 (10-20) Calcium Level 9.2 mg/dl (8.5-10.1) Magnesium Level 2.2 mg/dl (1.8-2.4) Total Bilirubin 0.8 mg/dl (0.2-1) Aspartate Amino Transf (AST/SGOT) 8 U/L (15-37) Alanine Aminotransferase (ALT/SGPT) 17 U/L (12-78) Alkaline Phosphatase 43 U/L (45-117) Total Protein 7.5 gm/dl (6.4-8.2) Albumin 3.4 gm/dl (3.4-5.0) Globulin 4.1 gm/dl (2.5-4.0) Albumin/Globulin Ratio 0.8 (0.9-2) Lactic Acid Level 1.1 mmol/L (0.4-2.0) Laboratory results as stated above per my review. Medications Administered Medications (Trade) Dose Ordered Sig/Onofre Route Start Time Stop Time Status Last Admin Dose Admin Morphine Sulfate (MoRPHine SULFATE INJ) 6 mg PRN PRN IV 01/02/17 23:45 3 23:44 01/03/17 00:15 6 MG Ondansetron HCl (Zofran Inj) 4 mg Q4H PRN IV 01/02/17 23:45 02/01/17 23:44 01/03/17 00:14 4 MG Vancomycin HCl (Vancomycin 1gm/ 270ml Nss) 1 gm STK-MED ONCE .ROUTE 01/03/17 00:10 01/03/17 00:12 DC 01/03/17 00:17 1 GM ECG Indication: other (infection) Rate (beats per minute): 87 Rhythm: normal sinus Findings: no acute ischemic change, no ectopy ED Course 2340: Past medical records reviewed. The patient was evaluated in room C9. A complete history and physical examination was performed. 2341: Ordered Vancomycin HCl 1,000 mg/Sodium Chloride 270 ml @ 125 mls/hr IV. 2345: Ordered Zofran Inj 4 mg IV, Morphine Sulfate 6 mg IV. 0045: I discussed the case with Dr. Radha Caraballo. He agreed to evaluate the patient for further management and care. Medical Decision Nurses notes reviewed. Medical history sheet reviewed. Differential diagnosis includes but is not limited to: cellulitis, lymphangitis, sepsis. The patient has a healing infection on his left arm. Patient has erythema on his right arm from hand to axilla. PICC line remains in place in the right upper arm. Multiple labs were obtained. The patient's lactic acid is not elevated. The patient does have significant cellulitis and will require IV antibiotics. PICC line will be pulled and cultured along with a blood culture. Patient is currently on Rocephin from home use. Vancomycin was added here. Consults Time Called: 39 Consulting Physician: Alexander Caraballo. Returned Call: [phone] I discussed the case with Dr. Radha Caraballo. He agreed to evaluate the patient for further management and care. Impression Primary Impression: Cellulitis Scribe Attestation The scribe's documentation has been prepared under my direction and personally reviewed by me in its entirety. I confirm that the note above accurately reflects all work, treatment, procedures, and medical decision making performed by me. Departure Information Dispostion Being Evaluated By Hospitalist Referrals Nohelia Pham M.D. (MEDICAL) (PCP) Patient Instructions My [facility]
[2017-01-03] MEDS ORDERED: VANCOMYCIN 1GM/270ML NSS ONE (00:10)
[2017-01-03] MEDS: MoRPHine SULFATE 10 MG/ML CARP/VIAL IV PRN ×2 (00:15→02:11)
[2017-01-03 00:18] VITALS: TEMP 37.2
[2017-01-03 00:51] LABS: BASO % 0.3 %; BASO ABS # 0.04 K/uL (0-0.2); COMPLETE YES; EOS % 0.9 %; IG% 0.2 %; LYMPH % 32.3 %; LYMPH ABS # 3.73 K/uL (1.2-3.4); MEAN CELL VOLUME 83.3 fL (80-100); MEAN CORPUSCULAR HEMOGLOBIN 28.4 pg (25-34); MEAN CORPUSCULAR HGB CONC 34.1 g/dl (32-36); MEAN PLATELET VOLUME 10.2 fL (7.4-10.4); MONO % 13.2 %; NEUT % 53.1 %; PLATELET COUNT 361 K/uL (130-400); RED BLOOD COUNT 4.44 M/uL (4.7-6.1); WHITE BLOOD COUNT 11.56 K/uL (4.8-10.8)
[2017-01-03 01:04] LABS: POTASSIUM 3.7 mmol/L (3.5-5.1)
[2017-01-03 01:10] LABS: BUN/CREATININE RATIO 13.8 (10-20); CALCIUM 9.2 mg/dl (8.5-10.1); CREATININE 0.91 mg/dl (0.60-1.40)
[2017-01-03 01:12] LABS: ALB/GLOB RATIO 0.8 (0.9-2); MAGNESIUM 2.2 mg/dl (1.8-2.4)
[2017-01-03 02:00] LABS: THYROID STIMULATING HORMONE 5.09 uIu/ml (0.300-4.500)
--- NOTE | 2017-01-03 02:47 | Progress Note ---
Internal Med Progress Note Date of Service: Jan 03, 2017. Provider Documentation: Px decided he does not want to be admitted despite being counselled by Dr. Paz and myself about potential complications of inadequately treated/monitored sepsis w/c includes . Px signed AMA form. Px dcd w/ prescription for Doxycycline 100 mg PO BID x 10 days. I counselled px about local measures for cellulitis (RUE elevation whenever possible, warm compresses TID). I advised him about need for ffup w/ PCP w/in a week and to return to the ER if w/ progression of swelling or recurrence of fever despite home antibiotic rx. I will contact his PCP's office in AM to facilitate ER follow-up. Vital Signs: Date Time Temp Pulse Resp B/P Pulse Ox O2 Delivery O2 Flow Rate FiO2 01/03/17 03:15 76 16 123/69 95 Room Air 01/03/17 01:59 90 16 128/50 97 Room Air 01/03/17 00:18 37.2 90 16 137/67 96 Room Air 01/02/17 22:33 37.6 112 18 124/74 94 Room Air Lab Results: Results Past 24 Hours Test 01/02/17 23:55 01/03/17 00:06 Range/Units White Blood Count 11.56 4.8-10.8 K/uL Red Blood Count 4.44 4.7-6.1 M/uL Hemoglobin 12.6 14.0-18.0 g/dL Hematocrit 37.0 42-52 % Mean Corpuscular Volume 83.3 80-100 fL Mean Corpuscular Hemoglobin 28.4 25-34 pg Mean Corpuscular Hemoglobin Concent 34.1 32-36 g/dl Platelet Count 361 130-400 K/uL Mean Platelet Volume 10.2 7.4-10.4 fL Neutrophils (%) (Auto) 53.1 % Lymphocytes (%) (Auto) 32.3 % Monocytes (%) (Auto) 13.2 % Eosinophils (%) (Auto) 0.9 % Basophils (%) (Auto) 0.3 % Neutrophils # (Auto) 6.14 1.4-6.5 K/uL Lymphocytes # (Auto) 3.73 1.2-3.4 K/uL Monocytes # (Auto) 1.53 0.11-0.59 K/uL Eosinophils # (Auto) 0.10 0-0.5 K/uL Basophils # (Auto) 0.04 0-0.2 K/uL RDW Standard Deviation 44.2 36.4-46.3 fL RDW Coefficient of Variation 14.5 11.5-14.5 % Immature Granulocyte % (Auto) 0.2 % Immature Granulocyte # (Auto) 0.02 0.00-0.02 K/uL Sodium Level 140 136-145 mmol/L Potassium Level 3.7 3.5-5.1 mmol/L Chloride Level 102 98-107 mmol/L Carbon Dioxide Level 28 21-32 mmol/L Anion Gap 10.0 3-11 mmol/L Blood Urea Nitrogen 13 7-18 mg/dl Creatinine 0.91 0.60-1.40 mg/dl Est Creatinine Clear Calc Drug Dose 139.2 ml/min Estimated GFR () 133.4 Estimated GFR (Non- 115.1 BUN/Creatinine Ratio 13.8 10-20 Random Glucose 105 70-99 mg/dl Calcium Level 9.2 8.5-10.1 mg/dl Magnesium Level 2.2 1.8-2.4 mg/dl Total Bilirubin 0.8 0.2-1 mg/dl Aspartate Amino Transf (AST/SGOT) 8 15-37 U/L Alanine Aminotransferase (ALT/SGPT) 17 12-78 U/L Alkaline Phosphatase 43 45-117 U/L Total Protein 7.5 6.4-8.2 gm/dl Albumin 3.4 3.4-5.0 gm/dl Globulin 4.1 2.5-4.0 gm/dl Albumin/Globulin Ratio 0.8 0.9-2 Thyroid Stimulating Hormone (TSH) 5.090 0.300-4.500 uIu/ml Lactic Acid Level 1.1 0.4-2.0 mmol/L Microbiology Results 01/03/17 Blood Culture, Received Pending 01/02/17 Blood Culture, Received Pending 01/03/17 Catheter Tip Culture, Received Pending
[2017-01-03] MEDS ORDERED: DOXYCYCLINE HYCLATE 100 MG CAP PO STA (03:06)
[2017-01-03 03:15] VITALS: BP 123/69; PULSE 76; O2SAT 95
--- NOTE | 2017-01-03 07:29 | CONSULTATION REPORT ---
DATE OF CONSULTATION: 01/02/2017 PRIMARY CARE PHYSICIAN: Dr. Pham. Patient seen at request of Dr. Paz for evaluation for RUE cellulitis. HISTORY OF PRESENT ILLNESS: Medical history significant for chronic anemia, (baseline hemoglobin 12), abscess on the LUE status post surgery and outpx antibiotic course. Recent confinement about 2 weeks ago for abscess on the left forearm w/secondary left septic olecranon bursitis. Possibly from a spider bite. Patient underwent drainage procedures. CS grew alpha strep not enterococcus, Prevotella, peptostreptococcus. Patient discharged on 2-week course of IV Ceftriaxone via PICC line and PO Metronidazole. Resolution of LUE infection. A few days ago, patient noted right upper extremity swelling on PICC line site, fever, chills. Patient denies chest pain, shortness of breath. Seen at orthopedic doctor's office yesterday. Concern for RUE cellulitis. Patient sent to the Emergency Room. Patient received IV Vancomycin in the ER for poss sepsis. PX refusing admission. MEDICAL HISTORY: As above. SURGERIES: LUE abscess drainage procedures. HOME MEDICATIONS: Ceftriaxone, metronidazole, aspirin, OxyContin, oxycodone. FAMILY HISTORY: Hypertension. 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 all other ROS negative PHYSICAL EXAMINATION: VITAL SIGNS: Blood pressure was noted to be 124/74, pulse rate 112 later 90, RR 18, T 37.6 sats 94 on room air. GENERAL: Noted to be slightly anxious, no respiratory distress. SKIN: Pallor. HEENT: Pale palpebral conjunctivae. Dry mucosa. NECK: No JVD. supple CHEST: Clear to auscultation. HEART: RRR. EXTREMITIES: Healing incisional wound on the LUE. Tender swelling on the right upper extremity. NEUROLOGIC: No gross focality. LABS: Hemoglobin 12.6, hematocrit 37, white cell count 11.5, platelets 361. Sodium 140, potassium 3.7, chloride 102, CO2 28, BUN 13, creatinine 0.9, glucose 105. ASSESSMENT: 1. Sepsis secondary to RUE cellulitis. RUE PICC line site sp removal at the ER today ro DVT 2. LUE abscess sp drainage and outpx antibiotic rx significant improvement as per px 3. chronic anemia, Hg at baseline RECOMMENDATIONS: Agree with the ER physician's decision to admit px to monitor response to tx. ff CS, Doxycycline trial (MRSA coverage important) local measures for cellulitis RUE venous dopplers ro DVT Unfortunately, px ambivalent about staying from onset. He changed his mind twice at the ER. "I really don't like hospitals." Px finally decided he does not want to be admitted despite being counselled by Dr. Paz and myself about potential complications of inadequately treated/monitored sepsis w/c includes . Px signed AMA form. Px dcd w/ prescription for Doxycycline 100 mg PO BID x 10 days. I counselled px about local measures for cellulitis (RUE elevation whenever possible, warm compresses TID). I advised him about need for ffup w/ PCP w/in a week and to return to the ER if w/ progression of swelling or recurrence of fever despite home antibiotic rx. I will contact his PCP's office in AM to facilitate ER follow-up. Thank you very much for this consultation. GIUSEPPE
--- NOTE | 2017-01-03 08:00 | DIAGNOSTIC IMAGING REPORT ---
TWO VIEW CHEST CLINICAL HISTORY: Cellulitis of the left upper extremity. FINDINGS: PA and lateral chest radiographs are compared to study dated 12/25/2015 and correlated with chest CT dated 08/04/2016. A right-sided PICC line is in place. The tip projects over the cavoatrial junction. The cardiomediastinal silhouette is unremarkable. The lungs and pleural spaces are clear. There is no pneumothorax. The bony thorax appears intact. IMPRESSION: 1. No active disease in the chest. 2. A right-sided PICC line is new from previous. Electronically signed by: Balwinder Argueta M.D. 01/03/2017 7:59 AM Dictated Date/Time: 01/03/2017 7:58 AM
[2017-01-06] MEDS ORDERED: METR-163 PO (18:12)
[2017-01-06] MEDS ORDERED: WARF5TAB90 PO (18:12)
[2017-01-06] MEDS ORDERED: OXYC-57 PO (18:12)
[2017-01-06] MEDS ORDERED: CEPH-571 PO (18:12)
[2017-01-06] MEDS ORDERED: LVNIS80 SQ (18:12)
== END 2017-01-03 03:05 | disposition left against medical advice (07) ==
LOC: C.EDB 22:29 → CANBEDREQ 01-03 02:47 → C.EDC 01-03 03:05
DX: L03.113 Cellulitis of right upper limb (principal); Z79.2 Long term (current) use of antibiotics; F32.9 Major depressive disorder, single episode, unspecified

== ENCOUNTER 2017-01-05 01:04 | Inpatient (IN) | payer OTHER ==
[~2017-01-05] VITALS: Ht 190.5 cm; Wt 80.1 kg
[~2017-01-05 01:04] MED LIST changes: -CEFT1INJ57 IV; +HYDR-5688 PO; -METR500T PO; -OXYC1TAB3 PO
[2017-01-05] MEDS ORDERED: SODIUM CHLORIDE 0.9% 1000ML 1,000 ML IV STA (01:24)
[2017-01-05] MEDS ORDERED: CEFTRIAXONE SOD INJ 2,000 MG in DEXTROSE 5% 50ML 50 ML IV STA (01:28)
[2017-01-05] MEDS ORDERED: VANCOMYCIN INJ 2,000 MG in SODIUM CHLORIDE 0.9% 500ML 500 ML IV SCH (01:30)
[2017-01-05 02:09] LABS: BUN/CREATININE RATIO 15.1 (10-20); CALCIUM 9.1 mg/dl (8.5-10.1); CREATININE 0.91 mg/dl (0.60-1.40); INR 1.1 (0.9-1.1); MAGNESIUM 2.3 mg/dl (1.8-2.4); PARTIAL THROMBOPLASTIN RATIO 1.3; POTASSIUM 4.2 mmol/L (3.5-5.1); PROTHROMBIN TIME (PATIENT) 11.9 SECONDS (9.0-12.0)
[2017-01-05 02:12] LABS: ALB/GLOB RATIO 0.8 (0.9-2); BASO % 0.7 %; BASO ABS # 0.07 K/uL (0-0.2); C-REACTIVE PROTEIN 5.8 mg/dl (0-0.29); COMPLETE YES; EOS % 1.9 %; HEMATOCRIT 34.6 % (42-52); LYMPH % 27.4 %; LYMPH ABS # 2.64 K/uL (1.2-3.4); MEAN CELL VOLUME 82.4 fL (80-100); MEAN CORPUSCULAR HEMOGLOBIN 28.3 pg (25-34); MEAN CORPUSCULAR HGB CONC 34.4 g/dl (32-36); PLATELET COUNT 392 K/uL (130-400); WHITE BLOOD COUNT 9.62 K/uL (4.8-10.8)
[2017-01-05] MEDS ORDERED: OXYC-57 PO (02:14)
[2017-01-05] MEDS ORDERED: DOXY1TAB6 PO (02:15)
[2017-01-05] MEDS ORDERED: METR-163 PO (02:16)
[2017-01-05] MEDS ORDERED: IBUPROFEN 200 MG TAB PO PRN (02:30)
[2017-01-05] MEDS ORDERED: ACETAMINOPHEN 325 MG TAB PO PRN (02:45)
[2017-01-05] MEDS ORDERED: LORAZEPAM 2 MG/ML 1 ML VIAL IV PRN (02:45)
[2017-01-05] MEDS ORDERED: ONDANSETRON INJ 2 MG/ML 2 ML VIAL IV PRN (02:45)
[2017-01-05] MEDS ORDERED: VANCOMYCIN CONSULT ACTIVE PRN (03:45)
[2017-01-05] MEDS ORDERED: PIPERACILLIN/TAZOBACTAM 4.5 GM/100ML D5W IV STA (04:04)
[2017-01-05] MEDS ORDERED: PIPERACILL/TAZOBAC IV 3.375 GM in DEXTROSE 5% 100ML IV ONE (04:15)
[2017-01-05] MEDS ORDERED: LORAZEPAM INJ 0.5 MG in SYRINGE 0.75 ML IV PRN (04:15)
[2017-01-05] MEDS ORDERED: PIPERACILL/TAZOBAC CONSULT ACTIVE PRN (04:15)
[2017-01-05] MEDS ORDERED: HEPARIN IV LOW DOSE NO BOLUS SCH (04:15)
[2017-01-05] MEDS: TRAMADOL HCL 50 MG TAB PO PRN ×3 (04:18→19:56)
--- NOTE | 2017-01-05 04:50 | HISTORY & PHYSICAL EXAMINATION ---
DATE OF ADMISSION: 01/05/2017 PRIMARY CARE DOCTOR: Dr. Pham. Hx obtained from px and records. CHIEF COMPLAINT: Worsening right upper extremity swelling. HISTORY OF PRESENT ILLNESS: Medical history is significant for anxiety, migraine as per records, abscess LUE sp drainage, antibiotic rx. Recent confinement in the hospital last about 3 weeks ago for abscess of left forearm with secondary Left olecranon bursitis. ? spider bite as cause CS grew strep, peptostreptococcus, Prevotella. Patient underwent drainage procedures. Patient discharged on two week course of IV Ceftriaxone via PICC line and PO Flagyl. Improvement of left upper extremity infection as per px. Last week, patient noted right upper swelling ( PICC line site) along w/ fever and chills. No chest pain, no shortness of breath. Seen at the orthopedic doctor's office. Px sent to the Emergency Room for evaluation. PX received IV vancomycin in the ER for possible sepsis. Patient refused admission. Patient was discharged on doxycycline. Px had worsening of right upper extremity swelling despite compliance w/ meds. Patient had chills this morning, drenched in sweat as per . Left upper extremity swelling about the same; although he is complaining of "tightness" on the Left elbow. At the Emergency Room, the patient received IV Vancomycin. MEDICAL HISTORY: As above. SURGERIES: LUE abscess drainage procedures. HOME MEDICATIONS: Include doxycycline. ALLERGIES: No known drug allergies. FAMILY HISTORY: There is a family history of hypertension. PERSONAL AND SOCIAL HISTORY: Nonsmoker. 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 PHYSICAL EXAMINATION: VITAL SIGNS: Blood pressure was noted to be 130/74, pulse rate 90 RR 20 T 37 O2_ sats 99 on room air. GENERAL: Noted to be comfortable, in no respiratory distress. SKIN: Pallor. HEENT: Pale palpebral conjunctivae. Dry mucosa. NECK: No JVD. Supple. CHEST: Clear to auscultation. HEART: Regular rate and rhythm. ABDOMEN: Soft. EXTREMITIES: Tender swelling on the right upper extremity healed incisional wound/scars on localized swellings on the left forearm and L elbow, some tenderness, no erythema LABORATORIES: Hemoglobin 11.9, WBC 9 platelets 392. Sodium 140, potassium 4.2, chloride 107, CO2 28, BUN 14, creatinine 0.9, glucose 90 ASSESSMENT: 1. Cellulitis, RUE sp PICC line removal failed outpatient treatment. No sepsis. ro DVT 2. Left upper extremity abscess status post-drainage sp outpx Ceftriaxone/ Flagyl course ? equivocal improvement 3. Postop anemia, hemoglobin at baseline. PLAN: GMF Cultures. IV Vancomycin. Follow UE venous Dopplers to rule out DVT. Ortho consult. postoperative evaluation of LUE abscess Deep venous thrombosis prophylaxis: SCDs. Full code. ADDENDUM : Made aware of US initial read : RUE Acute DVT, RUE LUE complex abscesses, LUE low dose IV heparin for now, defer choice of oral agent to AM provider D/C Vancomycin (RUE swelling not from cellulitis but from DVT) IV Zosyn for persistent abscess LUE for now MTDD
--- NOTE | 2017-01-05 04:57 | EMERGENCY ROOM VISIT NOTE ---
History First contact with patient: 01:13 Chief Complaint: INFECTION Stated Complaint: INFECTION IN RIGHT ARM - PAINFUL Nursing Triage Summary: Pt reports he was here 2 days ago with infected PICC line to right upper arm. Pt reports the pain and swelling is worse. intermittent fevers. History of Present Illness The patient is a 26 year old male who presents to the Emergency Room with complaints of increasing pain and swelling to the right arm over the past few days that had a PICC line removed here 2 days ago. He was offered admission and refused. He has been taking his doxycycline and Flagyl. He's had intermittent fevers. Nothing documented. Patient denies chest pain, dyspnea, cough, congestion, vomiting, diarrhea, numbness, tingling. He denies IV drug abuse. Patient states he returns for admission. Review of Systems See HPI for pertinent positives & negatives. A total of 10 systems reviewed and were otherwise negative. 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 Social History Smoking Status: Current Every Day Smoker Alcohol Use: occasionally Drug Use: none Marital Status: in relationship Housing Status: lives alone Occupation Status: employed Current/Historical Medications Scheduled Doxycycline Hyclate (Doxycycline Hyclate), 100 MG PO BID Metronidazole (Flagyl), 500 MG PO BID Scheduled PRN Oxycodone/Acetaminophen 5MG/325MG (Percocet 5MG/325MG), 1 TABLET PO Q6H PRN for Pain Allergies Coded Allergies: No Known Allergies (Unverified , NONE, 12/31/16) Physical Exam Vital Signs Date Time Temp Pulse Resp B/P Pulse Ox O2 Delivery O2 Flow Rate FiO2 01/05/17 01:51 98 Room Air 01/05/17 01:05 36.9 76 20 123/74 99 Physical Exam VITALS: Vitals are noted on the nurse's note and reviewed by myself. Vital signs stable. GENERAL: Pleasant male, in no acute distress, nondiaphoretic, well-developed well-nourished. SKIN: Right upper arm erythematous and edematous concerning for cellulitis with large right axillary lymph nodes that are tender to palpation. Left forearm and elbow edematous with antibiotic seeds placed from 2 weeks ago. These areas are not erythematous or fluctuant. The rest of the skin was without rashes, erythema, edema, or bruising. There is no tenting of the skin. Capillary reflex less than 2 seconds. HEAD: Normocephalic atraumatic. EARS: External auditory canals clear, tympanic membranes pearly ma without erythema or effusion bilaterally. EYES: Pupils equal round and reactive to light and accommodation. Conjunctivae without injection, sclerae without icterus. Extraocular movements intact. NOSE: Patent, turbinates without inflammation or discharge. MOUTH: Mucous membranes moist. Pharynx without erythema or exudate. Uvula midline. Airway patent. Tongue does not deviate. NECK: Supple without nuchal rigidity. No lymphadenopathy. No thyromegaly. Cervical spine is nontender. No JVD. HEART: Regular rate and rhythm without murmurs gallops or rubs. LUNGS: Clear to auscultation bilaterally without wheezes, rales or rhonchi. No dullness to percussion. No retractions or accessory muscle use. ABDOMEN: Positive bowel sounds x 4. Normal tympanic percussion. Soft, nontender, without masses or organomegaly. Poole sign negative. No guarding or rebound tenderness. MUSCULOSKELETAL: No muscle atrophy noted. Right upper arm erythematous and edematous concerning for cellulitis with large right axillary lymph nodes that are tender to palpation. Left forearm and elbow edematous with antibiotic seeds placed from 2 weeks ago. These areas are not erythematous or fluctuant. Radial pulses +2 equal present bilaterally. NEURO: Patient was alert and oriented to person place and time. Normal sensation to light and sharp touch. No focal neurological deficits. Medical Decision & Procedures Laboratory Results 01/05/17 01:35 Red Blood Count 4.20, Mean Corpuscular Volume 82.4, Mean Corpuscular Hemoglobin 28.3, Mean Corpuscular Hemoglobin Concent 34.4, Mean Platelet Volume 10.0, Neutrophils (%) (Auto) 57.0, Lymphocytes (%) (Auto) 27.4, Monocytes (%) (Auto) 13.0, Eosinophils (%) (Auto) 1.9, Basophils (%) (Auto) 0.7, Neutrophils # (Auto ) 5.48, Lymphocytes # (Auto) 2.64, Monocytes # (Auto) 1.25, Eosinophils # (Auto ) 0.18, Basophils # (Auto) 0.07 01/05/17 01:35 Test 01/05/17 01:35 01/05/17 01:41 White Blood Count 9.62 K/uL (4.8-10.8) Red Blood Count 4.20 M/uL (4.7-6.1) Hemoglobin 11.9 g/dL (14.0-18.0) Hematocrit 34.6 % (42-52) Mean Corpuscular Volume 82.4 fL (80-100) Mean Corpuscular Hemoglobin 28.3 pg (25-34) Mean Corpuscular Hemoglobin Concent 34.4 g/dl (32-36) Platelet Count 392 K/uL (130-400) Mean Platelet Volume 10.0 fL (7.4-10.4) Neutrophils (%) (Auto) 57.0 % Lymphocytes (%) (Auto) 27.4 % Monocytes (%) (Auto) 13.0 % Eosinophils (%) (Auto) 1.9 % Basophils (%) (Auto) 0.7 % Neutrophils # (Auto) 5.48 K/uL (1.4-6.5) Lymphocytes # (Auto) 2.64 K/uL (1.2-3.4) Monocytes # (Auto) 1.25 K/uL (0.11-0.59) Eosinophils # (Auto) 0.18 K/uL (0-0.5) Basophils # (Auto) 0.07 K/uL (0-0.2) RDW Standard Deviation 42.8 fL (36.4-46.3) RDW Coefficient of Variation 14.1 % (11.5-14.5) Immature Granulocyte % (Auto) 0.0 % Immature Granulocyte # (Auto) 0.00 K/uL (0.00-0.02) Erythrocyte Sedimentation Rate 48 mm/hr (0-14) Prothrombin Time 11.9 SECONDS (9.0-12.0) Prothromb Time International Ratio 1.1 (0.9-1.1) Activated Partial Thromboplast Time 33.4 SECONDS (21.0-31.0) Partial Thromboplastin Ratio 1.3 Anion Gap 7.0 mmol/L (3-11) Est Creatinine Clear Calc Drug Dose 139.0 ml/min Estimated GFR () 133.4 Estimated GFR (Non- 115.1 BUN/Creatinine Ratio 15.1 (10-20) Calcium Level 9.1 mg/dl (8.5-10.1) Magnesium Level 2.3 mg/dl (1.8-2.4) Total Bilirubin 0.3 mg/dl (0.2-1) Aspartate Amino Transf (AST/SGOT) 9 U/L (15-37) Alanine Aminotransferase (ALT/SGPT) 18 U/L (12-78) Alkaline Phosphatase 40 U/L (45-117) C-Reactive Protein 5.80 mg/dl (0-0.29) Total Protein 7.6 gm/dl (6.4-8.2) Albumin 3.4 gm/dl (3.4-5.0) Globulin 4.2 gm/dl (2.5-4.0) Albumin/Globulin Ratio 0.8 (0.9-2) Bedside Lactic Acid Venous 1.21 mmol/L (0.90-1.70) Medications Administered Medications (Trade) Dose Ordered Sig/Onofre Route Start Time Stop Time Status Last Admin Dose Admin Sodium Chloride 1,000 ml @ 999 mls/hr Q1H1M STAT IV 01/05/17 01:24 01/05/17 02:24 DC 01/05/17 01:49 999 MLS/HR Ceftriaxone Sodium 2000 mg/ Dextrose 70 ml @ 100 mls/hr ONE STAT IV 01/05/17 01:28 01/05/17 04:12 DC 01/05/17 01:48 100 MLS/HR Vancomycin HCl/ Sodium Chloride (Vancomycin Inj/ Nss 500ml) 540 ml @ 200 mls/hr UD IV 01/05/17 01:30 01/05/17 04:04 DC 01/05/17 03:23 200 MLS/HR ED Course Prior records reviewed and summarized as above. Triage Nursing notes reviewed. Additional history obtained from friend. The patient's history was concerning for swelling and redness of the skin. Differential diagnosis: Etiologies such as cellulitis, abscess, MRSA infection, DVT, necrotizing fasciitis, dermatitis, drug eruption, as well as others were entertained.. Physical examination: The physical examination was consistent with cellulitis ER treatment provided: Vancomycin, Rocephin On reassessment the patient felt better. Diagnostics interpreted by me: The labs revealed no worrisome leukocytosis. Elevated sedimentation rate and CRP Imaging studies: Right upper extremity: Acute DVT in the right subclavian and right axillary veins. Superficial venous thrombus in the right basilic vein, and superficial right forearm vein at the site of prior IV per notes. Slow flow in the right brachial veins. Left upper extremity: No evidence of deep venous thrombosis in the left upper extremity. Complex fluid collections with debris in the left posterior elbow and anterior forearm, measuring 8.8 x 2.8 x 4.9 cm and 11.6 x 1.4 cm, respectively. Differential includes hematoma or infection. Recommend imaging follow-up to ensure resolution. Radiologist: Da Arellano MD Study ready at 03:51 and initial results transmitted at 04:00 Critical Value Communications Clear Time Type Notes 01/05/17 04:04 Call Doctor Regarding Acute DVT, called Nataly Obrien PA-C on 01/05 Consultation: A consultation was placed with Dr. Radha arnett. The case was discussed and diagnostics were reviewed. The patient was evaluated in the ER for further treatment. This appears to be right upper extremity cellulitis and DVT. Medicine states they will adjust the DVT and start the anticoagulation. Patient was supposed to be admitted 2 days ago. He now returns for admission as it is worse. He's been having fevers at home. No palpable abscess. He was neurovascularly and neurologically intact. He will be evaluated by medicine. By the evaluation outlined above emergent etiologies such as abscess, necrotizing fasciitis, DVT, as well as others were deemed relatively unlikely. The pt informed about the findings as listed above. All questions were answered and pleased with the treatment. Case reviewed with my attending. Medical Decision As above Impression Primary Impression: Right arm cellulitis Additional Impression: DVT of right axillary vein, acute Departure Information Dispostion Being Evaluated By Hospitalist Condition FAIR Referrals Nohelia Pham M.D. (MEDICAL) (PCP) Patient Instructions My [facility] Problem Qualifiers
[2017-01-05 05:00] LABS: URINE APPEARANCE CLEAR (CLEAR); URINE BILIRUBIN NEG (NEG); URINE COLOR DK YELLOW; URINE NITRITE POS (NEG); URINE PH 7.5 (4.5-7.5); URINE SPECIFIC GRAVITY 1.018 (1.000-1.030); UROBILINOGEN NEG (NEG); ZZUR CULT IF INDIC CLEAN CATCH NO
[2017-01-05 05:04] LABS: MANUAL MICROSCOPIC REQUIRED? NO; REVIEW REQ? NO
[2017-01-05] MEDS: HEPARIN 25,000 UNIT/500ML D5W 500 ML IV PRN ×2 (05:04→12:52)
[2017-01-05] MEDS: MoRPHine SULFATE 2 MG/ML CARP IV PRN ×3 (05:11→17:57)
[2017-01-05 05:31] VITALS: BP 123/74; PULSE 76; TEMP 36.9; O2SAT 97; Ht 190.5 cm; Wt 80.1 kg
[2017-01-05] MEDS: KETOROLAC TROMETHAMINE 30 MG/ML VIAL IV PRN ×2 (06:16→16:18)
--- NOTE | 2017-01-05 06:19 | DIAGNOSTIC IMAGING REPORT ---
CHEST ONE VIEW PORTABLE CLINICAL HISTORY: Sepsis dyspnea COMPARISON STUDY: 01/03/2017 FINDINGS: Interval removal of the PICC catheter. Lungs are clear. Diaphragms smooth. IMPRESSION: No acute process. Interval removal of the right-sided PICC catheter Electronically signed by: Ancelmo Reyes M.D. 01/05/2017 6:18 AM Dictated Date/Time: 01/05/2017 6:17 AM
--- NOTE | 2017-01-05 06:23 | DIAGNOSTIC IMAGING REPORT ---
VENOUS DOPPLER THE ARMS UPPER EXTREMITY VENOUS DOPPLER HISTORY: Pain. Abscess. Collection. B arm swelling, ? DVT COMPARISON STUDY: CT dated 12/31/2016 FINDINGS: Acute deep venous thrombosis within the right arm. This includes a right subclavian and right axillary vein. Superficial thrombophlebitis within the right basilic vein. Left arm shows no evidence for deep venous thrombosis. Complex fluid collections again noted within the forearm and elbow regions. IMPRESSION: 1. Acute deep venous thrombosis right upper arm. 2. Right basilic vein superficial thrombophlebitis. 3. Complex collections/abscesses within the left arm and forearm are again noted. Electronically signed by: Ancelmo Reyes M.D. 01/05/2017 6:21 AM Dictated Date/Time: 01/05/2017 6:18 AM
[2017-01-05 08:07] VITALS: BP 95/56; PULSE 45; TEMP 36.4; O2SAT 97
[2017-01-05 08:22] LABS: BENZODIAZEPINE, URINE NEG (NEG); COCAINE,URINE NEG (NEG); PHENCYCLIDINE, URINE NEG (NEG)
[2017-01-05 08:37] VITALS: PULSE 77
--- NOTE | 2017-01-05 10:47 | ORTHOPEDIC CONSULTATION ---
DATE OF CONSULTATION: 01/05/2017 CHIEF COMPLAINT: Left elbow swelling. HISTORY OF PRESENT ILLNESS: This patient is an unfortunate 26-year-old male with an extensive history related to his left upper extremity. This apparently began when he was in [place] a month or two past when he developed pain and swelling in the left arm. It looked like what was felt to be a necrotizing fasciitis of uncertain etiology. He apparently had an operation and debridement and was eventually admitted to [facility] on January 03. Approximately 2 weeks ago, he underwent an extensive operative debridement of the left forearm and elbow for recurrent infection. This was done by Dr. Castillo and Dr. Marie. Apparently after debridement and irrigation, antibiotic beads were placed and closed and the patient was sent home on antibiotics. He was admitted with swelling mostly of the right upper extremity at the site of a PICC line, which was removed. He has evidence of a DVT in the right upper extremity, most likely secondary to the PICC line. He was admitted for this. While admitted, he was complaining of some pain and swelling mostly at the left elbow. The forearm appears to be good without complaints of pain. The elbow is more painful. Again, he presents with this today and he tells us that his elbow is more painful. He is currently receiving treatment for the upper extremity again DVT. LABORATORY VALUES: The patient does not have an elevated white count. His sed rate is only 48. PHYSICAL EXAMINATION: VITAL SIGNS: He is afebrile. ORTHOPEDIC: Exam limited to mostly the left upper extremity shows scars consistent with previous surgery over the volar aspect of the forearm and the elbow. Both scars are well approximated with no significant redness or erythema. No drainage. The patient can easily flex his elbow to about 90 degrees. There is some swelling, but not tense and again no drainage or heaves. IMAGING STUDIES: An ultrasound of the extremity showed that there is some fluid collection in the left arm with no evidence of DVT. IMPRESSION: Subcutaneous fluid with discomfort secondary to incision and drainage and placement of antibiotic beads. PLAN: I discussed at length with the patient today that he does have subcutaneous antibiotic beads. These will cause localized swelling. Neither wound looks angry, erythematous. There is no need to aspirate the wounds as there are antibiotic beads present and reactive fluid will cause this appearance. Cultures will most likely not show anything because of the gentamicin and antibiotic in the beads. I would treat the patient expectantly with just observation, continue treatment as indicated for the right upper extremity DVT, and we will follow as needed. Thank you for this consult.
[2017-01-05 11:21] LABS: PARTIAL THROMBOPLASTIN RATIO 1.5
[2017-01-05] MEDS: PIPERACILL/TAZOBAC IV 3.375 GM in DEXTROSE 5% 100ML IV SCH ×2 (11:21→17:56)
[2017-01-05] MEDS ORDERED: HEPARIN IV BOLUS 4,500 UNIT in SYRINGE 0 ML IV ONE ×2 (12:45→20:00)
[2017-01-05 16:09] VITALS: BP 95/59; PULSE 86; TEMP 36.8; O2SAT 94
--- NOTE | 2017-01-05 18:18 | Progress Note ---
Medicine Progress Note Date & Time of Visit: Jan 05, 2017 at 17:55. Subjective Pt was seen and examined lying in bed with no distress pt said that he is having a lot of pain he said that the pain med helps but does not last long denies any chest pain, palpitation, dizziness and fever Objective Last 8 Hrs Date Time Temp Pulse Resp B/P Pulse Ox O2 Delivery O2 Flow Rate FiO2 01/05/17 16:43 Room Air 01/05/17 16:09 36.8 86 20 95/59 94 Room Air Physical Exam: General- No acute distress Head- atraumatic Eyes- PERRL, EOMI ENT- oropharynx clear Neck- supple, no JVD Lungs- clear to auscultation and percussion Heart- regular rhythm; no murmur Abdomen- normal bowel sounds, soft Extremities- no calf tenderness, left elbow tenderness, left forearm swelling, healing scars from recent surgery of left forearm, no erythema Neuro- alert, oriented x 3; PERRL, EOMI Skin- warm & dry Laboratory Results: Last 24 Hours Test 01/05/17 01:35 01/05/17 01:41 01/05/17 04:35 01/05/17 10:59 White Blood Count 9.62 K/uL Red Blood Count 4.20 M/uL Hemoglobin 11.9 g/dL Hematocrit 34.6 % Mean Corpuscular Volume 82.4 fL Mean Corpuscular Hemoglobin 28.3 pg Mean Corpuscular Hemoglobin Concent 34.4 g/dl Platelet Count 392 K/uL Mean Platelet Volume 10.0 fL Neutrophils (%) (Auto) 57.0 % Lymphocytes (%) (Auto) 27.4 % Monocytes (%) (Auto) 13.0 % Eosinophils (%) (Auto) 1.9 % Basophils (%) (Auto) 0.7 % Neutrophils # (Auto) 5.48 K/uL Lymphocytes # (Auto) 2.64 K/uL Monocytes # (Auto) 1.25 K/uL Eosinophils # (Auto) 0.18 K/uL Basophils # (Auto) 0.07 K/uL RDW Standard Deviation 42.8 fL RDW Coefficient of Variation 14.1 % Immature Granulocyte % (Auto) 0.0 % Immature Granulocyte # (Auto) 0.00 K/uL Erythrocyte Sedimentation Rate 48 mm/hr Prothrombin Time 11.9 SECONDS Prothromb Time International Ratio 1.1 Activated Partial Thromboplast Time 33.4 SECONDS 40.3 SECONDS Partial Thromboplastin Ratio 1.3 1.5 Sodium Level 142 mmol/L Potassium Level 4.2 mmol/L Chloride Level 107 mmol/L Carbon Dioxide Level 28 mmol/L Anion Gap 7.0 mmol/L Blood Urea Nitrogen 14 mg/dl Creatinine 0.91 mg/dl Est Creatinine Clear Calc Drug Dose 139.0 ml/min Estimated GFR () 133.4 Estimated GFR (Non- 115.1 BUN/Creatinine Ratio 15.1 Random Glucose 99 mg/dl Calcium Level 9.1 mg/dl Magnesium Level 2.3 mg/dl Total Bilirubin 0.3 mg/dl Aspartate Amino Transf (AST/SGOT) 9 U/L Alanine Aminotransferase (ALT/SGPT) 18 U/L Alkaline Phosphatase 40 U/L C-Reactive Protein 5.80 mg/dl Total Protein 7.6 gm/dl Albumin 3.4 gm/dl Globulin 4.2 gm/dl Albumin/Globulin Ratio 0.8 Bedside Lactic Acid Venous 1.21 mmol/L Urine Color DK YELLOW Urine Appearance CLEAR Urine pH 7.5 Urine Specific [place] 1.018 Urine Protein NEG Urine Glucose (UA) NEG Urine Ketones NEG Urine Occult Blood NEG Urine Nitrite POS Urine Bilirubin NEG Urine Urobilinogen NEG Urine Leukocyte Esterase TRACE Urine WBC (Auto) 1-5 /hpf Urine RBC (Auto) 0-4 /hpf Urine Hyaline Casts (Auto) 1-5 /lpf Urine Epithelial Cells (Auto) 10-20 /lpf Urine Bacteria (Auto) NEG Urine Opiates Screen POS Urine Methadone, Qualitative NEG Urine Barbiturates NEG Urine Phencyclidine (PCP) Level NEG Ur Amphetamine/Methamphetamine NEG MDMA (Ecstasy) Screen NEG Urine Benzodiazepines Screen NEG Urine Cocaine Metabolite NEG Urine Marijuana (THC) NEG Date/Time Source Procedure Growth Status 01/05/17 01:45 Blood Blood Culture Pending Received 01/05/17 01:35 Blood Blood Culture Pending Received Assessment & Plan Right Upper ex DVT Mostly from Picc line doppler u/s showed acute dvt in right upper arm and right basilic vein superficial thrombophlebitis started on heparin drip discussed anticoagulant with pt, he is interested to start on the newer anticoagulant agents over coumadin risk discussed with patient and verbally understood Will check with case management in [place] to see if his insurance will cover the newer agents for him Continue morphine prn for pain Left arm tenderness/swelling .U/s showed Complex collections/abscesses within the left arm and forearm Ortho consulted recommends no need to aspirate because pt has antibiotic beads and culture will not grow anything. The swelling is due to subcutaneous antibiotic beads. as per ortho recommends observation will d/c IV abx Abnormal UA Denies any urinary symptoms No leukocytosis afebrile No need to treat DVT Px on heparin drip CODE STATUS on heparin drip Current Inpatient Medications: Current Inpatient Medications Medications (Trade) Dose Ordered Sig/Onofre Route Start Time Stop Time Status Last Admin Dose Admin Ketorolac Tromethamine (Toradol Inj) 30 mg Q6H PRN IV 01/05/17 02:30 01/10/17 02:29 01/05/17 16:18 30 MG Ibuprofen (Advil Tab) 400 mg Q6H PRN PO 01/05/17 02:30 02/04/17 02:29 Tramadol HCl (Ultram Tab) not relieved by tylenol @ Q6H PRN PO 01/05/17 02:30 02/04/17 02:29 01/05/17 12:57 50 MG Acetaminophen (Tylenol Tab) 650 mg Q4H PRN PO 01/05/17 02:45 02/04/17 02:44 Ondansetron HCl (Zofran Inj) 4 mg Q6H PRN IV 01/05/17 02:45 02/04/17 02:44 Lorazepam (Ativan Inj) 0.5 mg Q4H PRN IV 01/05/17 02:45 02/04/17 02:44 Piperacillin Sod/ Tazobactam Sod 1 ea 1 ea UD PRN N/A 01/05/17 04:15 02/04/17 04:14 Piperacillin Sod/ Tazobactam Sod 3.375 gm/Dextrose 115 ml @ 28.75 mls/ hr Q8H IV 01/05/17 10:00 01/15/17 09:59 01/05/17 11:21 28.75 MLS/HR Lorazepam 0.5 mg/ Syringe 1 ml @ 1 mls/min Q4H PRN IV 01/05/17 04:15 02/04/17 04:14 Heparin Sodium/ Dextrose (Heparin 25,000 Unit/500ml D5W) 500 ml @ 22 mls/hr [id number] PRN IV 01/05/17 05:00 02/04/17 04:59 01/05/17 12:52 22 MLS/HR Morphine Sulfate (MoRPHine SULFATE INJ) 1 mg Q4 PRN IV 01/05/17 12:00 01/19/17 11:59
[2017-01-05 19:20] LABS: PARTIAL THROMBOPLASTIN RATIO 1.4
[2017-01-06] VITALS: BP 95/55; PULSE 54; TEMP 36.9; O2SAT 98
[2017-01-06] MEDS: MoRPHine SULFATE 2 MG/ML CARP IV PRN (01:50)
[2017-01-06 02:37] LABS: PARTIAL THROMBOPLASTIN RATIO 1.8
[2017-01-06] MEDS ORDERED: HEPARIN IV BOLUS 3,000 UNIT in SYRINGE 0 ML IV ONE ×2 (03:00→10:30)
[2017-01-06] MEDS: HEPARIN 25,000 UNIT/500ML D5W 500 ML IV PRN ×2 (03:05→11:10)
--- NOTE | 2017-01-06 07:51 | Orthopedic Progress Note ---
Orthopedic Progress Note Date of Service Jan 06, 2017. Subjective Reports: complaints (Painful right arm. Left arm pain is controlled.), Denies: SOB, chest pain Objective N/V intact, capillary refill less than 2 sec., incision C/D/I, A&O x3 LUE: the forearm and the olecranon area have fluctuance that is stable compared to clinic visit on 01.02.17. No erythema, no streaking, No open/draining areas. Left elbow ROM is stable and doing well. RUE: Swelling has decreased with removal of the RUE PICC line when compared to 01.02.17. Induration at the forearm appears to have improved. Tender to palpation to the forearm and upper arm, particularly medial. Date Time Temp Pulse Resp B/P Pulse Ox O2 Delivery O2 Flow Rate FiO2 01/06/17 00:00 36.9 54 20 95/55 98 Room Air 01/05/17 23:59 Room Air 01/05/17 16:43 Room Air 01/05/17 16:09 36.8 86 20 95/59 94 Room Air 01/05/17 09:00 Room Air 01/05/17 08:37 77 01/05/17 08:07 36.4 45 20 95/56 97 Room Air Laboratory Results 24 Hours: Test 01/06/17 04:44 Assessment & Plan Assessment: s/p left forearm and olecranon I & D of abscess x 4 and implantation of antibiotic beads. RUE DVT Plan: Continue IV antibiotics. No surgical management at this time. Will continue to monitor. Discharge Planning Discharge Planning: uncertain
[2017-01-06 07:54] VITALS: BP 105/60; PULSE 54; TEMP 36.7; O2SAT 97
[2017-01-06 08:54] LABS: BASO % 1.5 %; BASO ABS # 0.07 K/uL (0-0.2); COMPLETE YES; EOS % 4.5 %; HEMATOCRIT 34.9 % (42-52); LYMPH % 40.2 %; LYMPH ABS # 1.89 K/uL (1.2-3.4); MEAN CELL VOLUME 82.9 fL (80-100); MEAN CORPUSCULAR HEMOGLOBIN 27.6 pg (25-34); MEAN CORPUSCULAR HGB CONC 33.2 g/dl (32-36); MEAN PLATELET VOLUME 9.6 fL (7.4-10.4); MONO % 14.7 %; NEUT % 39.1 %; PLATELET COUNT 280 K/uL (130-400); RED BLOOD COUNT 4.21 M/uL (4.7-6.1)
[2017-01-06 09:14] LABS: PARTIAL THROMBOPLASTIN RATIO 1.8
[2017-01-06 09:42] LABS: BUN/CREATININE RATIO 7.1 (10-20); CREATININE 0.92 mg/dl (0.60-1.40); POTASSIUM 3.9 mmol/L (3.5-5.1)
[2017-01-06] MEDS: KETOROLAC TROMETHAMINE 30 MG/ML VIAL IV PRN (10:38)
[2017-01-06] MEDS ORDERED: PIPERACILL/TAZOBAC CONSULT ACTIVE PRN (11:45)
[2017-01-06] MEDS ORDERED: PIPERACILL/TAZOBAC IV 3.375 GM in DEXTROSE 5% 100ML IV SCH (12:00)
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
--- NOTE | 2017-01-06 13:02 | Progress Note ---
Medicine Progress Note Date & Time of Visit: Jan 06, 2017 at 12:50. Subjective Pt was seen and examined Lying in bed comfortable with girlfriend at bedside Pt said that he is still having pain he said that the pain med help he wants to go home today he denies any chest pain, palpitation, fever, dizziness and sob Objective Last 8 Hrs Date Time Temp Pulse Resp B/P Pulse Ox O2 Delivery O2 Flow Rate FiO2 01/06/17 09:00 Room Air 01/06/17 07:54 36.7 54 18 105/60 97 Room Air Physical Exam: General- No acute distress Head- atraumatic Eyes- PERRL, EOMI ENT- oropharynx clear Neck- supple, no JVD Lungs- clear to auscultation and percussion Heart- regular, no murmur Abdomen- normal bowel sounds, soft Extremities- no calf tenderness, left elbow tenderness, left forearm swelling, healing scars from recent surgery of left forearm, no erythema Neuro- alert, oriented x 3; PERRL, EOMI Skin- warm & dry Laboratory Results: Last 24 Hours Test 01/05/17 19:00 01/06/17 01:48 01/06/17 08:46 Activated Partial Thromboplast Time 37.1 SECONDS 45.5 SECONDS 46.7 SECONDS Partial Thromboplastin Ratio 1.4 1.8 1.8 White Blood Count 4.70 K/uL Red Blood Count 4.21 M/uL Hemoglobin 11.6 g/dL Hematocrit 34.9 % Mean Corpuscular Volume 82.9 fL Mean Corpuscular Hemoglobin 27.6 pg Mean Corpuscular Hemoglobin Concent 33.2 g/dl Platelet Count 280 K/uL Mean Platelet Volume 9.6 fL Neutrophils (%) (Auto) 39.1 % Lymphocytes (%) (Auto) 40.2 % Monocytes (%) (Auto) 14.7 % Eosinophils (%) (Auto) 4.5 % Basophils (%) (Auto) 1.5 % Neutrophils # (Auto) 1.84 K/uL Lymphocytes # (Auto) 1.89 K/uL Monocytes # (Auto) 0.69 K/uL Eosinophils # (Auto) 0.21 K/uL Basophils # (Auto) 0.07 K/uL RDW Standard Deviation 43.3 fL RDW Coefficient of Variation 14.4 % Immature Granulocyte % (Auto) 0.0 % Immature Granulocyte # (Auto) 0.00 K/uL Sodium Level 142 mmol/L Potassium Level 3.9 mmol/L Chloride Level 107 mmol/L Carbon Dioxide Level 28 mmol/L Anion Gap 7.0 mmol/L Blood Urea Nitrogen 7 mg/dl Creatinine 0.92 mg/dl Est Creatinine Clear Calc Drug Dose 136.6 ml/min Estimated GFR () 131.6 Estimated GFR (Non- 113.6 BUN/Creatinine Ratio 7.1 Random Glucose 120 mg/dl Calcium Level 9.0 mg/dl Assessment & Plan Right Upper ex DVT Mostly from Picc line doppler u/s showed acute dvt in right upper arm and right basilic vein superficial thrombophlebitis started on heparin drip discussed anticoagulant with pt, he is interested to start on the newer anticoagulant agents over coumadin risk discussed with patient and verbally understood Will check with case management in [place] to see if his insurance will cover the newer agents for him Continue morphine prn for pain 01/06 Continue IV heparin drip will transition to po xarelto or pradaxa depend on which one 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 The swelling is due to subcutaneous antibiotic beads. as per ortho recommends observation 01/06 Case discussed with jeffrey Law consulted ID for abx choice upon discharge Case discussed with Leanna from ID that recommends Keflex and flagyl for 3-4 weeks Pt will follow up with ID in 1 week Abnormal UA Denies any urinary symptoms No leukocytosis afebrile No need to treat DVT Px on heparin drip CODE STATUS on heparin drip Consultants: Ortho ID Current Inpatient Medications: Current Inpatient Medications Medications (Trade) Dose Ordered Sig/Onofre Route Start Time Stop Time Status Last Admin Dose Admin Ketorolac Tromethamine (Toradol Inj) 30 mg Q6H PRN IV 01/05/17 02:30 01/10/17 02:29 01/06/17 10:38 30 MG Ibuprofen (Advil Tab) 400 mg Q6H PRN PO 01/05/17 02:30 02/04/17 02:29 Tramadol HCl (Ultram Tab) not relieved by tylenol @ Q6H PRN PO 01/05/17 02:30 02/04/17 02:29 01/05/17 19:56 50 MG Acetaminophen (Tylenol Tab) 650 mg Q4H PRN PO 01/05/17 02:45 02/04/17 02:44 Ondansetron HCl (Zofran Inj) 4 mg Q6H PRN IV 01/05/17 02:45 02/04/17 02:44 Lorazepam 0.5 mg 0.5 mg Q4H PRN IV 01/05/17 02:45 02/04/17 02:44 Lorazepam 0.5 mg/ Syringe 1 ml @ 1 mls/min Q4H PRN IV 01/05/17 04:15 02/04/17 04:14 Heparin Sodium/ Dextrose (Heparin 25,000 Unit/500ml D5W) 500 ml @ 29 mls/hr [id number] PRN IV 01/05/17 05:00 02/04/17 04:59 01/06/17 11:10 29 MLS/HR Morphine Sulfate 1 mg 1 mg Q4 PRN IV 01/05/17 12:00 01/19/17 11:59 01/06/17 01:50 1 MG Piperacillin Sod/ Tazobactam Sod/ Dextrose (Zosyn Iv/D5 100ml) 115 ml @ 28.75 mls/ hr Q8H IV 01/06/17 12:00 01/16/17 11:59 Piperacillin Sod/ Tazobactam Sod (Consult) 1 ea UD PRN N/A 01/06/17 11:45 02/05/17 11:44
[2017-01-06 15:22] VITALS: BP 107/62; PULSE 53; TEMP 37; O2SAT 97
[2017-01-06 16:00] VITALS: O2SAT 97
[2017-01-06] MEDS ORDERED: ENOXAPARIN 80 MG/0.8 ML SYR SQ SCH (16:00)
[2017-01-06] MEDS ORDERED: WARFARIN SOD 5 MG TAB PO ONE (16:30)
[2017-01-06] MEDS ORDERED: CEPH-571 PO (18:12)
[2017-01-06] MEDS ORDERED: WARF5TAB90 PO (18:12)
[2017-01-06] MEDS ORDERED: METR-163 PO (18:12)
[2017-01-06] MEDS ORDERED: OXYC-57 PO (18:12)
[2017-01-06] MEDS ORDERED: LVNIS80 SQ (18:12)
--- NOTE | 2017-01-06 18:24 | Discharge Instructions ---
Discharge Instructions Admission Reason for Admission: Cellulitis Discharge Discharge Diagnosis / Problem: (1) DVT of right axillary vein, acute VTE Date & Time Date of VTE Diagnosis: Jan 05, 2017 Time of VTE Diagnosis: 06:18 Discharge Goals Goal(s): Decrease discomfort, Improve function, Improve disease control Activity Recommendations Activity Limitations: resume your previous activity (as tolerated) . Instructions / Follow-Up Instructions / Follow-Up Follow up with your primary care physician Dr. Pham on 01/10 @ 12:10 Follow up with Infectious Disease in 1 week Follow up with Orthopedic Continue the lovenox until your physician or the coumadin clinic tell you to stop it Continue coumadin 5 mg daily (next dose is tomorrow), adjusting the dose as directed by the coumadin clinic INR goal should be between 2 to 3 Check INR on Friday You will be contacted by the coumadin clinic to monitor your INR Medication Instructions: * Warfarin is a medicine prescribed to prevent blood clots * Warfarin will thin your blood and help prevent new clots * Take your medications exactly as directed * Never skip a dose. Never take a double dose. If you miss a dose, take it as soon as you remember * It is important for your doctor to monitor your prothrombin time (PT). This is a lab test * Keep your appointment for lab tests Risk of Adverse Drug Reactions and Interactions: * Warfarin increases your risk of bleeding * The food you eat and other medications you take can affect how Warfarin works in your body * Ask your doctor about daily aspirin therapy * It is very important to talk with your doctor about all of the other medicines , antibiotics, vitamins or herbal products that you are taking * All of your medication must be approved by your doctor, including new medicines, as well as medicines you have taken before you started taking Warfarin Diet: * In order for Warfarin to work properly, it is important to keep your intake of Vitamin K as consistent as possible * You should avoid any sudden change in Vitamin K intake * Report any significant changes in your diet or weight to your doctor Call your Primary Care doctor if you experience any of the following: * Swelling or Pain in your leg * Sudden, continuous pain deep in a muscle * Pain that worsens when you are active or when you stand still for a long time * Chest Pain * Sudden Shortness of Breath * Rapid or pounding heart beat * Fainting * Dizziness * Cough with blood or bloody sputum * Sweating more than normal * Bruises * Heavy or uncontrolled bleeding * Blood in your urine, stool or vomit * Black or tarry stools Caring for Your Self at Home: * Avoid sitting, standing or lying down for long periods without moving your legs and feet * When traveling by car, stop to get out and move around at least once every 3 hours * On long airplane, train or bus rides, get up and move around when possible * If you can't get up, wiggle your toes and tighten your calves to keep your blood moving Follow Up: It is important for you to keep your follow up appointments with your medical provider. Current Hospital Diet Patient's current hospital diet: Regular Diet Discharge Diet Recommended Diet: Regular Diet Pending Studies Studies pending at discharge: no Medical Emergencies . Who to Call and When: Medical Emergencies: If at any time you feel your situation is an emergency, please call 911 immediately. . Non-Emergent Contact Non-Emergency issues call your: Primary Care Provider Call Non-Emergent contact if: you have any medication questions . . "Provider Documentation" section prepared by Misael White. VTE Core Measure Inpt VTE Proph given/why not?: Enoxaparin (Lovenox)SQ, Unfractionated heparin SQ, Warfarin (Coumadin) Reason no anticoag overlap I/P: Treatment provided - N/A Reason no anticoag overlap @DC: Treatment provided - N/A [place] Drug Monitoring Program Search Results: no issues identified (last narcotic refilled was 01/02 for 18 tabs)
[2017-01-06 18:27] VITALS: BP 107/62; PULSE 53; TEMP 37; O2SAT 97
--- NOTE | 2017-01-08 13:00 | EDITING REQUIRED CODING QUERY ---
ANEMIA Dear Dr. White, To promote full compliance with coding requirements relating to patient care, physician participation is requested in all cases of land leases and rentals manager uncertainty. Please assist us with the question(s) below: Coding Question(s): Postop Anemia Please specify the known or suspected type by placing an "X" within the parenthesis (x). If other, please document type. Examples are: ( ) Acute blood loss anemia ( ) Acute Postoperative blood loss anemia ( ) Acute postoperative anemia due to dilutional fluids ( ) Chronic blood loss anemia ( ) Anemia of chronic disease ( ) Anemia due to renal disease ( ) Anemia in neoplastic disease ( ) Iron deficient anemia ( ) Other: (please specify) (x ) Unable to determine Thank you for your time. Bobbi Fierro, FIELD OBSERVER
[2017-01-08 13:18] LABS: COD UR 93 NG/ML (CUTOFF=50); HYDROCOD UR NEGATIVE NG/ML (CUTOFF=50); HYDROMOR UR NEGATIVE NG/ML (CUTOFF=50); MORPHINE UR 15600 NG/ML (CUTOFF=50); NORHYDROCODONE CONF UR NEGATIVE NG/ML (CUTOFF=50); OXYMORPH UR NEGATIVE NG/ML (CUTOFF=50)
--- NOTE | 2017-01-09 09:20 | Discharge Summary ---
Discharge Summary Date of Service Jan 08, 2017. Discharge Summary Admission Date: Jan 05, 2017 at 02:15 Discharge Date: Jan 06, 2017 Discharge Disposition: Home Principal Diagnosis: Right upper ext DVT Secondary Diagnoses/Problems: Left arm tenderness/swelling Abnormal UA Procedures: VENOUS DOPPLER THE ARMS UPPER EXTREMITY VENOUS DOPPLER HISTORY: Pain. Abscess. Collection. B arm swelling, ? DVT COMPARISON STUDY: CT dated 12/31/2016 FINDINGS: Acute deep venous thrombosis within the right arm. This includes a right subclavian and right axillary vein. Superficial thrombophlebitis within the right basilic vein. Left arm shows no evidence for deep venous thrombosis. Complex fluid collections again noted within the forearm and elbow regions. IMPRESSION: 1. Acute deep venous thrombosis right upper arm. 2. Right basilic vein superficial thrombophlebitis. 3. Complex collections/abscesses within the left arm and forearm are again noted. Electronically signed by: Ancelmo Reyes M.D. 01/05/2017 6:21 AM Consultations: Orthopedic ID Medication Reconciliation New Medications: Cephalexin (Keflex) 500 Mg Cap 1 CAP PO QID for 21 Days, #84 CAP Warfarin Sodium (Coumadin) 5 Mg Tab 5 MG PO DAILY for 30 Days, #30 TAB Enoxaparin (Lovenox) 80 Mg/0.8 Ml Inj 80 MG SQ Q12@0600,1800 for 7 Days, #14 Changed Medications: Metronidazole (Flagyl) 500 Mg Tab 500 MG PO TID for 21 Days, #63 TAB (Changed from: BID; Removed Instructions) Oxycodone/Acetaminophen 5MG/325MG (Percocet 5MG/325MG) Tab 1 TABLET PO Q12 PRN for Pain for 5 Days, #10 TAB (Changed from: Q6H) PAIN Discontinued Medications: Doxycycline Hyclate (Doxycycline Hyclate) 100 Mg Tab 100 MG PO BID, TAB BEGIN 01/03/17 X9 DAYS Admission Information HPI (per Admitting provider): CHIEF COMPLAINT: Worsening right upper extremity swelling. HISTORY OF PRESENT ILLNESS: Medical history is significant for anxiety, migraine as per records, abscess LUE sp drainage, antibiotic rx. Recent confinement in the hospital last about 3 weeks ago for abscess of left forearm with secondary Left olecranon bursitis. ? spider bite as cause CS grew strep, peptostreptococcus, Prevotella. Patient underwent drainage procedures. Patient discharged on two week course of IV Ceftriaxone via PICC line and PO Flagyl. Improvement of left upper extremity infection as per px. Last week, patient noted right upper swelling ( PICC line site) along w/ fever and chills. No chest pain, no shortness of breath. Seen at the orthopedic doctor's office. Px sent to the Emergency Room for evaluation. PX received IV vancomycin in the ER for possible sepsis. Patient refused admission. Patient was discharged on doxycycline. Px had worsening of right upper extremity swelling despite compliance w/ meds. Patient had chills this morning, drenched in sweat as per . Left upper extremity swelling about the same; although he is complaining of "tightness" on the Left elbow. At the Emergency Room, the patient received IV Vancomycin Physical Exam (per Admitting): PHYSICAL EXAMINATION: VITAL SIGNS: Blood pressure was noted to be 130/74, pulse rate 90 RR 20 T 37 O2 _ sats 99 on room air. GENERAL: Noted to be comfortable, in no respiratory distress. SKIN: Pallor. HEENT: Pale palpebral conjunctivae. Dry mucosa. NECK: No JVD. Supple. CHEST: Clear to auscultation. HEART: Regular rate and rhythm. ABDOMEN: Soft. EXTREMITIES: Tender swelling on the right upper extremity healed incisional wound scars on localized swellings on the left forearm and L elbow, some tenderness, no erythema Hospital Course Right Upper ex DVT Mostly from Picc line doppler u/s showed acute dvt in right upper arm and right basilic vein superficial thrombophlebitis started on heparin drip discussed anticoagulant with pt, he is interested to start on the newer anticoagulant agents over coumadin risk discussed with patient and verbally understood Will check with case management in am to see if his insurance will cover the newer agents for him Continue morphine prn for pain Left arm tenderness/swelling .U/s showed Complex collections/abscesses within the left arm and forearm Ortho consulted recommends no need to aspirate because pt has antibiotic beads and culture will not grow anything. The swelling is due to subcutaneous antibiotic beads. as per ortho recommends observation will d/c IV abx Abnormal UA Denies any urinary symptoms No leukocytosis afebrile No need to treat DVT Px on heparin drip CODE STATUS on heparin drip Total time spent on discharge = 35 minutes This includes examination of the patient, discharge planning, medication reconciliation, and communication with other providers. Discharge Instructions Discharge Instructions Admission Reason for Admission: Cellulitis Discharge Discharge Diagnosis / Problem: (1) DVT of right axillary vein, acute VTE Date & Time Date of VTE Diagnosis: Jan 05, 2017 Time of VTE Diagnosis: 06:18 Discharge Goals Goal(s): Decrease discomfort, Improve function, Improve disease control Activity Recommendations Activity Limitations: resume your previous activity (as tolerated) . Instructions / Follow-Up Instructions / Follow-Up Follow up with your primary care physician Dr. Pham on 01/10 @ 12:10 Follow up with Infectious Disease in 1 week Follow up with Orthopedic Continue the lovenox until your physician or the coumadin clinic tell you to stop it Continue coumadin 5 mg daily (next dose is tomorrow), adjusting the dose as directed by the coumadin clinic INR goal should be between 2 to 3 Check INR on Friday You will be contacted by the coumadin clinic to monitor your INR Medication Instructions: * Warfarin is a medicine prescribed to prevent blood clots * Warfarin will thin your blood and help prevent new clots * Take your medications exactly as directed * Never skip a dose. Never take a double dose. If you miss a dose, take it as soon as you remember * It is important for your doctor to monitor your prothrombin time (PT). This is a lab test * Keep your appointment for lab tests Risk of Adverse Drug Reactions and Interactions: * Warfarin increases your risk of bleeding * The food you eat and other medications you take can affect how Warfarin works in your body * Ask your doctor about daily aspirin therapy * It is very important to talk with your doctor about all of the other medicines , antibiotics, vitamins or herbal products that you are taking * All of your medication must be approved by your doctor, including new medicines, as well as medicines you have taken before you started taking Warfarin Diet: * In order for Warfarin to work properly, it is important to keep your intake of Vitamin K as consistent as possible * You should avoid any sudden change in Vitamin K intake * Report any significant changes in your diet or weight to your doctor Call your Primary Care doctor if you experience any of the following: * Swelling or Pain in your leg * Sudden, continuous pain deep in a muscle * Pain that worsens when you are active or when you stand still for a long time * Chest Pain * Sudden Shortness of Breath * Rapid or pounding heart beat * Fainting * Dizziness * Cough with blood or bloody sputum * Sweating more than normal * Bruises * Heavy or uncontrolled bleeding * Blood in your urine, stool or vomit * Black or tarry stools Caring for Your Self at Home: * Avoid sitting, standing or lying down for long periods without moving your legs and feet * When traveling by car, stop to get out and move around at least once every 3 hours * On long airplane, train or bus rides, get up and move around when possible * If you can't get up, wiggle your toes and tighten your calves to keep your blood moving Follow Up: It is important for you to keep your follow up appointments with your medical provider. Current Hospital Diet Patient's current hospital diet: Regular Diet Discharge Diet Recommended Diet: Regular Diet Pending Studies Studies pending at discharge: no Medical Emergencies . Who to Call and When: Medical Emergencies: If at any time you feel your situation is an emergency, please call 911 immediately. . Non-Emergent Contact Non-Emergency issues call your: Primary Care Provider Call Non-Emergent contact if: you have any medication questions . . "Provider Documentation" section prepared by Misael White. VTE Core Measure Inpt VTE Proph given/why not?: Enoxaparin (Lovenox)SQ, Unfractionated heparin SQ, Warfarin (Coumadin) Reason no anticoag overlap I/P: Treatment provided - N/A Reason no anticoag overlap @DC: Treatment provided - N/A [place] Drug Monitoring Program Search Results: no issues identified (last narcotic refilled was 01/02 for 18 tabs) Additional Copies To Nohelia Pham M.D. (MEDICAL)
== END 2017-01-06 18:30 | disposition home or self-care (01) | DRG 315 ==
LOC: CANRESERV → ENRESERVTM → ENRESERVDT → C.EDB 01:05 → C.MS2W 02:15
PROVIDERS: ADMIT Internal Medicine; ATTEND Internal Medicine
DX: T82.868A Thrombosis due to vascular prosthetic devices, implants and grafts, initial encounter (principal); I82.A11 Acute embolism and thrombosis of right axillary vein; L02.414 Cutaneous abscess of left upper limb; I82.611 Acute embolism and thrombosis of superficial veins of right upper extremity; D64.9 Anemia, unspecified; R82.90 Unspecified abnormal findings in urine; F17.210 Nicotine dependence, cigarettes, uncomplicated

== ENCOUNTER 2017-07-08 06:17 | Emergency (ER) | payer OTHER ==
[~2017-07-08] VITALS: Ht 190.5 cm; Wt 77.9 kg
[~2017-07-08 06:17] MED LIST changes: -HYDR-5688 PO; +LVNIS80 SQ; +METR-163 PO; +OXYC-57 PO
[2017-07-08 06:22] VITALS: TEMP 37; Ht 190.5 cm; Wt 77.9 kg
[2017-07-08] MEDS ORDERED: ONDANSETRON INJ 2 MG/ML 2 ML VIAL IV PRN (06:45)
[2017-07-08] MEDS ORDERED: MoRPHine SULFATE 10 MG/ML CARP/VIAL IV PRN (06:45)
[2017-07-08] MEDS ORDERED: MoRPHine SULFATE 10 MG/ML CARP/VIAL IM STA (07:16)
[2017-07-08] MEDS ORDERED: ONDANSETRON 4MG OD TAB SL ONE (07:30)
[2017-07-08 07:35] LABS: BASO % 0.1 %; BASO ABS # 0.01 K/uL (0-0.2); COMPLETE YES; EOS % 0.2 %; HEMATOCRIT 33.8 % (42-52); IG% 0.2 %; LYMPH % 15.2 %; LYMPH ABS # 1.68 K/uL (1.2-3.4); MEAN CELL VOLUME 81.3 fL (80-100); MEAN CORPUSCULAR HEMOGLOBIN 27.4 pg (25-34); MEAN CORPUSCULAR HGB CONC 33.7 g/dl (32-36); MEAN PLATELET VOLUME 10.1 fL (7.4-10.4); MONO % 11.7 %; NEUT % 72.6 %; PLATELET COUNT 197 K/uL (130-400); RED BLOOD COUNT 4.16 M/uL (4.7-6.1); WHITE BLOOD COUNT 11.03 K/uL (4.8-10.8)
--- NOTE | 2017-07-08 07:41 | DIAGNOSTIC IMAGING REPORT ---
CT SCAN OF THE BRAIN WITHOUT IV CONTRAST CLINICAL HISTORY: Headache. COMPARISON STUDY: CT of the brain dated 08/04/2016. TECHNIQUE: Unenhanced axial CT scan of the brain is performed from the vertex to the skull base. Automated dose control exposure was utilized. CT DOSE: 537.48 mGy.cm FINDINGS: Brain parenchyma: The brain parenchyma is normal in appearance. There is no hemorrhage, mass effect, or evidence of acute territorial ischemia by CT criteria. Gorman-white matter is preserved. No extra-axial fluid collection is seen. Ventricles, sulci, cisterns: Normal in configuration. Intracranial vasculature: The visualized intracranial vasculature at the skull base is normal in appearance. Calvarium: The calvarium appears intact. Sinuses and mastoids: The visualized paranasal sinuses are clear. The mastoid air cells are well pneumatized. Orbits: The bony orbits are grossly intact. IMPRESSION: No acute intracranial abnormality. Electronically signed by: Balwinder Argueta M.D. 07/08/2017 7:40 AM Dictated Date/Time: 07/08/2017 7:39 AM
[2017-07-08 07:52] LABS: BUN/CREATININE RATIO 12.9 (10-20); CALCIUM 8.8 mg/dl (8.5-10.1); CREATININE 0.91 mg/dl (0.60-1.40); POTASSIUM 4.4 mmol/L (3.5-5.1)
[2017-07-08 07:54] LABS: ALB/GLOB RATIO 0.8 (0.9-2)
--- NOTE | 2017-07-08 08:14 | DIAGNOSTIC IMAGING REPORT ---
LEFT HIP UNILATERAL 2 VIEWS HISTORY: 26 years-old Male acute left-sided hip pain. COMPARISON: CT abdomen and pelvis 08/04/2016 TECHNIQUE: 2 views of the left hip FINDINGS: No acute fracture, dislocation or significant degenerative changes. There is no evidence of femoral acetabular impingement. Soft tissues are unremarkable without radiopaque foreign body. IMPRESSION: Unremarkable left hip radiographs. The above report was generated using voice recognition software. It may contain grammatical, syntax or spelling errors. Electronically signed by: Robin Coyle M.D. 07/08/2017 8:13 AM Dictated Date/Time: 07/08/2017 8:11 AM
--- NOTE | 2017-07-08 08:17 | EMERGENCY ROOM VISIT NOTE ---
History Report prepared by Tevin: Elda Garcia Under the Supervision of: Dr. Chalo Paz M.D. First contact with patient: 06:29 Chief Complaint: HIP PAIN Stated Complaint: HIP/LWR BACK PAIN,CAN'T KEEP ANYTHING DOWN,FEVER History of Present Illness The patient is a 26 year old male who presents to the Emergency Room with complaints of persistent headache starting 3 days ago. He notes that he has felt sick for the past 3 days with intermittent fever, diaphoresis, vomiting, and headache. The headache is across his forehead from rastafari to rastafari. He denies any head injury or history of migraines. He also complains of left hip pain which worsens when he walks. He denies any injury to his hip. He denies any abdominal pain, sinus drainage, or dysuria. He denies any changes to his bowel movements. He has never experienced these symptoms before. He does have a history of lower back pain which resolved on its own. He has gotten headaches in the past, but not recently. He denies any other medical problems. Source of History: patient Onset: 3 days ago Position: head Quality: ache Timing: other (persistent) Associated Symptoms: + fevers, + diaphoresis, + vomiting, No abdominal pain , No urinary symptoms Note: Pt denies sinus drainage, change in bowel movement. Review of Systems All systems have been listed, reviewed, and are negative other than those previously mentioned. Please see Additional Medical History Sheet. 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 Social History Smoking Status: Never Smoker Alcohol Use: occasionally Drug Use: none Marital Status: in relationship Housing Status: lives alone Occupation Status: employed Current/Historical Medications Scheduled PRN Ibuprofen Tab (Motrin), 600 MG PO Q6H PRN for Pain Allergies Coded Allergies: No Known Allergies (Unverified , NONE, 07/08/17) Physical Exam Vital Signs Date Time Temp Pulse Resp B/P (MAP) Pulse Ox O2 Delivery O2 Flow Rate FiO2 07/08/17 10:45 68 20 110/68 98 07/08/17 08:52 68 20 105/57 98 Room Air 07/08/17 07:54 68 20 99/65 97 Room Air 07/08/17 06:22 37.0 80 18 104/70 99 Room Air Nasal Cannula Physical Exam GENERAL: Patient awake, alert, oriented x 3. Patient appears in moderate distress. Patient follows commands. Patient does not appear toxic. Patient is adequately hydrated and well-nourished. SKIN: No erythema, pallor, cyanosis or rash HEENT: Normal head, pupils equal, reactive to light and accommodation. Ears normal. Oral cavity and posterior pharynx appear normal. Neck: Without adenopathy, no neck vein distention. No meningeal findings. LUNGS: Clear to auscultation. No wheezes, no rales, no rhonchi. HEART: No murmurs. No gallops. No rubs ABDOMEN: No masses, no rebound, no hepatomegaly or splenomegaly. EXTREMITIES: Pain over anterior left iliac crest with movement of left leg. NEUROLOGIC: Cranial nerves II-XII within normal limits. No gross motor sensory function deficits. Medical Decision & Procedures ER Provider Diagnostic Interpretation: X ray results are stated below per my interpretation and the radiologist's interpretation. Radiology results as stated below per my review and radiologist interpretation: LEFT HIP UNILATERAL 2 VIEWS HISTORY: 26 years-old Male acute left-sided hip pain. COMPARISON: CT abdomen and pelvis 08/04/2016 TECHNIQUE: 2 views of the left hip FINDINGS: No acute fracture, dislocation or significant degenerative changes. There is no evidence of femoral acetabular impingement. Soft tissues are unremarkable without radiopaque foreign body. IMPRESSION: Unremarkable left hip radiographs. The above report was generated using voice recognition software. It may contain grammatical, syntax or spelling errors. Electronically signed by: Robin Coyle M.D. 07/08/2017 8:13 AM Dictated Date/Time: 07/08/2017 8:[address] SCAN OF THE BRAIN WITHOUT IV CONTRAST CLINICAL HISTORY: Headache. COMPARISON STUDY: CT of the brain dated 08/04/2016. TECHNIQUE: Unenhanced axial CT scan of the brain is performed from the vertex to the skull base. Automated dose control exposure was utilized. CT DOSE: 537.48 mGy.cm FINDINGS: Brain parenchyma: The brain parenchyma is normal in appearance. There is no hemorrhage, mass effect, or evidence of acute territorial ischemia by CT criteria. Gorman-white matter is preserved. No extra-axial fluid collection is seen. Ventricles, sulci, cisterns: Normal in configuration. Intracranial vasculature: The visualized intracranial vasculature at the skull base is normal in appearance. Calvarium: The calvarium appears intact. Sinuses and mastoids: The visualized paranasal sinuses are clear. The mastoid air cells are well pneumatized. Orbits: The bony orbits are grossly intact. IMPRESSION: No acute intracranial abnormality. Electronically signed by: Balwinder Argueta M.D. 07/08/2017 7:40 AM Dictated Date/Time: 07/08/2017 7:39 AM Laboratory Results 07/08/17 07:23 Red Blood Count 4.16, Mean Corpuscular Volume 81.3, Mean Corpuscular Hemoglobin 27.4, Mean Corpuscular Hemoglobin Concent 33.7, Mean Platelet Volume 10.1, Neutrophils (%) (Auto) 72.6, Lymphocytes (%) (Auto) 15.2, Monocytes (%) (Auto) 11.7, Eosinophils (%) (Auto) 0.2, Basophils (%) (Auto) 0.1, Neutrophils # (Auto ) 8.01, Lymphocytes # (Auto) 1.68, Monocytes # (Auto) 1.29, Eosinophils # (Auto ) 0.02, Basophils # (Auto) 0.01 07/08/17 07:23 Test 07/08/17 07:23 White Blood Count 11.03 K/uL (4.8-10.8) Red Blood Count 4.16 M/uL (4.7-6.1) Hemoglobin 11.4 g/dL (14.0-18.0) Hematocrit 33.8 % (42-52) Mean Corpuscular Volume 81.3 fL (80-100) Mean Corpuscular Hemoglobin 27.4 pg (25-34) Mean Corpuscular Hemoglobin Concent 33.7 g/dl (32-36) Platelet Count 197 K/uL (130-400) Mean Platelet Volume 10.1 fL (7.4-10.4) Neutrophils (%) (Auto) 72.6 % Lymphocytes (%) (Auto) 15.2 % Monocytes (%) (Auto) 11.7 % Eosinophils (%) (Auto) 0.2 % Basophils (%) (Auto) 0.1 % Neutrophils # (Auto) 8.01 K/uL (1.4-6.5) Lymphocytes # (Auto) 1.68 K/uL (1.2-3.4) Monocytes # (Auto) 1.29 K/uL (0.11-0.59) Eosinophils # (Auto) 0.02 K/uL (0-0.5) Basophils # (Auto) 0.01 K/uL (0-0.2) RDW Standard Deviation 43.9 fL (36.4-46.3) RDW Coefficient of Variation 14.7 % (11.5-14.5) Immature Granulocyte % (Auto) 0.2 % Immature Granulocyte # (Auto) 0.02 K/uL (0.00-0.02) Anion Gap 5.0 mmol/L (3-11) Est Creatinine Clear Calc Drug Dose 134.4 ml/min Estimated GFR () 133.4 Estimated GFR (Non- 115.1 BUN/Creatinine Ratio 12.9 (10-20) Calcium Level 8.8 mg/dl (8.5-10.1) Total Bilirubin 0.7 mg/dl (0.2-1) Aspartate Amino Transf (AST/SGOT) 11 U/L (15-37) Alanine Aminotransferase (ALT/SGPT) 13 U/L (12-78) Alkaline Phosphatase 44 U/L (45-117) Total Protein 7.0 gm/dl (6.4-8.2) Albumin 3.0 gm/dl (3.4-5.0) Globulin 4.0 gm/dl (2.5-4.0) Albumin/Globulin Ratio 0.8 (0.9-2) Laboratory results as stated above per my review. Medications Administered Medications (Trade) Dose Ordered Sig/Onofre Route Start Time Stop Time Status Last Admin Dose Admin Morphine Sulfate (MoRPHine SULFATE INJ) 8 mg NOW STAT IM 07/08/17 07:16 07/08/17 07:18 DC 07/08/17 07:52 8 MG Ondansetron HCl (Zofran Odt) 4 mg ONE ONCE SL 07/08/17 07:30 07/08/17 07:31 DC 07/08/17 07:52 4 MG Ketorolac Tromethamine (Toradol Inj) 60 mg NOW STAT IM 07/08/17 09:05 8/22/17 09:06 DC 07/08/17 09:13 60 MG ED Course 0630: Past medical records reviewed. The patient was evaluated in room A12B. A complete history and physical examination was performed. 0716: Morphine Sulfate 8 mg IM. 0730: Zofran Odt 4 mg SL. 0901: I reevaluated the patient. He still has significant pain in the left hip and head. He will be discharged home after Toradol. 0905: Toradol Inj 60 mg IM. 1012: I went to reevaluate the patient, but he was in the bathroom. 1028: I reevaluated the patient. He is feeling a little better. He still has some headache and left hip pain. I discussed the results and treatment plan with him. He verbalized understanding and agreement. He was discharged home. Medical Decision Nurses notes reviewed. Medical history sheet reviewed. Differential diagnosis includes but is not limited to: sinus headache, tension headache, migraine headache, meningitis, encephalitis, viremia, septic hip. The patient is here complaining of left hip pain and a headache. He has no fever. Multiple labs and imaging were performed. CT does not reveal any signs of bleed or CVA. X-ray reveals no signs of fracture dislocation or signs of arthritis. Nurses were unable to start an IV in the patient. He is a past IV drug abuser. The patient has not used as IV drugs for approximately 1 year. I did consider the possibility of a septic joint although he does not have signs and symptoms suggestive of that process. More likely this is probably a viral etiology. The patient was given IM Toradol here. He will be maintained on ibuprofen. He is to follow-up with his family physician within the week. The patient was unable to provide a urine sample. Medication Reconcilliation Current Medication List: was personally reviewed by me Blood Pressure Screening Patient's blood pressure: Normal blood pressure Blood pressure disposition: Did not require urgent referral Impression Primary Impression: Headache Additional Impression: Left hip pain Scribe Attestation The scribe's documentation has been prepared under my direction and personally reviewed by me in its entirety. I confirm that the note above accurately reflects all work, treatment, procedures, and medical decision making performed by me. Departure Information Dispostion Home / Self-Care Prescriptions Ibuprofen Tab (MOTRIN) 600 Mg Tab 600 MG PO Q6H Y for Pain, #20 TAB Prov: Chalo Paz M.D. 07/08/17 Referrals Nohelia Pham M.D. (MEDICAL) (PCP) Patient Instructions My [facility] Additional Instructions 600 mg ibuprofen every 6 hours until pain has resolved. Follow-up with your family physician within the next 7 days. Problem Qualifiers
[2017-07-08] MEDS ORDERED: KETOROLAC TROMETHAMINE 60 MG/2 ML VIAL IM STA (09:05)
[2017-07-08] MEDS ORDERED: IBUP-1427 PO (09:09)
[2017-07-08 10:45] VITALS: BP 110/68; PULSE 68; O2SAT 98
== END 2017-07-08 10:47 | disposition home or self-care (01) ==
LOC: C.EDB 06:19 → C.EDA 10:47
DX: R51 Headache (principal); M25.552 Pain in left hip; F32.9 Major depressive disorder, single episode, unspecified; F19.21 Other psychoactive substance dependence, in remission

== ENCOUNTER 2017-08-12 14:11 | Emergency (ER) | payer OTHER ==
[~2017-08-12] VITALS: Ht 188 cm; Wt 77.0 kg
[~2017-08-12 14:11] MED LIST changes: +IBUP-1427 PO; -LVNIS80 SQ; -METR-163 PO; -OXYC-57 PO
[2017-08-12 14:14] VITALS: BP 110/57; PULSE 106; TEMP 37.8; O2SAT 94; Ht 188 cm; Wt 77.0 kg
== END 2017-08-12 16:20 | disposition left against medical advice (07) ==
LOC: C.EDB 14:12 → C.EDC 16:20
DX: R11.10 Vomiting, unspecified (principal)

== ENCOUNTER 2017-10-02 17:31 | Emergency (ER) | payer OTHER ==
[~2017-10-02] VITALS: Ht 188 cm; Wt 84.0 kg
[2017-10-02 17:38] VITALS: Ht 188 cm; Wt 84.0 kg
[2017-10-02] MEDS ORDERED: METH5SOL PO (18:17)
--- NOTE | 2017-10-02 18:54 | DIAGNOSTIC IMAGING REPORT ---
CERVICAL SPINE W/O CT DOSE: 236.50 mGy.cm CLINICAL HISTORY: 26 years-old Male with L arm numbness and weakness. Acute left arm numbness with weakness COMPARISON: CT cervical spine 08/04/2016 TECHNIQUE: Multiple axial CT images of the cervical spine were obtained without contrast. A dose lowering technique was utilized adhering to the principles of ALARA. FINDINGS: Vertebral body heights and alignment are normal. No fracture or subluxation is identifed. The intervertebral disc spaces are preserved. No significant central canal or neural foraminal stenosis is identified. There is straightening of the normal cervical lordosis. The cervical soft tissues appear unremarkable. The visualized lung apices appear clear. Mild mucoperiosteal thickening of the maxillary sinuses is noted. IMPRESSION: 1. No acute cervical spine fracture or subluxation. 2. No significant degenerative changes identified. 3. Mild straightening of the normal cervical lordosis. The above report was generated using voice recognition software. It may contain grammatical, syntax or spelling errors. Electronically signed by: Robin Coyle M.D. 10/02/2017 6:53 PM Dictated Date/Time: 10/02/2017 6:48 PM
[2017-10-02] MEDS ORDERED: PRED20TA2 PO (19:14)
[2017-10-02 19:25] VITALS: BP 95/53; PULSE 65; TEMP 37; O2SAT 98
--- NOTE | 2017-10-03 18:30 | EMERGENCY ROOM VISIT NOTE ---
ED Visit Note First contact with patient: 17:45 Chief Complaint: I'm having bad right arm pain and sometimes I lose feeling in my lower arm. History of Present Illness: Mr. Karin Frazier is a 26-year-old white male who ambulates into the ED accompanied by female friend complaining of right upper arm pain and numbness. Patient reports his symptoms started approximately 3 weeks ago. He does not remember any precipitating trauma to the arm or the neck. He does remember starting after work but reports he does not remember any heavy lifting or any significant events during work. He describes his pain as a burning sensation. The pain starts over anterior and lateral shoulder and radiates down the anterior upper arm to the level of the elbow. He rates his discomfort 8/10 but does report it waxes and wanes in intensity. His pain worsens with palpation of the anterior lateral aspect of the shoulder. He has not identified any alleviating factors related to the pain. He has been using ibuprofen without relief of his discomfort. Associated with his pain intermittently when he wakes from sleep he feels like his arm is asleep with paresthesias extending from the elbow to the hand. Additionally he does report that he is on a methadone treatment program and that he had a electrolyte bursitis in the right elbow and was receiving steroids injections. He denies fevers, chills, sweats, skin eruptions, skin color changes, headache, neck pain, neck stiffness, thoracic back pain, chest pain, shortness of breath, upper respiratory tract symptoms, arm weakness. Review of Systems: As noted above in history of present illness. 8 body systems were reviewed and found to be negative as noted above. Past Medical History: Pneumonia Current Medications: Methadone. Allergies to Medications: Patient denies. Social History: Patient is currently employed; he feels safe in his home environment; he denies tobacco and alcohol use. Physical Examination: Vital Signs: Date Time Temp Pulse Resp B/P (MAP) Pulse Ox O2 Delivery O2 Flow Rate FiO2 10/02/17 19:25 37.0 65 16 95/53 98 Room Air 10/02/17 17:38 37.0 79 16 144/80 98 Room Air GENERAL: 26-year-old male in mild distress due to pain, nontoxic-appearing, afebrile and hemodynamically stable. NEUROLOGICAL: Awake, alert and oriented to person, place and time. Answering questions appropriately and following commands. Normal gait. Good hand eye coordination. SKIN: Warm, dry and pink. No soft tissue eruptions or trauma noted. HEENT: Atraumatic and normocephalic. BACK: No tenderness over the bony cervical and thoracic spine. Mild tenderness in the cervical and thoracic paraspinous culture without spasm. THORAX: Lungs sounds are clear to auscultation and equal bilaterally with symmetrical chest wall. RIGHT UPPER EXTREMITY: No gross bony deformity. Mild diffuse tenderness over the anterior lateral shoulder without muscle spasm, bony deformity, bony crepitus, swelling, erythema or ecchymosis. No tenderness over the sternoclavicular, clavicle, acromioclavicular and scapula. Full range of motion with passive movements of the shoulder. Decreased range of motion with active and resistive range of motion predominantly in abduction and flexion of the shoulder. With the shoulder stabilize she does have full range of motion in flexion, extension of the elbow, pronation and supination of forearm and flexion and extension of the wrist against resistance. Throughout the lower arm and hand the skin was warm and pink and capillary refill is brisk. He was able to distinguish light sensations through all dermatomes. ED Course: Patient is assessed as noted above. Patient's medication list was reviewed. Cervical Spine CT: Was reviewed by myself and read by the radiologist and shows no cervical fracture subluxation or significant degenerative changes. Patient was given 60 mg of prednisone by mouth. Patient was placed in an arm sling and instructed on its use. Patient was educated about today's findings and instructed on his treatment plan ; he verbalized understanding and agreement with this plan. Clinical Impression: Cervical radiculopathy. Disposition: Patient was discharged home in stable condition accompanied by his female friends; prior to departure he was reassessed and subjectively reported he was feeling better and rated his discomfort 5/10. Plan: Patient was encouraged to alternate ibuprofen and acetaminophen every 3 hours. Patient was prescribed prednisone 60 mg for 5 additional days. Patient was encouraged to follow-up with family physician for recheck and possible referral to orthopedics if no better in 5-6 days. Patient was encouraged to use sling until resolution of pain. Patient was encouraged return ED for worsening pain, worsening numbness, right arm weakness or any new/concerning symptoms.
== END 2017-10-02 19:28 | disposition home or self-care (01) ==
LOC: C.EDB 17:33 → C.EDD 19:28
DX: M54.12 Radiculopathy, cervical region (principal); Z79.891 Long term (current) use of opiate analgesic